=== PATIENT | female | born 1940 | race Caucasian/White ===

== ENCOUNTER 2021-03-07 15:29 | Emergency (ER) | payer MEDICARE, OTHER, MEDICAID, SELFPAY ==
--- NOTE | ~2021-03-07 | XR_ITS ---
XR femur RT min 2V 03/07/2021 16:01 Indication: Right leg deformity. Patient heard pop with movement Procedure: 2 views right femur Comparison: No prior studies for comparison. Findings: There is an oblique displaced midshaft fracture of the femur with overriding of fracture fr agments as well as 22 degrees varus angulation. There is an intramedullary kajal with dynamic compressi on screw of the right femoral neck. There is chondrocalcinosis of the knee with moderate osteoarthrit is. There is extensive atherosclerosis. Impression: 1: Oblique displaced, angulated midshaft fracture of the right femur with overriding of fracture frag ments. Reviewed, dictated and finalized at location A. Impression: 1: Oblique displaced, angulated midshaft fracture of the right femur with overr iding of fracture fragments.
[2021-03-07 15:38] VITALS: BP 164/74; PULSE 81; RESP 13; TEMP 36.6; O2SAT 100
--- NOTE | 2021-03-07 15:38 | ED.LOWEXIN ---
HPI - Extremity Injury (Lower) General Chief Complaint: Extremity Injury, Lower Stated Complaint: Femur fracture - from [place] Time Seen by Provider: 03/07/21 15:33 History of Present Illness HPI Narrative: Patient is an 80-year-old female who presents ER with right femur deformity. Patient had recent left AKA at [facility] on 02/18/2021. Last night patient was being assisted from wheelchair to bed. The individual transferring the patient apparently could not fully hold her and patient slipped down. They then tried to pull her up towards the bed patient felt her legs snap while being pushed against the bed. X-ray apparently was obtained today and showed a femur fracture and the snf at the patient transferred to this facility. Patient reports 7/10 pain. She has no numbness or tingling. There is obvious deformity to the distal femur. There is a old wound to the lateral aspect of the right knee that is not related to the injury per patient and has a dressing on it. There is old bruising around it. Related Data Allergies Allergy/AdvReac Type Severity Reaction Status Date / Time levorphanol AdvReac Itching Verified 03/07/21 15:44 Penicillins AdvReac Itching Verified 03/07/21 15:44 vancomycin AdvReac Itching Verified 03/07/21 15:44 Review of Systems Review of Systems: All systems reviewed & are unremarkable except as noted in HPI and below Musculoskeletal: Comments: Right femur deformity/pain. Neurologic: Denies focal weakness and Denies numbness PMFSH Past Medical History Medical History (Updated 03/07/21 @ 16:42 by Michael Aguillon MD) Diabetes History of atrial fibrillation Hypertension Surgical History Surgical History (Updated 03/07/21 @ 16:28 by Michael Aguillon MD) History of hip surgery History of left above knee amputation Pacemaker Social History Social History (Updated 03/07/21 @ 16:29 by Michael Aguillon MD) Social History: Resides at [facility] Smoking status: Never smoker Exam Narrative: Exam Narrative: GENERAL: Well-appearing, well-nourished, and in no acute distress. HEAD: Normocephalic, atraumatic. ENT: Mucous membranes moist. CHEST: Clear to auscultation. No respiratory distress. HEART: Regular rate and rhythm. Normal peripheral pulses. EXTREMITIES: Left lower extremity with AKA and wrapped. Right lower extremity with deformity of the femur. Sensation intact in right lower extremity with normal dorsalis pedis and posterior tibial pulses. Patient can move at the ankle and toes. Fracture is closed. SKIN: Warm, dry, no rash. Bruising and dressed wound to the lateral aspect of the right knee with bruising. NEURO: Alert and oriented x3. PSYCH: Normal mood and affect. Course Course Emergency Course: Orthopedic surgery has selected images and recommends tertiary care center given midshaft large bone fracture with proximal hardware and recent admission at [facility]. I have discussed the case with the ER and Dr. Berrios who has accepted the patient. Vital Signs Vital signs: Vital Signs Temperature 97.8 F 03/07/21 15:38 Pulse Rate 81 03/07/21 15:38 Respiratory Rate 13 03/07/21 15:38 Blood Pressure 164/74 H 03/07/21 15:38 Pulse Oximetry 100 03/07/21 15:38 Temperature 97.8 F 03/07/21 15:38 Pulse Rate 81 03/07/21 15:38 Respiratory Rate 13 03/07/21 15:38 Blood Pressure 164/74 H 03/07/21 15:38 Pulse Oximetry 100 03/07/21 15:38 MDM - Extremity Injury (Lower) Imaging Data Radiologist's impression: ITS Impressions Femur X-Ray 03/07/21 16:02 Impression: 1: Oblique displaced, angulated midshaft fracture of the right femur with overriding of fracture fragments. Discharge Plan Discharge Clinical Impression: Femur fracture, right Patient Disposition: Acute Care Hospital Condition: Stable Follow-up/Referrals: Juan Jose,Mynor Moya MD [Primary Care Provider] -
--- NOTE | 2021-03-07 16:47 | PC.NURSE ---
made contact with wally to transfer pt to [facility]. darell sims is in route
[2021-03-07] MEDS: MORPHINE SULFATE (*CRX) 4 MG/ML INJ IV PUSH (17:06)
[2021-03-07 17:08] VITALS: BP 160/68; PULSE 72; RESP 23; O2SAT 99
--- NOTE | 2021-03-07 18:17 | PC.NURSE ---
[facility] has arrived
[2021-03-07 18:32] VITALS: BP 156/71; PULSE 98; RESP 19; O2SAT 96
== END 2021-03-07 18:33 | disposition short-term general hospital (02) ==
PROVIDERS: Emergency Provider Emergency Medicine; PCP Family Medicine
DX: S72.331A Displaced oblique fracture of shaft of right femur, initial encounter for closed fracture (principal); Z89.612 Acquired absence of left leg above knee; E11.9 Type 2 diabetes mellitus without complications; I48.91 Unspecified atrial fibrillation; I10 Essential (primary) hypertension; Z95.0 Presence of cardiac pacemaker; W23.1XXA Caught, crushed, jammed, or pinched between stationary objects, initial encounter
CPT/HCPCS: 73552; 96374; 99285; J2270

== ENCOUNTER 2021-04-27 22:31 | Inpatient (IN) | payer MEDICARE, OTHER, MEDICAID, SELFPAY ==
[2021-04-27] VITALS (14 sets, daily range): BP systolic 106–124; BP diastolic 54–66; PULSE 69–78; RESP 12–19; TEMP 36.3; O2SAT 95–100
--- NOTE | ~2021-04-27 | US_ITS ---
EXAMINATION: US renal BI DATE: 04/28/2021 16:17 INDICATION: Acute on chronic renal insufficiency. TECHNIQUE: Multiple ultrasound grayscale images of the kidneys were obtained. COMPARISON: None. FINDINGS: The right kidney measures 10.4 x 4.6 x 5.2 cm. The left kidney measures 9.8 x 4.5 x 3.9 cm. There is diffuse mild increased echogenicity in the bilateral kidneys. There are few bilateral anechoic renal cysts measuring 1.4 cm in maximal diameter at the lower pole of the right kidney, 2.7 cm the upper po le of the left kidney, 1.7 cm mid left kidney and 2.2 cm exophytic cyst at the inferior left kidney. There is no hydronephrosis in either kidney. No stones identified. Bilateral ureteral jets are visua lized in the bladder. There is a small amount of dependently layering hyperechoic debris in the bladd er. IMPRESSION: 1. Bilateral mild increased renal cortical echogenicity consistent with medical renal disease. No hy dronephrosis. Reviewed, dictated and finalized at location A. IMPRESSION: 1. Bilateral mild increased renal cortical echogenicity consistent with medica l renal disease. No hydronephrosis.
--- NOTE | ~2021-04-27 | XR_ITS ---
XR abdomen obstructive series DATE: 04/28/2021 15:27 INDICATION: Rectal pain. Evaluate for rectal fecal impaction TECHNIQUE: Supine and upright AP views of the abdomen COMPARISON: None FINDINGS: Status post sternotomy/cardiac valve replacement. Left-sided cardiac pacemaker/right atrial and right ventricular pacemaker leads. Surgical clips overlie left and right upper quadrants of the abdomen. Moderately prominent of fecal material in the colon. No bowel obstruction is evident. The psoas shadows are intact. No visceromegaly is evident. Bilateral compression screw and nail devices of the proximal femurs. Diffuse osteopenia. Rotatory dextroscoliosis and degenerative change of the lumbar spine and degenera tive spurring of the lower thoracic spine. IMPRESSION: Moderately prominent of fecal material in the colon; no bowel obstruction Reviewed, dictated and finalized at Location [facility]. Reviewed, dictated and finalized at location A. IMPRESSION: Moderately prominent of fecal material in the colon; no bowel obstr uction
--- NOTE | ~2021-04-27 | XR_ITS ---
XR chest 1V portable 04/30/2021 12:05 Indication: Shortness of breath. Mechanical heart valve. Procedure: AP portable chest Comparison: No prior studies for comparison. Findings: Patchy bilateral airspace disease. Status post median sternotomy for CABG. There is a prost hetic heart valve. Pacemaker leads in the right atrium and right ventricle. Impression: 1: Patchy bilateral airspace disease which may represent pneumonia or edema. Reviewed, dictated and finalized at location A. Impression: 1: Patchy bilateral airspace disease which may represent pneumonia or edema.
[2021-04-27] MEDS: SODIUM CHLORIDE 0.9% IV 1,000 ML 999 ML IV CONT (23:58)
[2021-04-28] VITALS (29 sets, daily range): BP systolic 92–144; BP diastolic 42–82; PULSE 56–82; RESP 12–23; TEMP 36.3–36.8; O2SAT 98–100; BMI 19.1
[2021-04-28 00:05] LABS: Basophils Percent Auto 0.2 % (0.2-1.2); Eosinophils Percent Auto 0.3 % (0-4.4); Hematocrit 32.1 % (37.0-47.0); Hemoglobin 10.3 g/dL (12.0-15.0); Immature Granulocyte Absolute 0.08 K/mm3 (0.00-0.031); Immature Granulocyte Percent A 0.5 % (0-0.5); Lymphocytes Absolute Auto 1.61 K/mm3 (0.9-3.2); Lymphocytes Percent Auto 10.9 % (18.3-44.2); Mean Corpuscular HGB Conc 32.1 g/dl (32-36); Mean Corpuscular Hemoglobin 30.6 pg (26-34); Mean Corpuscular Volume 95.3 fl (80-100); Mean Platelet Volume 9.5 fl (7.4-10.4); Monocytes Absolute Auto 0.7 K/mm3 (0.1-0.6); Monocytes Percent Auto 4.5 % (2.6-8.5); Neutrophils Absolute Auto 12.4 K/mm3 (1.3-6.7); Neutrophils Percent Auto 83.6 % (45.5-73.1); Platelet Count Result 420 k/mm3 (150-375); Red Blood Count 3.37 M/mm3 (4.2-5.4); Red Cell Distribution Width 17.6 % (11.5-14.5); White Blood Count 14.8 K/mm3 (4.5-10.0)
--- NOTE | 2021-04-28 00:06 | ED.GENADULT ---
HPI - General Adult General Chief complaint: Recheck/Abnormal Lab/Rx Stated complaint: abn labs and ams Time Seen by Provider: 04/27/21 22:46 History of Present Illness HPI narrative: Patient 80-year-old female presents the emergency department with chief complaint of abnormal labs. Patient has been a little bit less active than normal and they were concerned that she is getting dehydrated. The patient had laboratory studies done today that showed that her INR was elevated and her creatinine had trended up to 1.9. Patient does have history of dementia and is currently a [facility] she has had an amputation of the left lower extremity and has a wound on her right heel. The patient also had a fracture of her right lower extremity that was being treated with conservative management since she is a nonsurgical candidate. Related Data Allergies Allergy/AdvReac Type Severity Reaction Status Date / Time levorphanol AdvReac Itching Verified 04/28/21 00:46 Penicillins AdvReac Itching Verified 04/28/21 00:46 vancomycin AdvReac Itching Verified 04/28/21 00:46 Review of Systems Review of Systems: Narrative: A 10 system review of systems was completed on the patient and is negative except for what is stated in the HPI. Nursing and ancillary documentation was reviewed. [facility] Past Medical History Medical History Diabetes History of atrial fibrillation Hypertension Surgical History Surgical History History of hip surgery History of left above knee amputation Pacemaker Social History Social History Social History: Resides at [facility] Smoking status: Never smoker Exam Narrative: Exam Narrative: GENERAL: Well-appearing, well-nourished, and in no acute distress. HEAD: Normocephalic, atraumatic. EYES: PERRLA and EOMI. ENT: Nares clear, no rhinorrhea or epistaxis. Mucous membranes moist. NECK: Supple. CHEST: Clear to auscultation. No respiratory distress. HEART: Regular rate and rhythm. No murmur heard. Normal peripheral pulses. ABDOMEN: Soft, nontender, nondistended, normal active bowel sounds. EXTREMITIES: There is amputation of the left lower extremity right lower extremity has a protective boot on SKIN: Warm, dry, no rash. NEURO: No focal deficits. Alert and oriented x3. PSYCH: Normal mood and affect. Course Vital Signs Vital signs: Vital Signs Temperature 36.3 C L 04/27/21 22:35 Pulse Rate 76 04/27/21 22:35 Respiratory Rate 18 04/27/21 22:35 Blood Pressure 124/61 04/27/21 22:35 Pulse Oximetry 100 04/27/21 22:35 Temperature 36.3 C L 04/27/21 22:35 Pulse Rate 72 04/27/21 23:30 Respiratory Rate 12 04/27/21 23:30 Blood Pressure 115/59 L 04/27/21 23:30 Pulse Oximetry 100 04/27/21 23:15 Medical Decision Making Vital Signs Vital Signs: Vital Signs Temperature 36.3 C L 04/27/21 22:35 Pulse Rate 76 04/27/21 22:35 Respiratory Rate 18 04/27/21 22:35 Blood Pressure 124/61 04/27/21 22:35 Pulse Oximetry 100 04/27/21 22:35 Temperature 36.3 C L 04/27/21 22:35 Pulse Rate 72 04/27/21 23:30 Respiratory Rate 12 04/27/21 23:30 Blood Pressure 115/59 L 04/27/21 23:30 Pulse Oximetry 100 04/27/21 23:15 Lab Data Result diagrams: 04/27/21 23:54 04/27/21 23:54 Labs: Lab Results 04/27/21 04/27/21 04/27/21 Range/Units 23:45 23:54 23:54 WBC 14.8 H (4.5-10.0) K/mm3 RBC 3.37 L (4.2-5.4) M/mm3 Hgb 10.3 L (12.0-15.0) g/dL Hct 32.1 L (37.0-47.0) % MCV 95.3 (80-100) fl MCH 30.6 (26-34) pg MCHC 32.1 (32-36) g/dl RDW 17.6 H (11.5-14.5) % Plt Count 420 H (150-375) k/mm3 MPV 9.5 (7.4-10.4) fl Immature Gran % (Auto) 0.5 (0-0.5) % Neut % (Auto) 83.6 H (45.
[2021-04-28 00:08] LABS: Add Urine Microscopic? YES; Appearance Urine Turbid (Clear); Bacteria Urine 4+ /hpf; Bilirubin Urine Negative (Negative); Blood Urine 1+ (Negative); Color Urine Yellow (Yellow); Glucose Urine UA Negative (Negative); Ketones Urine Negative (Negative); Leukocyte Esterase Ur 3+ LEU/UL (Negative); Nitrate Urine Negative (Negative); Protein Urine 2+ mg/dL (Negative); RBC Urine >75 /hpf (0-2); Specific Grav Ur 1.015 (1.001-1.035); Urobilinogen Urine Negative mg/dL (<2.0); WBC Clumps Urine Present /HPF; WBC Urine >75 /hpf
[2021-04-28 00:13] LABS: Alanine Aminotransferase 13 U/L (4-35); Albumin Level 2.6 g/dL (3.5-5.1); Alkaline Phosphatase 166 U/L (38-126); Anion Gap 11 mmol/L (8-16); Aspartate Amino Transferase 35 U/L (14-36); Bilirubin,Total 0.5 mg/dL (0.2-1.3); Blood Urea Nitrogen 45 mg/dL (7-17); Calcium 8.9 mg/dL (8.4-10.2); Carbon Dioxide 16 mmol/L (22-30); Chloride 109 mmol/L (98-107); Estimated Glomerular Filt Rate 23; Glucose 142 mg/dL (65-105); Potassium 3.5 mmol/L (3.4-5.0); Sodium 136 mmol/L (137-145)
[2021-04-28 00:18] LABS: Prothrombin Time 59.3 Seconds (11.1-14.7)
[2021-04-28 00:19] LABS: Partial Thromboplastin Time 72.5 SECONDS (22.3-36.8)
[2021-04-28 00:23] LABS: INR 6.9
[2021-04-28] MEDS: PHYTONADIONE 5 MG TABLET PO (01:21)
--- NOTE | 2021-04-28 03:38 | PC.NURSE ---
This patient, Nadege Bryan, was admitted to 3 Med Surg Room 324-01 @03:25. Report taken from Mauricio in ER. Patient/family oriented to hospital policies and general routines including ID bracelet, bed and alarms, visiting hours, pain management, procedures, bathroom and other care routines, personal items, smoking policy, room service/diet, and visiting hours. Information on how to activate the Rapid Response Team has been discussed. Patient/Family are encouraged to report perceived risks to care and to ask questions if they do not understand what they are told or what they should do.
--- NOTE | 2021-04-28 05:17 | PM.IMHP ---
H&P: HPI History of Present Illness Date/Time: 04/28/21 05:17 Chief Complaint: Abnormal labs Narrative: 80-year-old female with past medical history of dementia, atrial fibrillation on chronic anticoagulation with Coumadin, hypertension and diabetes who [facility] due to abnormal labs drawn at the jail on the morning of the . The patient had routine labs drawn and her INR was found to be greater than 6. Her BUN and creatinine are also elevated above her baseline up to 1.9. The patient has history of prior amputation of the left lower extremity. She has a wound to her right heel. She also had a recent right lower extremity fracture that is being treated conservatively. The patient is alert oriented to name only. She is incontinent of urine. She has been afebrile since presentation. She denies any pain. Review of Systems Review of Systems: ROS unobtainable: Yes unobtainable due to medical condition (Dementia) [facility] Past Medical History Medical History (Updated 04/28/21 @ 05:49 by Margi Jorge DO) Aortic valve stenosis Chronic anemia Chronic constipation Chronic diastolic heart failure Chronic kidney disease, stage 4 (severe) COPD (chronic obstructive pulmonary disease) Dementia Depression Diabetes Diabetic neuropathy GERD (gastroesophageal reflux disease) History of atrial fibrillation Hypertension Obstructive sleep apnea Osteoporosis Vitamin D deficiency Surgical History Surgical History (Updated 04/28/21 @ 05:49 by Margi Jorge DO) H/O prosthetic heart valve History of hip surgery History of left above knee amputation Pacemaker Due to sick sinus syndrome Family History Family History Other Unknown family medical history Social History Social History (Updated 04/28/21 @ 07:49 by Margi Jorge DO) Social History: Resides at [facility]. Code status: Full code Decision maker: Gay Bryan (daughter) Smoking status: Unknown if ever smoked Alcohol intake: unknown Substance use: unknown Spiritual care concerns: No Meds Home Medications and Allergies Home Medications Medication Instructions Recorded Confirmed Type acetaminophen 325 mg PO Q6-8H PRN 04/28/21 04/28/21 History albuterol sulfate [ProAir HFA] 1 inh INHALATION Q6-8H PRN 04/28/21 04/28/21 History arginine-vitamin C-vitamin E 4.5 g PO DAILY 04/28/21 04/28/21 History [Arginaid] calcium carbonate 500 mg PO BID 04/28/21 04/28/21 History ergocalciferol (vitamin D2) 1,250 mcg PO 2XW 04/28/21 04/28/21 History [Vitamin D2] furosemide 20 mg PO BID 04/28/21 04/28/21 History gabapentin 300 mg PO TID 04/28/21 04/28/21 History insulin lispro 1 sliding scale dose SUBCUT TID 04/28/21 04/28/21 History metoprolol succinate 50 mg PO DAILY 04/28/21 04/28/21 History mirtazapine 15 mg PO HS 04/28/21 04/28/21 History naloxegol [Movantik] 12.5 mg PO QAM 04/28/21 04/28/21 History ondansetron HCl [Zofran] 4 mg PO Q6H PRN 04/28/21 04/28/21 History oxycodone 5 mg PO Q8H PRN 04/28/21 04/28/21 History pantoprazole 40 mg PO BID 04/28/21 04/28/21 History polyethylene glycol 3350 17 g PO DAILY 04/28/21 04/28/21 History psyllium husk [Metamucil] 1 tsp PO ONCE 04/28/21 04/28/21 History sennosides [Senexon] 8.6 mg PO BID 04/28/21 04/28/21 History sodium chloride [Deep Sea Nasal] 1 spray INTRANASAL Q2-3H PRN 04/28/21 04/28/21 History white petrolatum 1 applic TOPICAL BID PRN 04/28/21 04/28/21 History Allergies Allergy/AdvReac Type Severity Reaction Status Date / Time levorphanol AdvReac Itching Verified 04/28/21 06:38 Penicillins AdvReac Itching Verified 04/28/21 06:38 vancomycin AdvReac Itching Verified 04/28/21 06:38 Vital Signs Vital Signs - 24 hr 04/27/21 22:35 04/27/21 22:42 04/27/21 22:43 Temperature 97.4 F L Pulse Rate 76 77 Respiratory Rate 18 15 Blood Pressure 124/61 Pulse Oxim
[2021-04-28 06:03] LABS: Hemoglobin 9.5 g/dL (12.0-15.0); Mean Corpuscular HGB Conc 31.7 g/dl (32-36); Mean Corpuscular Hemoglobin 29.7 pg (26-34); Mean Corpuscular Volume 93.8 fl (80-100); Mean Platelet Volume 9.4 fl (7.4-10.4); Platelet Count Result 392 k/mm3 (150-375); Red Cell Distribution Width 17.3 % (11.5-14.5); White Blood Count 11.3 K/mm3 (4.5-10.0)
[2021-04-28] MEDS: SODIUM CHLORIDE 0.9% IV 1,000 ML 125 ML IV CONT ×3 (06:03→21:32)
[2021-04-28 06:12] LABS: Prothrombin Time 61.5 Seconds (11.1-14.7)
[2021-04-28 06:21] LABS: INR 7.2
[2021-04-28 06:23] LABS: Anion Gap 10 mmol/L (8-16); Blood Urea Nitrogen 42 mg/dL (7-17); Calcium 8.3 mg/dL (8.4-10.2); Carbon Dioxide 15 mmol/L (22-30); Chloride 112 mmol/L (98-107); Estimated CRCL calculation 16 ml/min; Estimated Glomerular Filt Rate 24; Glucose 151 mg/dL (65-105); Potassium 3.2 mmol/L (3.4-5.0); Sodium 137 mmol/L (137-145)
--- NOTE | 2021-04-28 06:33 | PC.NURSE ---
attempted to call Dr. Jorge with critical INR at 06:32 will try her again
[2021-04-28 08:02] LABS: Glucose Point of Care 115 mg/dl (65-105)
[2021-04-28] MEDS: PANTOPRAZOLE 40 MG TABLET PO ×2 (09:21→18:13)
[2021-04-28] MEDS: SENNOSIDES 8.6 MG TABLET PO ×2 (09:21→18:13)
[2021-04-28] MEDS: GABAPENTIN 300 MG CAPSULE PO ×2 (09:21→18:13)
[2021-04-28] MEDS: METOPROLOL SUCCINATE EXT REL 50 MG TABCR PO (09:21)
[2021-04-28] MEDS: CALCIUM CARBONATE (OSCAL) 500 MG TABLET PO ×2 (09:21→18:13)
[2021-04-28] MEDS: polyethylene glycoL 3350 17 GM POWD.PACK PO (09:22)
[2021-04-28] MEDS: POTASSIUM CHLORIDE 20 MEQ PACKET (FOR LIQUID) PO (09:26)
[2021-04-28] MEDS: PSYLLIUM POWDER PACKET 1 PACKET PO (09:27)
[2021-04-28 11:56] LABS: Glucose Point of Care 144 mg/dl (65-105)
--- NOTE | 2021-04-28 13:49 | PM.IMPN ---
Progress Note: A&P Assessment and Plan (1) Acute UTI: Code(s): N39.0 - Urinary tract infection, site not specified Status: Acute Assessment and Plan: UA noted. UCx pending. Patient has likely UTI with pyuria and bacteriuria in the setting of leukocytosis. Patient has been started on empiric antibiotic therapy with Rocephin. Follow up on UCx. (2) Supratherapeutic INR: Code(s): R79.1 - Abnormal coagulation profile Status: Acute Assessment and Plan: Patient has supratherapeutic INR at 6.9 due to Coumadin. No active bleeding noted. Hgb 10.3. Coumadin held. The patient received 1 dose of oral vitamin K in the ER. Repeat INR this a.m. is now 7.2. Will monitor for signs of active bleeding. Hgb 9.5 today. Follow since suspect INR will start to trend down tomorrow. More aggressive intervention if she has episode of bleeding. (3) Acute kidney injury: Code(s): N17.9 - Acute kidney failure, unspecified Status: Acute Assessment and Plan: Cr 2.1 on admission. Patient has a history of chronic kidney disease but creatinine is reportedly worse than baseline. Treated with IV fluid hydration and repeat Cr 2.0 now. She has worsening nongap metabolic acidosis probably related to her CKD. Add bicarb. Need old records to have clearer baseline. Check renal US. lasix remains on hold. (4) Diabetes: Code(s): E11.9 - Type 2 diabetes mellitus without complications Status: Acute Assessment and Plan: The patient's blood glucose was reviewed on 04/28 Glucose remains well controlled. Continue AccuCheks covering with sliding scale. Hypoglycemia protocol available as needed. (5) History of atrial fibrillation: Code(s): Z86.79 - Personal history of other diseases of the circulatory system Status: Acute Assessment and Plan: Regular on exam. Probably paced rhythm. Continue Metoprolol. INR as mentioned above. (6) Rectal pain: Code(s): K62.89 - Other specified diseases of anus and rectum Status: Acute Assessment and Plan: Patient with intermittent rectal pain. No complaints of constipation; no blood. She was eating so exam was deferred. Will check obstructive series to exclude fecal impaction (7) Dementia: Code(s): F03.90 - Unspecified dementia without behavioral disturbance Status: Acute Assessment and Plan: Patient somnolent and somewhat oriented. Calm and cooperative. Probably vascular in nature. Continue Remeron (8) Decubitus ulcer, heel: Code(s): L89.609 - Pressure ulcer of unspecified heel, unspecified stage Status: Acute Assessment and Plan: Noted and present on admission. Plan for wound care consult. Continue recommended dressing changes. (9) Femur fracture, right: Code(s): S72.91XA - Unspecified fracture of right femur, initial encounter for closed fracture Status: Acute Assessment and Plan: Patietn here to the ED on 03/07/21 for a fall at the [place]. X-ray showing right femur oblique displaced, angulated midshaft fracture with overriding of fracture fragments. Plan was for non-surgical treatment. Subjective Date/time seen: 04/28/21 13:49 Interval history: 80yo female with dementia, AFib on shelter anticoagulation and CKD here for abnormal lab work with elevated Cr and INR. Patient is alert but confused. She states she slept poorly. She denies CP. no n/v. Sleepy this morning. Family concerned about patient complaint of rectal pain. Patient states rectal pain comes and goes without a preceding event. No mealna or hematachezia. Going on for a few weeks. No recent colonoscopy. Exam Narrative: Exam Narrative: AF 97.9 120/52 56 16 100% ra Gen - NARD sitting up in bed Chest - CTA bilaterally, nml RR CV - RRR S1/S2 Abd - Soft, NT/ND, Positive BS Ext - No pedal edema. Left AKA. Neuro - Alert but confus
[2021-04-28 17:24] LABS: Glucose Point of Care 117 mg/dl (65-105)
[2021-04-28] MEDS: SILVERGEL (ELTA) 45 ML 1 APPLIC TOPICAL (17:58)
[2021-04-28] MEDS: SALINE LOCK FLUSH 10 ML IV PUSH ×2 (17:59→21:28)
[2021-04-28] MEDS: SODIUM BICARBONATE TAB 325 MG TABLET PO (18:13)
[2021-04-28] MEDS: MIRTAZAPINE 15 MG TABLET PO (21:28)
[2021-04-28 23:24] LABS: Glucose Point of Care 136 mg/dl (65-105)
[2021-04-29] MEDS: SALINE LOCK FLUSH 20 ML IV PUSH (04:52)
[2021-04-29] MEDS: SALINE LOCK FLUSH 10 ML IV PUSH ×3 (04:52→21:44)
[2021-04-29 05:11] LABS: Basophils Percent Auto 0.2 % (0.2-1.2); Eosinophils Absolute Auto 0.3 K/mm3 (0-0.3); Eosinophils Percent Auto 3.4 % (0-4.4); Hematocrit 24.8 % (37.0-47.0); Immature Granulocyte Absolute 0.06 K/mm3 (0.00-0.031); Immature Granulocyte Percent A 0.6 % (0-0.5); Lymphocytes Absolute Auto 1.29 K/mm3 (0.9-3.2); Lymphocytes Percent Auto 12.9 % (18.3-44.2); Mean Corpuscular HGB Conc 32.3 g/dl (32-36); Mean Corpuscular Hemoglobin 30.2 pg (26-34); Mean Corpuscular Volume 93.6 fl (80-100); Mean Platelet Volume 9.5 fl (7.4-10.4); Monocytes Absolute Auto 0.8 K/mm3 (0.1-0.6); Monocytes Percent Auto 7.5 % (2.6-8.5); Neutrophils Absolute Auto 7.5 K/mm3 (1.3-6.7); Neutrophils Percent Auto 75.4 % (45.5-73.1); Platelet Count Result 317 k/mm3 (150-375); Red Blood Count 2.65 M/mm3 (4.2-5.4); Red Cell Distribution Width 17.6 % (11.5-14.5)
[2021-04-29 05:22] LABS: Hemoglobin A1C 5.1 % (<5.7)
[2021-04-29 05:23] LABS: INR 2.6
[2021-04-29 05:31] LABS: Complement C3 50 mg/dL (88-165)
[2021-04-29 05:34] LABS: Albumin Level 1.8 g/dL (3.5-5.1); Anion Gap 7 mmol/L (8-16); Blood Urea Nitrogen 31 mg/dL (7-17); CRP 4.5 mg/dL (<1.0); Calcium 7.7 mg/dL (8.4-10.2); Carbon Dioxide 13 mmol/L (22-30); Chloride 121 mmol/L (98-107); Estimated CRCL calculation 21 ml/min; Estimated Glomerular Filt Rate 33; Glucose 100 mg/dL (65-105); Magnesium 1.5 mg/dL (1.6-2.3); Phosphorus 3.3 mg/dL (2.5-4.5); Potassium 3.1 mmol/L (3.4-5.0); Sodium 141 mmol/L (137-145)
[2021-04-29] MEDS: SODIUM CHLORIDE 0.9% IV 1,000 ML 125 ML IV CONT (05:43)
[2021-04-29 06:00] VITALS: BP 108/47; PULSE 70; RESP 16; TEMP 36.6; O2SAT 99
[2021-04-29 08:31] LABS: Glucose Point of Care 102 mg/dl (65-105)
[2021-04-29] MEDS: MAGNESIUM SULF 2 GM/WATER 50ML 2 GM/50 ML BAG IVPB (08:37)
[2021-04-29] MEDS: polyethylene glycoL 3350 17 GM POWD.PACK PO (09:40)
[2021-04-29] MEDS: SENNOSIDES 8.6 MG TABLET PO ×2 (09:41→18:07)
[2021-04-29] MEDS: PANTOPRAZOLE 40 MG TABLET PO ×2 (09:41→18:08)
[2021-04-29] MEDS: GABAPENTIN 300 MG CAPSULE PO ×3 (09:41→18:07)
[2021-04-29] MEDS: SILVERGEL (ELTA) 45 ML 1 APPLIC TOPICAL (09:41)
[2021-04-29] MEDS: METOPROLOL SUCCINATE EXT REL 50 MG TABCR PO (09:41)
[2021-04-29] MEDS: POTASSIUM CHLORIDE 20 MEQ TABLET 40 MEQ PO (09:41)
[2021-04-29] MEDS: SODIUM BICARBONATE TAB 325 MG TABLET PO (09:41)
[2021-04-29] MEDS: CALCIUM CARBONATE (OSCAL) 500 MG TABLET PO ×2 (09:41→18:07)
[2021-04-29] MEDS: PSYLLIUM POWDER PACKET 1 PACKET PO (09:41)
[2021-04-29 13:14] LABS: Glucose Point of Care 164 mg/dl (65-105)
[2021-04-29 14:00] VITALS: BP 116/51; PULSE 70; RESP 16; TEMP 36.1; O2SAT 100
--- NOTE | 2021-04-29 15:37 | PM.IMPN ---
Progress Note: A&P Assessment and Plan (1) Acute UTI: Code(s): N39.0 - Urinary tract infection, site not specified Status: Acute Assessment and Plan: UA noted. UCx growing 50-100K Klebsiella and 100K Enterococcus. Patient has likely UTI with pyuria, 3+ LE and bacteriuria in the setting of leukocytosis. Patient was started on empiric antibiotic therapy with Rocephin. WBC has normallized and her mental status is better. Suspect related to the Klebsiella and not the Enterococcus given her improvement. Enterococcus probably more likely a contaminate. Continue the same. Narrow abx when sensitivities are back (2) Supratherapeutic INR: Code(s): R79.1 - Abnormal coagulation profile Status: Acute Assessment and Plan: Patient has supratherapeutic INR at 6.9 due to Coumadin. No active bleeding noted. Hgb 10.3. Coumadin held. The patient received 1 dose of oral vitamin K in the ER. Repeat INR this a.m. is now 2.6. Hgb dropped to 8.0 today. Continue daily INR. Resume Coumadin. (3) Acute kidney injury: Code(s): N17.9 - Acute kidney failure, unspecified Status: Acute Assessment and Plan: Cr 2.1 on admission. Patient has a history of chronic kidney disease but creatinine is worse than baseline. Baseline Cr 1.3 range in march. Renal US showing bilateral mild increased renal cortical echogenicity consistent with medical renal disease but no hydronephrosis. Treated with IV fluid hydration and repeat Cr 1.5 now. She has worsening nongap metabolic acidosis probably related to her CKD. Increase bicarb. Stop IV fluids. (4) Diabetes: Code(s): E11.9 - Type 2 diabetes mellitus without complications Status: Acute Assessment and Plan: The patient's blood glucose was reviewed on 04/29 Glucose remains well controlled. Continue AccuCheks covering with sliding scale. Hypoglycemia protocol available as needed. (5) History of atrial fibrillation: Code(s): Z86.79 - Personal history of other diseases of the circulatory system Status: Acute Assessment and Plan: Regular on exam. Probably paced rhythm. Continue Metoprolol. INR as mentioned above. (6) Rectal pain: Code(s): K62.89 - Other specified diseases of anus and rectum Status: Acute Assessment and Plan: Patient with intermittent rectal pain. No complaints of constipation; no blood. Obstructive series showing moderately prominent of fecal material in the colon. Miralax increased and patietn with increased number of stools. Continue to monitor (7) Dementia: Code(s): F03.90 - Unspecified dementia without behavioral disturbance Status: Acute Assessment and Plan: Patient has dementia but more oriented today. Dementia probably vascular in nature. Continue Remeron (8) Decubitus ulcer, heel: Code(s): L89.609 - Pressure ulcer of unspecified heel, unspecified stage Status: Acute Assessment and Plan: Noted and present on admission. Continue current wound care. (9) Femur fracture, right: Code(s): S72.91XA - Unspecified fracture of right femur, initial encounter for closed fracture Status: Acute Assessment and Plan: Patient here to the ED on 03/07/21 for a fall at the [place]. X-ray showing right femur oblique displaced, angulated midshaft fracture with overriding of fracture fragments. Plan was for non-surgical treatment. Bedrest (10) Anemia: Code(s): D64.9 - Anemia, unspecified Status: Acute Assessment and Plan: hgb 10.3 on admission but dropped to 8 today possibly related to IV fluids but more likely chronic. She is noted to have chronic anemia running in the 8 range at the [facility]. Check B12, iron studies. Subjective Date/time seen: 04/29/21 15:37 Interval history: 80yo female with dementia, AFib on longterm anticoagulation and CKD here for abnormal lab work with elevated
[2021-04-29 16:32] LABS: Glucose Point of Care 122 mg/dl (65-105)
[2021-04-29] MEDS: WARFARIN (*PBKC) 3 MG TABLET PO (18:53)
[2021-04-29] MEDS: SODIUM BICARBONATE TAB 650 MG TABLET PO (18:54)
[2021-04-29 21:30] VITALS: BP 106/50; PULSE 68; RESP 16; TEMP 36.5; O2SAT 100
[2021-04-29] MEDS: MIRTAZAPINE 15 MG TABLET PO (21:44)
[2021-04-30 00:40] LABS: Glucose Point of Care 192 mg/dl (65-105)
[2021-04-30] MEDS: oxyCODONE HCL (*CRX) 5 MG TAB IR PO ×2 (02:06→13:19)
[2021-04-30 06:00] VITALS: BP 129/55; PULSE 69; RESP 16; TEMP 36.6; O2SAT 99
[2021-04-30] MEDS: SALINE LOCK FLUSH 10 ML IV PUSH ×3 (06:10→21:34)
[2021-04-30 06:49] LABS: Hematocrit 27.1 % (37.0-47.0); Hemoglobin 8.6 g/dL (12.0-15.0); Mean Corpuscular HGB Conc 31.7 g/dl (32-36); Mean Corpuscular Volume 94.4 fl (80-100); Mean Platelet Volume 9.5 fl (7.4-10.4); Platelet Count Result 300 k/mm3 (150-375); Red Blood Count 2.87 M/mm3 (4.2-5.4); Red Cell Distribution Width 17.8 % (11.5-14.5); White Blood Count 12.1 K/mm3 (4.5-10.0)
[2021-04-30 07:01] LABS: Anion Gap 6 mmol/L (8-16); Blood Urea Nitrogen 24 mg/dL (7-17); Calcium 7.8 mg/dL (8.4-10.2); Carbon Dioxide 13 mmol/L (22-30); Chloride 118 mmol/L (98-107); Estimated CRCL calculation 26 ml/min; Estimated Glomerular Filt Rate 43; Glucose 111 mg/dL (65-105); Phosphorus 2.8 mg/dL (2.5-4.5); Potassium 3.8 mmol/L (3.4-5.0); Sodium 137 mmol/L (137-145)
[2021-04-30 07:14] LABS: Iron 26 ug/dL (37-170)
[2021-04-30 07:23] LABS: Percent Iron Saturation 22 % (20-50)
[2021-04-30 08:06] LABS: Folic Acid 12.7 ng/mL (2.76->20); Vitamin B12 > 1000.0 pg/mL (239-931)
--- NOTE | 2021-04-30 08:42 | PM.IMPN ---
Progress Note: A&P Assessment and Plan (1) Acute UTI: Code(s): N39.0 - Urinary tract infection, site not specified Status: Acute Assessment and Plan: UA noted. UCx growing 50-100K ESBL Klebsiella and 100K Enterococcus (VRE). Patient has likely UTI with pyuria, 3+ LE and bacteriuria in the setting of leukocytosis. Patient was started on empiric antibiotic therapy with Rocephin. WBC improved and her mentation improved but Rocephin not appropriate coverage. Suspect related to the Klebsiella and not the Enterococcus given her improvement. Enterococcus probably more likely a contaminate. Will start Ertapenem and consult ID for further recommendations on treatment plan. (2) Supratherapeutic INR: Code(s): R79.1 - Abnormal coagulation profile Status: Acute Assessment and Plan: Patient has supratherapeutic INR at 6.9 due to Coumadin. No active bleeding noted. Hgb 10.3. Coumadin held. The patient received 1 dose of oral vitamin K in the ER. INR dropped to 2.6 yesterday and Coumadin resumed; INR 1.9 today. Hgb dropped to 8.0 but stabl at 8.6 today. no evidence of acute blood loss. Patietn states she has mechanical valves. Will check CXR and if so, will consider Heparin drip. Continue daily INR. Extra Coumadin today. (3) Acute kidney injury: Code(s): N17.9 - Acute kidney failure, unspecified Status: Acute Assessment and Plan: Cr 2.1 on admission. Patient has a history of chronic kidney disease but creatinine is worse than baseline. Baseline Cr 1.3 range in March. Renal US showing bilateral mild increased renal cortical echogenicity consistent with medical renal disease but no hydronephrosis. Low albumin but normal TP. Consider MM (SPEP pending). Consider also RA or elevated Ig. Check Ig, RF. Treated with IV fluid hydration and repeat Cr 1.2 now. Follow (4) Metabolic acidosis: Code(s): E87.2 - Acidosis Status: Acute Assessment and Plan: Patient noted to have serum bicarb 15-21 at the longterm. She has worsening nongap metabolic acidosis here. Serum bicarb 13 now despite adding bicarb. Urine pH 5. Potassium okay. 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 Continue bicarb. Check Romario, renin. (5) Diabetes: Code(s): E11.9 - Type 2 diabetes mellitus without complications Status: Acute Assessment and Plan: The patient's blood glucose was reviewed on 04/30 Glucose remains well controlled. Continue AccuCheks covering with sliding scale. Hypoglycemia protocol available as needed. (6) History of atrial fibrillation: Code(s): Z86.79 - Personal history of other diseases of the circulatory system Status: Acute Assessment and Plan: Regular on exam. Probably paced rhythm. Continue Metoprolol. INR as mentioned above. (7) Rectal pain: Code(s): K62.89 - Other specified diseases of anus and rectum Status: Acute Assessment and Plan: Patient with intermittent rectal pain. No complaints of constipation; no blood. Obstructive series showing moderately prominent of fecal material in the colon. Miralax increased and patietn with good stooloutput. No complaints of rectal pain here. Continue to monitor (8) Dementia: Code(s): F03.90 - Unspecified dementia without behavioral disturbance Status: Acute Assessment and Plan: Patient has dementia but more oriented overall. Dementia probably vascular in nature. Continue Remeron (9) Decubitus ulcer, heel: Code(s): L89.609 - Pressure ulcer of unspecified heel, unspecified stage Status: Acute Assessment and Plan: Noted and present on admission. Continue current wound care. (10) Femur fracture, right: Code(s): S72.91XA - Unspecified fracture of right femur, initial encounter for closed fracture Status: Acute Assessment and Plan: Patient here to the ED on
[2021-04-30 08:53] LABS: Glucose Point of Care 98 mg/dl (65-105)
[2021-04-30] MEDS: CALCIUM CARBONATE (OSCAL) 500 MG TABLET PO ×2 (09:04→17:14)
[2021-04-30] MEDS: SENNOSIDES 8.6 MG TABLET PO ×2 (09:04→17:15)
[2021-04-30] MEDS: METOPROLOL SUCCINATE EXT REL 50 MG TABCR PO (09:04)
[2021-04-30] MEDS: GABAPENTIN 300 MG CAPSULE PO ×2 (09:04→17:15)
[2021-04-30] MEDS: PANTOPRAZOLE 40 MG TABLET PO ×2 (09:04→17:14)
[2021-04-30] MEDS: SODIUM BICARBONATE TAB 650 MG TABLET PO ×2 (09:05→17:14)
[2021-04-30] MEDS: SILVERGEL (ELTA) 45 ML 1 APPLIC TOPICAL (09:05)
[2021-04-30 09:22] LABS: INR 1.9
[2021-04-30 09:39] LABS: Glucose Point of Care 111 mg/dl (65-105)
--- NOTE | 2021-04-30 10:25 | PCSTNOTE ---
Please refer to the Bedside Swallow Evaluation in the EMR. Please note, silent aspiration cannot be ruled out at bedside.
[2021-04-30 12:26] VITALS: BMI 19.1
[2021-04-30 12:45] LABS: Glucose Point of Care 161 mg/dl (65-105)
[2021-04-30] MEDS: ERTAPENEM 1 GM/NS 50 ML 1 GM/50 ML BAG IVPB (13:13)
[2021-04-30] MEDS: WARFARIN (*PBKC) 2 MG TABLET PO (13:19)
[2021-04-30 14:00] VITALS: BP 131/50; PULSE 69; RESP 14; TEMP 36.4; O2SAT 100
--- NOTE | 2021-04-30 14:41 | WPDINFPN2 ---
Progress Note: A&P Assessment and Plan (1) Acute UTI: Code(s): N39.0 - Urinary tract infection, site not specified Status: Acute Assessment and Plan: UTI with symptoms REC Ertapenem through 05/06. Her altered mental status (her CC along with elevated INR) is not due to UTI. Call if Qs Subjective Date/time seen: 04/30/21 14:41 Objective Data Vital Signs Vital Signs: Vital Signs - 24 hr 04/29/21 21:30 04/30/21 06:00 Temperature 36.5 C 36.6 C Pulse Rate 68 69 Respiratory Rate 16 16 Blood Pressure 106/50 L 129/55 L Pulse Oximetry 100 99 Intake/Output Intake/Output: Intake & Output 04/27/21 04/28/21 04/29/21 04/30/21 23:59 23:59 23:59 23:59 Intake Total 3930 2720 470 Balance 3930 2720 470 Meds/Results Medications: Active Medications Generic Name Dose Route Start Last Admin Trade Name Freq PRN Reason Stop Dose Admin Acetaminophen 650 mg 04/28/21 00:57 Acetaminophen 325 Mg Tablet PO Q4H PRN Mild Pain (1-3) or Fever Calcium Carbonate 500 mg 04/28/21 09:00 04/30/21 09:04 Calcium Carbonate (Oscal) 500 Mg Tablet PO 500 mg BID ISIAH Administration Dextrose 12.5 gm 04/28/21 06:00 Dextrose 50% 25 Gm/50 Ml Syringe IV PUSH PRN PRN Hypoglycemia Protocol Emollient Ointment 1 applic 04/28/21 05:54 Petrolatum Oint 30 Gm Tube TOPICAL BID PRN Itching Gabapentin 300 mg 04/28/21 09:00 04/30/21 13:16 Gabapentin 300 Mg Capsule PO Not Given TID ISIAH Glucagon 1 mg 04/28/21 06:00 Glucagon For Inj 1 Mg Vial IM PRN PRN Hypoglycemia Protocol Glucose 15 gm 04/28/21 06:00 Glucose Oral Gel 15 Gm Of Glucse In 37.5 Gm Tube PO PRN PRN Hypoglycemia Protocol Dextrose 1,000 mls @ 100 mls/hr 04/28/21 06:00 Dextrose 5% 1,000 Ml IVPB PRN PRN Hypoglycemia Protocol Insulin Aspart 2 - 5 units 04/28/21 08:00 04/30/21 13:12 Insulin Aspart (*Bkc) 100 Units/Ml SUB-Q Not Given TIDWM [facility] Protocol Metoprolol Succinate 50 mg 04/28/21 09:00 04/30/21 09:04 Metoprolol Succinate Ext Rel 50 Mg Tabcr PO 50 mg DAILY ISIAH Administration Mirtazapine 15 mg 04/28/21 21:00 04/29/21 21:44 Mirtazapine 15 Mg Tablet PO 15 mg HS ISIAH Administration Non-Formulary Medication 4.5 gm 04/28/21 09:00 Arginine-Vitamin C-Vitamin E [Arginaid] PO 05/28/21 09:01 DAILY ISIAH Oxycodone HCl 5 mg 04/28/21 05:54 04/30/21 13:19 Oxycodone Hcl (*Crx) 5 Mg Tab Ir PO 5 mg Q8H PRN Administration Pain 7-10 Pantoprazole Sodium 40 mg 04/28/21 09:00 04/30/21 09:04 Pantoprazole 40 Mg Tablet PO 40 mg BID ISIAH Administration Polyethylene Glycol 17 gm 04/29/21 09:00 04/30/21 09:04 Polyethylene Glycol 3350 17 Gm Powd.Pack PO Not Given BID [facility] Psyllium Hydrophilic Mucilloid 1 packet 04/28/21 09:00 04/30/21 09:05 Psyllium Powder Packet PO Not Given DAILY [facility] Senna 8.6 mg 04/28/21 09:00 04/30/21 09:04 Sennosides 8.6 Mg Tablet PO 8.6 mg BID ISIAH Administration Silver Nitrate 1 applic 04/28/21 09:00 04/30/21 09:05 Silvergel (Elta) 45 Ml TOPICAL 1 applic DAILY ISIAH Administration Sodium Bicarbonate 650 mg 04/29/21 17:00 04/30/21 09:05 Sodium Bicarbonate Tab 650 Mg Tablet PO 650 mg BID ISIAH Administration Sodium Chloride 1 spray 04/28/21 05:54 Saline 0.65% Hugh Soln 44 Ml Btl NASAL Q2-3H PRN Congestion Sodium Chloride 10 ml 04/28/21 14:00 04/30/21 13:26 Saline Lock Flush IV PUSH 10 ml Q8HR ISIAH Administration Sodium Chloride 10 ml 04/28/21 07:23 Saline Lock Flush IV PUSH PRN PRN Flush Sodium Chloride 20 ml 04/28/21 07:23 04/29/21 04:52 Saline Lock Flush IV PUSH 20 ml PRN PRN Administration after blood draws Warfarin Sodium 3 mg 04/29/21 17:00 04/29/21 18:53 Warfarin (*Pbkc) 3 Mg Tablet PO 3 mg DAILY@1700 [facility] Administration Radiology R
[2021-04-30] MEDS: FUROSEMIDE 20 MG TABLET PO (17:15)
[2021-04-30] MEDS: WARFARIN (*PBKC) 3 MG TABLET PO (17:15)
--- NOTE | 2021-04-30 18:01 | CONS_ITS ---
DATE OF CONSULTATION: 04/30/2021 REASON FOR CONSULTATION: UTI. HISTORY OF PRESENT ILLNESS: 80-year-old female who can provide very limited history. She has had no previous bladder nor kidney procedures nor operations. Record indicates no recent antibiotics. She was sent to the emergency room [facility] with a prolonged INR. She allegedly had decreased level of consciousness as well. Here, she had a UA collected by straight catheterization and consultation requested. She had been on ceftriaxone, changed to ertapenem today. She denies any abdominal pains, flank pain, subjective fever currently, chills or sweats. ALLERGIES: PENICILLIN AND VANCOMYCIN, BOTH CAUSE ITCHING. OTHERS NOT PERTINENT. HABITS: No tobacco. No alcohol. PRESENT MEDICATIONS: No systemic immunosuppressants. 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 FAMILY HISTORY: Not pertinent to her present illness. SOCIAL HISTORY: There is no family at the bedside. detention resident. Daughter is her decision maker. REVIEW OF SYSTEMS: 14-point review otherwise negative compromised by the patient's memory. She does note that her urine incontinence is unusual for her. PHYSICAL EXAMINATION: GENERAL: Elderly female who appears her actual age. No acute distress. VITAL SIGNS: Consistently afebrile, 69, 16, 129/55, 99% of room air. SKIN: Warm and dry. Multiple ecchymoses. NODES: No cervical adenopathy. EENT: Conjunctivae are clear. The oropharynx, oral mucosa is clear. Dry mucous membranes. NECK: No masses, meningismus or thyromegaly. LUNGS: Clear to auscultation and percussion. BACK: No CVAT. CARDIAC: Regular rate and rhythm with a grade 1/6 systolic flow murmur, left sternal border. No gallops. ABDOMEN: Nontender, soft. No organomegaly. No masses. Not distended. Normal bowel sounds. EXTREMITIES: Left AKA and right foot has no edema, clubbing, or cyanosis. LAB: Urinalysis, multiple abnormalities, which are reviewed. White count originally 14.8, now 12.1, hemoglobin 8.6, platelets 300. Her white blood cell count at her [facility] shortly before admission was normal. INR down to 1.9. Her sodium 136 on admission, CO2 of 16, BUN 45, creatinine 2.1, now 24 and 1.2. Iron and TIBC both low, ferritin high. Alkaline phosphatase high, albumin 2.0. Urine culture with an ESBL-producing klebsiella and VRE. RADIOLOGY: Ultrasound of the collecting system shows medical renal disease, otherwise normal. Chest x-ray done today, prosthetic heart valve, pacemaker, and patchy bilateral airspace disease. ASSESSMENT: 1. Urinary incontinence, mild leukocytosis with abnormal UA, suspect symptomatic urinary tract infection rather than asymptomatic bacteriuria. I agree that the vancomycin-resistant enterococcus is likely a saprophyte, but the extended spectrum beta-lactamase film producer is likely pathogen. 2. Decreased level of consciousness, not due to urinary tract infection. 3. Abnormal chest x-ray. She has no clinical findings to suggest pneumonia. 4. Multiple antibiotic allergies, tolerating other beta lactams, currently. 5. Dehydration and renal insufficiency accounting for her decreased level of consciousness. RECOMMENDATIONS: 1. I agree with ertapenem but adjust her dosing to 500 mg once daily. Continue for a 7-day course through May 06 a.m. dose. 2. Midline or similar device is now present in the right arm. Okay with me for discharge planning. 3. Thank you for heavenly
[2021-04-30 18:02] LABS: Glucose Point of Care 143 mg/dl (65-105)
[2021-04-30 18:31] LABS: INR 1.8; Prothrombin Time 21.6 Seconds (11.1-14.7)
[2021-04-30 18:32] LABS: Partial Thromboplastin Time 42.8 SECONDS (22.3-36.8)
[2021-04-30] MEDS: MIRTAZAPINE 15 MG TABLET PO (21:34)
[2021-04-30] MEDS: HEPARIN SOD/D5W 100 UNITS/ML 25,000 UNITS/250 ML BAG 6 UNITS IV CONT (21:35)
[2021-04-30 22:00] VITALS: BP 135/66; PULSE 71; RESP 18; TEMP 36.7; O2SAT 100
[2021-04-30 23:03] LABS: Glucose Point of Care 154 mg/dl (65-105)
[2021-05-01 03:57] LABS: Basophils Percent Auto 0.3 % (0.2-1.2); Eosinophils Absolute Auto 0.5 K/mm3 (0-0.3); Hematocrit 25.7 % (37.0-47.0); Hemoglobin 8.3 g/dL (12.0-15.0); Immature Granulocyte Absolute 0.05 K/mm3 (0.00-0.031); Immature Granulocyte Percent A 0.4 % (0-0.5); Lymphocytes Absolute Auto 1.55 K/mm3 (0.9-3.2); Lymphocytes Percent Auto 13.4 % (18.3-44.2); Mean Corpuscular HGB Conc 32.3 g/dl (32-36); Mean Corpuscular Hemoglobin 30.4 pg (26-34); Mean Corpuscular Volume 94.1 fl (80-100); Mean Platelet Volume 9.8 fl (7.4-10.4); Monocytes Absolute Auto 0.8 K/mm3 (0.1-0.6); Monocytes Percent Auto 7.1 % (2.6-8.5); Neutrophils Absolute Auto 8.7 K/mm3 (1.3-6.7); Neutrophils Percent Auto 74.8 % (45.5-73.1); Platelet Count Result 301 k/mm3 (150-375); Red Blood Count 2.73 M/mm3 (4.2-5.4); Red Cell Distribution Width 17.3 % (11.5-14.5); White Blood Count 11.6 K/mm3 (4.5-10.0)
[2021-05-01 04:11] LABS: INR 2.2; Prothrombin Time 25.1 Seconds (11.1-14.7)
[2021-05-01 04:12] LABS: Partial Thromboplastin Time 66.8 SECONDS (22.3-36.8)
[2021-05-01 04:16] LABS: Albumin Level 1.8 g/dL (3.5-5.1); Anion Gap 4 mmol/L (8-16); Blood Urea Nitrogen 22 mg/dL (7-17); Calcium 7.7 mg/dL (8.4-10.2); Carbon Dioxide 16 mmol/L (22-30); Chloride 118 mmol/L (98-107); Estimated CRCL calculation 28 ml/min; Estimated Glomerular Filt Rate 48; Glucose 144 mg/dL (65-105); Phosphorus 3.2 mg/dL (2.5-4.5); Potassium 3.7 mmol/L (3.4-5.0); Sodium 138 mmol/L (137-145)
[2021-05-01 04:18] LABS: Lactic Acid Reflex 1.4 mmol/L (0.7-2.1)
[2021-05-01] MEDS: HEPARIN SODIUM 5,000 UNITS/ML VIAL 2000 UNITS IV PUSH (04:20)
[2021-05-01 04:24] LABS: Immunoglobulin A 406 mg/dL (70-400); Immunoglobulin G 1488 mg/dL (700-1600); Immunoglobulin M 47 mg/dL (40-230); Rheumatoid Factor < 8.6 IU/ML (<12)
[2021-05-01] MEDS: oxyCODONE HCL (*CRX) 5 MG TAB IR PO ×2 (04:25→19:50)
[2021-05-01 05:40] VITALS: BP 122/52; PULSE 69; RESP 18; TEMP 36.9; O2SAT 100
[2021-05-01] MEDS: SALINE LOCK FLUSH 10 ML IV PUSH ×3 (05:58→19:52)
[2021-05-01 08:22] LABS: Glucose Point of Care 122 mg/dl (65-105)
[2021-05-01] MEDS: GABAPENTIN 300 MG CAPSULE PO ×3 (09:26→17:33)
[2021-05-01] MEDS: FUROSEMIDE 20 MG TABLET PO (09:26)
[2021-05-01] MEDS: SODIUM BICARBONATE TAB 650 MG TABLET PO ×2 (09:26→17:34)
[2021-05-01 09:27] VITALS: PULSE 72
[2021-05-01] MEDS: METOPROLOL SUCCINATE EXT REL 50 MG TABCR PO (09:27)
[2021-05-01] MEDS: PSYLLIUM POWDER PACKET 1 PACKET PO (09:28)
[2021-05-01] MEDS: polyethylene glycoL 3350 17 GM POWD.PACK PO (09:28)
[2021-05-01] MEDS: SENNOSIDES 8.6 MG TABLET PO ×2 (09:29→17:34)
[2021-05-01] MEDS: SILVERGEL (ELTA) 45 ML 1 APPLIC TOPICAL (09:29)
[2021-05-01] MEDS: CALCIUM CARBONATE (OSCAL) 500 MG TABLET PO ×2 (09:29→17:33)
[2021-05-01 11:11] LABS: Partial Thromboplastin Time > 200.0 SECONDS (22.3-36.8)
[2021-05-01] MEDS: PANTOPRAZOLE 40 MG TABLET PO ×2 (11:54→17:34)
[2021-05-01 12:17] LABS: Glucose Point of Care 135 mg/dl (65-105)
--- NOTE | 2021-05-01 13:08 | PCPTNOTE ---
attempted therapy this pm, but pt refused due to tired and unable to stay awake for evaluation. Will attempt on 05/02.
[2021-05-01] MEDS: ERTAPENEM SODIUM 0.5 GM in SODIUM CHLORIDE 0.9% IV 50 ML IVPB (13:36)
[2021-05-01 14:00] VITALS: BP 134/58; PULSE 80; RESP 12; TEMP 35.8; O2SAT 100
--- NOTE | 2021-05-01 15:28 | PM.IMPN ---
Progress Note: A&P Assessment and Plan (1) Acute UTI: Code(s): N39.0 - Urinary tract infection, site not specified Status: Acute Assessment and Plan: UA noted. UCx growing 50-100K ESBL Klebsiella and 100K Enterococcus (VRE). Patient has likely UTI. Found to have a UTI seen by ID needs Ertapenem through 05/06 . (2) Supratherapeutic INR: Code(s): R79.1 - Abnormal coagulation profile Status: Acute Assessment and Plan: Continue daily INR. (3) Acute kidney injury: Code(s): N17.9 - Acute kidney failure, unspecified Status: Resolved Assessment and Plan: Cr 1.1 (4) Metabolic acidosis: Code(s): E87.2 - Acidosis Status: Acute Assessment and Plan: Improving (5) Diabetes: Code(s): E11.9 - Type 2 diabetes mellitus without complications Status: Acute Assessment and Plan: Continue AccuCheks covering with sliding scale. Hypoglycemia protocol available as needed. (6) History of atrial fibrillation: Code(s): Z86.79 - Personal history of other diseases of the circulatory system Status: Acute Assessment and Plan: Regular on exam. Probably paced rhythm. Continue Metoprolol. INR as mentioned above. (7) Rectal pain: Code(s): K62.89 - Other specified diseases of anus and rectum Status: Resolved (8) Dementia: Code(s): F03.90 - Unspecified dementia without behavioral disturbance Status: Acute Assessment and Plan: Patient has dementia but more oriented overall. Dementia probably vascular in nature. Continue Remeron (9) Decubitus ulcer, heel: Code(s): L89.609 - Pressure ulcer of unspecified heel, unspecified stage Status: Acute Assessment and Plan: Noted and present on admission. Continue current wound care. (10) Femur fracture, right: Code(s): S72.91XA - Unspecified fracture of right femur, initial encounter for closed fracture Status: Acute Assessment and Plan: Patient here to the ED on 03/07/21 for a fall at the NH. X-ray showing right femur oblique displaced, angulated midshaft fracture with overriding of fracture fragments. Plan was for non-surgical treatment. (11) Anemia: Code(s): D64.9 - Anemia, unspecified Status: Acute Assessment and Plan: Hgb 8.3 (12) H/O prosthetic heart valve: Code(s): Z95.2 - Presence of prosthetic heart valve Status: Acute Assessment and Plan: Hx of heart valve replacement. Patient more awake and alert and states she has 2 mechanical valves. continue to monitor inr. (13) Chronic diastolic heart failure: Code(s): I50.32 - Chronic diastolic (congestive) heart failure Status: Inactive Assessment and Plan: rpt cxr tunde am Additional Plan Patient has chronic pressure wound of the right foot, wound to the right toes, and decubitus to the buttocks. Wound care consult. Subjective Date/time seen: 05/01/21 15:28 Interval history: 80yo female with dementia, AFib on extermination inspector anticoagulation and CKD here for abnormal lab work with elevated Cr and INR. Found to have a UTI seen by ID needs Ertapenem through 05/06 . Review of Systems Review of Systems: ROS unobtainable: Yes unobtainable due to medical condition (Dementia) Exam Narrative: Exam Narrative: Tired appearing chronically ill Chest - lungs clear to auscultation CV - RRR S1/S2 Abd - Soft, NT/ND, Positive BS Ext - Left AKA. Neuro - Alert and appropriate Psych - Depressed appearance Objective Data Vital Signs Vital Signs: Vital Signs - 24 hr 04/30/21 22:00 05/01/21 05:40 05/01/21 09:27 Temperature 36.7 C 36.9 C Pulse Rate 71 69 72 Respiratory Rate 18 18 Blood Pressure 135/66 122/52 L Pulse Oximetry 100 100 05/01/21 14:00 Temperature 35.8 C L Pulse Rate 80 Respiratory Rate 12 Blood Pressure 134/58 L Pulse Ox
[2021-05-01 17:32] LABS: Glucose Point of Care 109 mg/dl (65-105)
[2021-05-01] MEDS: ACETAMINOPHEN 325 MG TABLET 650 MG PO (17:33)
[2021-05-01] MEDS: WARFARIN (*PBKC) 3 MG TABLET PO (17:34)
[2021-05-01] MEDS: MIRTAZAPINE 15 MG TABLET PO (19:52)
[2021-05-01] MEDS: HEPARIN SOD/D5W 100 UNITS/ML 25,000 UNITS/250 ML BAG IV CONT (19:55)
[2021-05-01 20:11] LABS: Partial Thromboplastin Time 73.4 SECONDS (22.3-36.8)
[2021-05-01 21:33] VITALS: BP 125/48; PULSE 76; RESP 18; TEMP 36.9; O2SAT 100
[2021-05-01 21:37] LABS: Glucose Point of Care 210 mg/dl (65-105)
[2021-05-01 21:58] VITALS: O2SAT 99
[2021-05-02 02:29] LABS: INR 2.7; Prothrombin Time 28.8 Seconds (11.1-14.7)
[2021-05-02 02:31] LABS: Partial Thromboplastin Time 85.3 SECONDS (22.3-36.8)
[2021-05-02] MEDS: SALINE LOCK FLUSH 10 ML IV PUSH ×3 (05:19→20:36)
[2021-05-02 05:50] VITALS: BP 114/45; PULSE 73; RESP 18; TEMP 36.4; O2SAT 96
[2021-05-02 08:47] LABS: Glucose Point of Care 191 mg/dl (65-105)
[2021-05-02] MEDS: SILVERGEL (ELTA) 45 ML 1 APPLIC TOPICAL (09:11)
--- NOTE | 2021-05-02 11:32 | PCPTNOTE ---
attempted therapy x 2 this day, pt refused to participate, requested to be left alone and did not want therapy.
[2021-05-02] MEDS: ERTAPENEM SODIUM 0.5 GM in SODIUM CHLORIDE 0.9% IV 50 ML IVPB (12:10)
[2021-05-02 12:16] LABS: Glucose Point of Care 87 mg/dl (65-105)
[2021-05-02 14:00] VITALS: BP 147/69; PULSE 77; RESP 16; TEMP 36.4; O2SAT 100
--- NOTE | 2021-05-02 14:00 | PCOTNOTE ---
Attempted to see patient this date, however patient refused. Pt sleeping upon entering. Attempted to arouse. Pt nodded head to bathing and grooming tasks, however upon initiating washing face patient refused. Pt kept eyes closed and would not participate despite verbal and tactile encouragement.
[2021-05-02] MEDS: oxyCODONE HCL (*CRX) 5 MG TAB IR PO (14:03)
--- NOTE | 2021-05-02 15:59 | PM.IMPN ---
Progress Note: A&P Assessment and Plan (1) Acute UTI: Code(s): N39.0 - Urinary tract infection, site not specified Status: Acute Assessment and Plan: UCx growing 50-100K ESBL Klebsiella and 100K Enterococcus (VRE). Patient has likely UTI. Found to have a UTI seen by ID needs Ertapenem through 05/06 . (2) Supratherapeutic INR: Code(s): R79.1 - Abnormal coagulation profile Status: Resolved Assessment and Plan: Continue daily INR. DC heparin. (3) Acute kidney injury: Code(s): N17.9 - Acute kidney failure, unspecified Status: Resolved Assessment and Plan: Cr 1.1 (4) Metabolic acidosis: Code(s): E87.2 - Acidosis Status: Acute Assessment and Plan: Improving (5) Diabetes: Code(s): E11.9 - Type 2 diabetes mellitus without complications Status: Acute Assessment and Plan: Continue AccuCheks covering with sliding scale. Continue to monitor. (6) History of atrial fibrillation: Code(s): Z86.79 - Personal history of other diseases of the circulatory system Status: Acute Assessment and Plan: Regular on exam. Probably paced rhythm. Continue Metoprolol. INR is 2.7 today. (7) Rectal pain: Code(s): K62.89 - Other specified diseases of anus and rectum Status: Resolved (8) Dementia: Code(s): F03.90 - Unspecified dementia without behavioral disturbance Status: Acute Assessment and Plan: Patient has dementia but more oriented overall. Dementia probably vascular in nature. Continue Remeron (9) Decubitus ulcer, heel: Code(s): L89.609 - Pressure ulcer of unspecified heel, unspecified stage Status: Acute Assessment and Plan: Noted and present on admission. Continue current wound care. (10) Femur fracture, right: Code(s): S72.91XA - Unspecified fracture of right femur, initial encounter for closed fracture Status: Acute Assessment and Plan: Patient here to the ED on 03/07/21 for a fall at the NH. X-ray showing right femur oblique displaced, angulated midshaft fracture with overriding of fracture fragments. Plan was for non-surgical treatment. (11) Anemia: Code(s): D64.9 - Anemia, unspecified Status: Acute Assessment and Plan: Hgb 8.3 (12) H/O prosthetic heart valve: Code(s): Z95.2 - Presence of prosthetic heart valve Status: Acute Assessment and Plan: Hx of heart valve replacement. Patient more awake and alert and states she has 2 mechanical valves. continue to monitor inr. (13) Chronic diastolic heart failure: Code(s): I50.32 - Chronic diastolic (congestive) heart failure Status: Inactive Assessment and Plan: lungs clear CXR not ordered Subjective Date/time seen: 05/02/21 15:59 Interval history: 80yo female with dementia, AFib on intermediate manager anticoagulation and CKD here for abnormal lab work with elevated Cr and INR. INR therapeutic today Found to have a UTI seen by ID needs Ertapenem through 05/06 . Pt refusing to eat much refusing oral medications this morning Review of Systems Review of Systems: All systems reviewed & are unremarkable except as noted in HPI and below Exam Narrative: Exam Narrative: Tired appearing chronically ill Chest - lungs clear to auscultation CV - RRR S1/S2 Abd - Soft, NT/ND, Positive BS Ext - Left AKA. Neuro - Alert and appropriate Psych - Depressed appearance Objective Data Vital Signs Vital Signs: Vital Signs - 24 hr 05/01/21 21:33 05/01/21 21:58 05/02/21 05:50 Temperature 36.9 C 36.4 C Pulse Rate 76 73 Respiratory Rate 18 18 Blood Pressure 125/48 L 114/45 L Pulse Oximetry 100 99 96 05/02/21 14:00 Temperature 36.4 C L Pulse Rate 77 Respiratory Rate 16 Blood Pressure 147/69 H Pulse Oximetry 100 Intake/Output Intake/Output: Intake & Output 06
[2021-05-02] MEDS: WARFARIN (*PBKC) 3 MG TABLET PO (17:25)
[2021-05-02 18:21] LABS: Glucose Point of Care 153 mg/dl (65-105)
[2021-05-02] MEDS: MIRTAZAPINE 15 MG TABLET PO (20:36)
[2021-05-02 20:50] LABS: Albumin 1.7 g/dL (3.8-4.8); Alpha 1 Globulin 0.4 g/dL (0.2-0.3); Alpha 2 Globulin 0.5 g/dL (0.5-0.9); Beta 1 Globulin 0.2 g/dL (0.4-0.6); Gamma Globulin 1.4 g/dL (0.8-1.7); Protein, Total 4.6 g/dL (6.1-8.1)
[2021-05-02 22:00] VITALS: BP 123/47; PULSE 69; RESP 18; TEMP 36.2; O2SAT 100
[2021-05-03 01:48] LABS: Glucose Point of Care 90 mg/dl (65-105)
[2021-05-03 06:00] VITALS: BP 123/50; PULSE 70; RESP 18; TEMP 36.4; O2SAT 99
[2021-05-03] MEDS: SALINE LOCK FLUSH 10 ML IV PUSH ×3 (06:11→20:48)
[2021-05-03 06:31] LABS: Hematocrit 29.6 % (37.0-47.0); Hemoglobin 8.4 g/dL (12.0-15.0); Mean Corpuscular HGB Conc 28.4 g/dl (32-36); Mean Corpuscular Volume 105.7 fl (80-100); Mean Platelet Volume 9.9 fl (7.4-10.4); Platelet Count Result 249 k/mm3 (150-375); Red Cell Distribution Width 17.2 % (11.5-14.5); White Blood Count 10.8 K/mm3 (4.5-10.0)
[2021-05-03 06:38] LABS: Anion Gap 5 mmol/L (8-16); Blood Urea Nitrogen 19 mg/dL (7-17); Calcium 7.5 mg/dL (8.4-10.2); Carbon Dioxide 16 mmol/L (22-30); Chloride 117 mmol/L (98-107); Estimated CRCL calculation 30 ml/min; Estimated Glomerular Filt Rate 53; Glucose 113 mg/dL (65-105); Potassium 3.6 mmol/L (3.4-5.0); Sodium 138 mmol/L (137-145)
[2021-05-03 07:08] LABS: INR 2.9; Prothrombin Time 31.1 Seconds (11.1-14.7)
[2021-05-03 08:03] LABS: Glucose Point of Care 120 mg/dl (65-105)
--- NOTE | 2021-05-03 08:47 | PCPTNOTE ---
Attempted PT eval. Pt refused therapy. States she does not want therapy. Explained importance of therapy .Pt stated I know. Good bye. Will follow.
--- NOTE | 2021-05-03 09:10 | PCSTNOTE ---
Atempted ST; pt adamantly refused stating, I want you to leave me alone ; St will attempt again later this date.
--- NOTE | 2021-05-03 09:12 | PCOTNOTE ---
Attempted to see Patient for treatment session. Patient refused, holding covers over her head, verbalized, NO, leave me alone .
[2021-05-03] MEDS: oxyCODONE HCL (*CRX) 5 MG TAB IR PO ×2 (10:27→18:39)
[2021-05-03] MEDS: SILVERGEL (ELTA) 45 ML 1 APPLIC TOPICAL (10:31)
--- NOTE | 2021-05-03 11:39 | PCOTNOTE ---
Attempted to see again this A.M. Patient refused to participate, verbalized, Just leave me alone, NO .
--- NOTE | 2021-05-03 11:51 | PCNFU ---
Nutrition Follow-Up Complete: Swallowing difficulty related to dysphagia as evidenced by pureed diet order after bedside swallow evaluation. Goal: Patient to meet estimated nutritional needs. Limited progress towards goal. We will continue current goal. Pt current nutrition is Pureed, Level 4 with Ensure compact BID Last recorded weight is 50.4 kg, no new weight to report. Bowel Motility:+BM reported 05/03 Labs Reviewed:BUN 19, GFR 53,Hct 29.6,Hgb 8.4 Meds Noted:Remeron, Roxicodone, Coumadin Additional Notes: Nutrition follow up. Patient is refusing meals, using Remeron for appetite stimulant. Would recommend to continue with current diet order. PO intake encouraged. Patient has been refusing therapies today. Monitor patient's labs, medications, weight, and oral intake every 3 days.
[2021-05-03 12:40] LABS: Glucose Point of Care 100 mg/dl (65-105)
[2021-05-03] MEDS: ERTAPENEM SODIUM 0.5 GM in SODIUM CHLORIDE 0.9% IV 50 ML IVPB (13:15)
[2021-05-03 14:00] VITALS: BP 142/56; PULSE 71; RESP 16; TEMP 36.8; O2SAT 100
--- NOTE | 2021-05-03 14:08 | PCOTNOTE ---
Attempted for 3 times today for OT treatment session. Patient refusing to participate with any activity at this time. Patient seems more confused this attempt. Patient was taking her gown off, stating, Go away, I've got to get to work , I'm gonna be late . Patient asked me to leave.
[2021-05-03 15:35] VITALS: PULSE 88
[2021-05-03] MEDS: GABAPENTIN 300 MG CAPSULE PO (15:35)
[2021-05-03] MEDS: PANTOPRAZOLE 40 MG TABLET PO (15:35)
[2021-05-03] MEDS: METOPROLOL SUCCINATE EXT REL 50 MG TABCR PO (15:35)
[2021-05-03] MEDS: CALCIUM CARBONATE (OSCAL) 500 MG TABLET PO (15:37)
[2021-05-03] MEDS: SODIUM BICARBONATE TAB 650 MG TABLET PO (15:37)
[2021-05-03] MEDS: SENNOSIDES 8.6 MG TABLET PO (15:40)
[2021-05-03] MEDS: FUROSEMIDE 20 MG TABLET PO (15:42)
--- NOTE | 2021-05-03 15:45 | PC.NURSE ---
Patients daughter is upset because pain medication not given. Becoming verbally abusive towards the nurse. Patient requested her medications she refused today. Patient given medications. Daughter upset because patient is not on scheduled pain medication. Patient refused PT/OT and refused to eat today.
--- NOTE | 2021-05-03 15:50 | PM.IMPN ---
Progress Note: A&P Assessment and Plan (1) Acute UTI: Code(s): N39.0 - Urinary tract infection, site not specified Status: Acute Assessment and Plan: UA noted. UCx growing 50-100K ESBL Klebsiella and 100K Enterococcus (VRE). Patient has likely UTI with pyuria, 3+ LE and bacteriuria in the setting of leukocytosis. Patient was started on empiric antibiotic therapy with Rocephin. WBC improved and her mentation improved but Rocephin not appropriate coverage. Ertapenem started. ID consulted and appreciate their input. Plans for Ertapenem through 05/06 . (2) Supratherapeutic INR: Code(s): R79.1 - Abnormal coagulation profile Status: Resolved Assessment and Plan: Patient has supratherapeutic INR at 6.9 due to Coumadin. No active bleeding noted. Hgb 10.3. Coumadin held. The patient received 1 dose of oral vitamin K in the ER. INR dropped to 2.6 and Coumadin resumed. On Heparin drip briefly since INR dropped to 1.8 and she has a mechanical valve. INR therapeutic now. (3) Acute kidney injury: Code(s): N17.9 - Acute kidney failure, unspecified Status: Resolved Assessment and Plan: Cr 2.1 on admission. Patient has a history of chronic kidney disease but creatinine was worse than baseline. Baseline Cr 1.3 range in March. Renal US showing bilateral mild increased renal cortical echogenicity consistent with medical renal disease but no hydronephrosis. Treated with IV fluid hydration and repeat Cr 1.0 now. Follow. (4) Metabolic acidosis: Code(s): E87.2 - Acidosis Status: Acute Assessment and Plan: Patient noted to have serum bicarb 15-21 at the [facility]. She has worsening nongap metabolic acidosis here. Serum bicarb better at 16 now. Urine pH 5. Potassium okay. 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 Continue bicarb. (5) Diabetes: Code(s): E11.9 - Type 2 diabetes mellitus without complications Status: Acute Assessment and Plan: The patient's blood glucose was reviewed on 05/03 Glucose remains well controlled. Continue AccuCheks covering with sliding scale. Hypoglycemia protocol available as needed. (6) History of atrial fibrillation: Code(s): Z86.79 - Personal history of other diseases of the circulatory system Status: Acute Assessment and Plan: Regular on exam. Probably paced rhythm. Continue Metoprolol. INR therapeutic (7) Rectal pain: Code(s): K62.89 - Other specified diseases of anus and rectum Status: Resolved Assessment and Plan: Patient with intermittent rectal pain. No complaints of constipation; no blood. Obstructive series showing moderately prominent of fecal material in the colon. Miralax increased and patietn with good stool output. No complaints of rectal pain here. Continue to monitor (8) Dementia: Code(s): F03.90 - Unspecified dementia without behavioral disturbance Status: Acute Assessment and Plan: Patient has underlying dementia but more oriented overall. Dementia probably vascular in nature. Continue Remeron (9) Decubitus ulcer, heel: Code(s): L89.609 - Pressure ulcer of unspecified heel, unspecified stage Status: Acute Assessment and Plan: Noted and present on admission. Continue current wound care. (10) Femur fracture, right: Code(s): S72.91XA - Unspecified fracture of right femur, initial encounter for closed fracture Status: Acute Assessment and Plan: Patient here to the ED on 03/07/21 for a fall at the [facility]. X-ray showing right femur oblique displaced, angulated midshaft fracture with overriding of fracture fragments. Plan was for non-surgical treatment. will try to have patient up to the chair as tolerated. (11) Anemia: Code(s): D64.9 - Anemia, unspecified Status: Acute Assessment and Plan: Hgb 10.3 on admission but dropped
[2021-05-03 16:03] VITALS: BP 137/55; PULSE 71; RESP 16; TEMP 36.4; O2SAT 100
[2021-05-03] MEDS: ACETAMINOPHEN 325 MG TABLET 650 MG PO (16:33)
[2021-05-03] MEDS: WARFARIN (*PBKC) 3 MG TABLET PO (16:33)
[2021-05-03 17:54] LABS: Glucose Point of Care 108 mg/dl (65-105)
[2021-05-03 17:55] LABS: Glucose Point of Care 108 mg/dl (65-105)
[2021-05-03 21:27] LABS: Glucose Point of Care 193 mg/dl (65-105)
[2021-05-03 22:00] VITALS: BP 121/45; PULSE 70; RESP 18; TEMP 37.4; O2SAT 100
[2021-05-04 06:00] VITALS: BP 125/46; PULSE 75; RESP 18; TEMP 36.8; O2SAT 100
[2021-05-04 06:38] LABS: INR 3.2
[2021-05-04 06:41] LABS: Basophils Absolute Auto 0.1 K/mm3 (0.0-0.1); Basophils Percent Auto 0.5 % (0.2-1.2); Eosinophils Absolute Auto 0.4 K/mm3 (0-0.3); Eosinophils Percent Auto 3.8 % (0-4.4); Hematocrit 27.7 % (37.0-47.0); Hemoglobin 8.8 g/dL (12.0-15.0); Immature Granulocyte Absolute 0.06 K/mm3 (0.00-0.031); Immature Granulocyte Percent A 0.5 % (0-0.5); Lymphocytes Absolute Auto 1.57 K/mm3 (0.9-3.2); Lymphocytes Percent Auto 13.6 % (18.3-44.2); Mean Corpuscular HGB Conc 31.8 g/dl (32-36); Mean Corpuscular Volume 94.5 fl (80-100); Mean Platelet Volume 9.9 fl (7.4-10.4); Monocytes Absolute Auto 0.9 K/mm3 (0.1-0.6); Monocytes Percent Auto 7.4 % (2.6-8.5); Neutrophils Absolute Auto 8.6 K/mm3 (1.3-6.7); Neutrophils Percent Auto 74.2 % (45.5-73.1); Platelet Count Result 303 k/mm3 (150-375); Red Blood Count 2.93 M/mm3 (4.2-5.4); Red Cell Distribution Width 16.6 % (11.5-14.5); White Blood Count 11.6 K/mm3 (4.5-10.0)
[2021-05-04 06:45] LABS: Anion Gap 4 mmol/L (8-16); Blood Urea Nitrogen 17 mg/dL (7-17); Calcium 7.6 mg/dL (8.4-10.2); Carbon Dioxide 20 mmol/L (22-30); Chloride 115 mmol/L (98-107); Estimated CRCL calculation 30 ml/min; Estimated Glomerular Filt Rate 53; Glucose 107 mg/dL (65-105); Magnesium 1.3 mg/dL (1.6-2.3); Phosphorus 3.8 mg/dL (2.5-4.5); Potassium 3.5 mmol/L (3.4-5.0); Sodium 139 mmol/L (137-145)
--- NOTE | 2021-05-04 08:30 | PCOTNOTE ---
Attempted to see Patient for OT treatment session this A.M. Patient refused to participate, verbalized, leave me alone, quit waking me up, I'm sleeping .
--- NOTE | 2021-05-04 08:43 | PCPTNOTE ---
Attempted PT eval. Pt refused therapy.
[2021-05-04] MEDS: MAGNESIUM SULF 2 GM/WATER 50ML 2 GM/50 ML BAG IVPB (09:09)
[2021-05-04] MEDS: SILVERGEL (ELTA) 45 ML 1 APPLIC TOPICAL (09:15)
[2021-05-04] MEDS: CALCIUM CARBONATE (OSCAL) 500 MG TABLET PO (09:16)
[2021-05-04] MEDS: PANTOPRAZOLE 40 MG TABLET PO (09:16)
[2021-05-04] MEDS: SENNOSIDES 8.6 MG TABLET PO (09:16)
[2021-05-04] MEDS: GABAPENTIN 300 MG CAPSULE PO ×2 (09:16→11:59)
[2021-05-04 09:17] VITALS: PULSE 78
[2021-05-04] MEDS: SODIUM BICARBONATE TAB 650 MG TABLET PO (09:17)
[2021-05-04] MEDS: FUROSEMIDE 20 MG TABLET PO (09:17)
[2021-05-04] MEDS: METOPROLOL SUCCINATE EXT REL 50 MG TABCR PO (09:17)
--- NOTE | 2021-05-04 10:21 | PCSTNOTE ---
Pt refused ST this am -- due to refusing recommend ST discharge.
--- NOTE | 2021-05-04 11:32 | PM.DS ---
DS: Admitting Diagnosis Admitting Diagnosis Admitting Diagnosis: Abnormal labs DS: Discharge Diagnosis Discharge Diagnosis (1) Acute UTI: Code(s): N39.0 - Urinary tract infection, site not specified Status: Acute Assessment and Plan: UA concerning for UTI. UCx growing 50-100K ESBL Klebsiella and 100K Enterococcus (VRE). Patient has likely UTI with pyuria, 3+ LE and bacteriuria in the setting of leukocytosis. Patient was started on empiric antibiotic therapy with Rocephin. WBC improved and her mentation improved but Rocephin not appropriate coverage. Abx changed to Ertapenem. ID consulted and recommended Ertapenem through 05/06 . It was felt the VRE was contaminate. (2) Supratherapeutic INR: Code(s): R79.1 - Abnormal coagulation profile Status: Resolved Assessment and Plan: Patient has supratherapeutic INR at 6.9 due to Coumadin and poor oral intake. No active bleeding noted. Hgb 10.3. Coumadin held. The patient received 1 dose of oral vitamin K in the ER. INR dropped to 2.6 and Coumadin resumed. On Heparin drip briefly since INR dropped to 1.8 and she has a mechanical valve. INR therapeutic now. (3) Acute kidney injury: Code(s): N17.9 - Acute kidney failure, unspecified Status: Resolved Assessment and Plan: Cr 2.1 on admission. Patient has a history of chronic kidney disease but creatinine was worse than baseline. Baseline Cr 1.3 range in March. Renal US showing bilateral mild increased renal cortical echogenicity consistent with medical renal disease but no hydronephrosis. Treated with IV fluid hydration and repeat Cr 1.0 now. Her mental status improved with the IV fluids. (4) Metabolic acidosis: Code(s): E87.2 - Acidosis Status: Acute Assessment and Plan: Patient noted to have serum bicarb 15-21 at the [facility]. She has worsening nongap metabolic acidosis here. Urine pH 5. Potassium okay. 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 Oral bicarb started and serum bicarb 20 now. (5) Diabetes: Code(s): E11.9 - Type 2 diabetes mellitus without complications Status: Acute Assessment and Plan: The patient's blood glucose was monitored closely with AccuCheks covering with sliding scale. Hypoglycemia protocol was available as needed. Glucose remained well controlled. (6) History of atrial fibrillation: Code(s): Z86.79 - Personal history of other diseases of the circulatory system Status: Acute Assessment and Plan: Heart rate remained stable. We continued Metoprolol. INR therapeutic (7) Rectal pain: Code(s): K62.89 - Other specified diseases of anus and rectum Status: Resolved Assessment and Plan: Patient with intermittent rectal pain. No complaints of constipation; no blood. Obstructive series showing moderately prominent of fecal material in the colon. Miralax increased and patient with good stool output. No complaints of rectal pain here. (8) Dementia: Code(s): F03.90 - Unspecified dementia without behavioral disturbance Status: Acute Assessment and Plan: Patient has underlying dementia but more oriented overall. Dementia probably vascular in nature. We continued her Remeron (9) Decubitus ulcer, heel: Code(s): L89.609 - Pressure ulcer of unspecified heel, unspecified stage Status: Acute Assessment and Plan: Noted and present on admission. We continued current wound care. Wound showing signs of improvement (10) Femur fracture, right: Code(s): S72.91XA - Unspecified fracture of right femur, initial encounter for closed fracture Status: Acute Assessment and Plan: Patient here to the ED on 03/07/21 [facility] a [facility]. X-ray showing right femur oblique displaced, angulated midshaft fracture with overriding of fracture fragments. Plan was for non-surgical treatment.
[2021-05-04] MEDS: ERTAPENEM SODIUM 0.5 GM in SODIUM CHLORIDE 0.9% IV 50 ML IVPB (11:58)
[2021-05-04 12:03] LABS: Glucose Point of Care 80 mg/dl (65-105)
[2021-05-04] MEDS: SALINE LOCK FLUSH 10 ML IV PUSH (13:00)
[2021-05-05 12:31] LABS: Anti Glomerular Basement Memb <1.0 AI (<1.0)
[2021-05-06 23:32] LABS: ANCA Screen Negative (Negative)
--- NOTE | 2021-05-11 10:15 | PC.NURSE ---
ANTI GBM is negative. ANCA is WNL. Dr. Linton aware.
== END 2021-05-04 15:23 | DRG 689 ==
LOC: ANHED 04-28 00:56 → ANH3MEDSUR 04-28 05:59
PROVIDERS: Family Medicine; Admitting Provider Internal Medicine; Emergency Provider Emergency Medicine; PCP Family Medicine; Visit Provider Internal Medicine
DX: N39.0 Urinary tract infection, site not specified (principal); S72.331A Displaced oblique fracture of shaft of right femur, initial encounter for closed fracture; I13.0 Hypertensive heart and chronic kidney disease with heart failure and stage 1 through stage 4 chronic kidney disease, or unspecified chronic kidney disease; N18.4 Chronic kidney disease, stage 4 (severe); I50.32 Chronic diastolic (congestive) heart failure; N17.9 Acute kidney failure, unspecified; E87.2 Acidosis; Z16.12 Extended spectrum beta lactamase (ESBL) resistance; Z16.21 Resistance to vancomycin; B96.1 Klebsiella pneumoniae [K. pneumoniae] as the cause of diseases classified elsewhere; B95.2 Enterococcus as the cause of diseases classified elsewhere; Z91.81 History of falling; F01.50 Vascular dementia, unspecified severity, without behavioral disturbance, psychotic disturbance, mood disturbance, and anxiety; I48.91 Unspecified atrial fibrillation; E11.40 Type 2 diabetes mellitus with diabetic neuropathy, unspecified; E11.22 Type 2 diabetes mellitus with diabetic chronic kidney disease; J44.9 Chronic obstructive pulmonary disease, unspecified; K21.9 Gastro-esophageal reflux disease without esophagitis; G47.33 Obstructive sleep apnea (adult) (pediatric); R79.1 Abnormal coagulation profile; L89.610 Pressure ulcer of right heel, unstageable; L89.309 Pressure ulcer of unspecified buttock, unspecified stage; K62.89 Other specified diseases of anus and rectum; D64.9 Anemia, unspecified; E86.0 Dehydration; R93.89 Abnormal findings on diagnostic imaging of other specified body structures; R41.82 Altered mental status, unspecified; Z79.01 Long term (current) use of anticoagulants; Z79.4 Long term (current) use of insulin; Z79.899 Other long term (current) drug therapy; Z88.0 Allergy status to penicillin; Z88.1 Allergy status to other antibiotic agents; Z89.612 Acquired absence of left leg above knee; Z95.0 Presence of cardiac pacemaker
CPT/HCPCS: 36415; 51701; 71045; 74019; 76775; 80048; 80053; 80069; 81001; 82088; 82607; 82728; 82746; 82784; 82948; 83036; 83520; 83540; 83550; 83605; 83735; 84155; 84165; 84244; 85025; 85027; 85610; 85730; 86021; 86038; 86140; 86160; 86430; 87077; 87086; 87088; 87186; 92526; 92610; 96361; 96374; 97165; 99285; A9270; J0696; J1335; J1644; J3475; J7030

== ENCOUNTER 2021-10-09 01:57 | Inpatient (IN) | payer MEDICARE, OTHER, MEDICAID, SELFPAY ==
[2021-10-09] VITALS (15 sets, daily range): BP systolic 92–151; BP diastolic 44–79; PULSE 69–88; RESP 13–18; TEMP 36.4–38.4; O2SAT 95–100; BMI 24.7
--- NOTE | 2021-10-09 | ECHO_ITS ---
Patient Info Name: Nadege Bryan Age: 81 years : 1940 Gender: Female Ht: 63 in Wt: 139 lbs BSA: 1.68 m2 HR: 70 bpm BP: 105 / 52 mmHg Technical Quality: Poor Exam Date: 10/09/2021 9:11 AM Exam Location: [facility] Pulmonary Patient Status: Inpatient Admit Date: 10/09/2021 Staff Ordering Physician: Miranda Castro MD Lap Welder: Razia Bone RDCS Attending Provider: Miranda Castro MD Referring Physician: Matthew BAKER; Exam Type: CA echo dop color flow w con Study Info Indications - resp failure Complete two-dimensional, color flow and Doppler transthoracic echocardiogram is performed with contrast to opacify the left ventricle and to improve the deliniation of the left ventricle endocardial borders. Contrast/Agitated Saline Contrast/Ag. Saline: Definity Amount: 4.00 ml Summary 1. Left ventricular systolic function is normal, estimated at 65-70%. 2. There is mildly increased left ventricular wall thickness. 3. Linear artifact in right ventricle suggestive of catheter(s), pacemaker lead(s), or ICD lead(s). 4. Linear artifact in the right atrium suggestive of catheter(s), pacemaker lead(s), or ICD lead(s). 5. The mechanical mitral valve is structurally and functionally normal by two-dimensional, color flow Doppler and Doppler interrogation. 6. Mean gradient across the mechanical mitral valve is 6 mmHg. 7. Aortic valve is not well visualized. Left Ventricle Left ventricular chamber dimension is normal. Left ventricular systolic function is normal, estimated at 65-70%. There is mildly increased left ventricular wall thickness. Left ventricular septal wall motion is normal. The left ventricular diastolic function is indeterminate. Right Ventricle Right ventricular chamber dimension is normal. Right ventricular systolic function is normal. Linear artifact in right ventricle suggestive of catheter(s), pacemaker lead(s), or ICD lead(s). Left Atria Left atrial chamber dimension is moderately enlarged. Right Atria Right atrial chamber dimension is mildly enlarged. Linear artifact in the right atrium suggestive of catheter(s), pacemaker lead(s), or ICD lead(s). Aortic Valve Aortic valve is not well visualized. There is no aortic valve sclerosis. There is no aortic valve stenosis. There is no aortic valve regurgitation. Pulmonic Valve The pulmonic valve is normal. There is no pulmonic valve stenosis. There is mild pulmonic regurgitation. Mitral Valve The mechanical mitral valve is structurally and functionally normal by two-dimensional, color flow Doppler and Doppler interrogation. Mean gradient across the mechanical mitral valve is 6 mmHg. There is no mitral valve regurgitation. Tricuspid Valve The tricuspid valve leaflets are normal. There is no significant tricuspid valve stenosis. There is mild tricuspid valve regurgitation. Mild pulmonary hypertension, estimated pulmonary arterial systolic pressure is 35 mmHg. Pericardium/Pleural The pericardium appears normal. There is no pericardial effusion. Inferior Vena Cava Normal inferior vena cava with >50% collapse upon inspiration consistent with normal right atrial pressure, 3 mmHg. Aorta The aortic root size at the sinus of Valsalva is normal. The prox ascending aorta size is normal. Left Ventricular Outflow Tract Name
--- NOTE | ~2021-10-09 | XR_ITS ---
EXAMINATION: XR chest 1V portable DATE: 10/13/2021 06:24 INDICATION: Shortness of breath and pneumonia TECHNIQUE: frontal view of the chest was obtained. COMPARISON: Chest radiograph dated 10/09/2021 FINDINGS: Interstitial and airspace opacities in the bilateral mid and lower lung zones. Small right pleural ef fusion. No pneumothorax. Cardiomegaly. Median sternotomy wires and mediastinal surgical clips are see n, likely from prior coronary artery bypass grafting. There has also been prior cardiac valve repair. IMPRESSION: 1. No significant change attending for differences in technique in opacities in the bilateral mid and lower lung zones which could represent pulmonary edema and/or pneumonia. 2. New small right pleural effusion. 3. Cardiomegaly. Reviewed, dictated and finalized at location A. K PROCESSOR IMPRESSION: 1. No significant change attending for differences in technique in opacities in the bilateral mid and lower lung zones which could represent pulmonary edema a nd/or pneumonia. 2. New small right pleural effusion. 3. Cardiomegaly.
--- NOTE | ~2021-10-09 | XR_ITS ---
EXAMINATION: XR chest 1V portable INDICATION: Hypoxia TECHNIQUE: Portable AP chest at 0319 hours COMPARISON: 04/30/2021 FINDINGS: There are airspace opacities of the mid and lower lung zones. No pleural effusion or pneumo thorax is identified. Cardiomegaly is noted. There are changes of cardiac valve surgery. A dual-lead cardiac pacemaker of the left chest wall ends with leads in expected locations. Surgical clips in the right upper quadrant are likely from prior cholecystectomy. IMPRESSION: 1. Airspace opacities of the mid and lower lung zones, consistent with atelectasis versus pneumonia. Reviewed, dictated and finalized at location A. DEFENCE OFFICER IMPRESSION: 1. Airspace opacities of the mid and lower lung zones, consistent with atelecta sis versus pneumonia.
--- NOTE | 2021-10-09 02:13 | ECG_ITS ---
Measurements Intervals Windfall Rate: 83 P: SD: 0 QRS: -76 QRSD: 181 T: 84 QT: 423 QTc: 498 Interpretive Statements ELECTRONIC VENTRICULAR PACEMAKER WITH INHIBITION BASELINE ARTIFACT- I, II, AVR, AVL, AVF, V1-V3 NO FURTHER INTERPRETATION IS POSSIBLE ATYPICAL ECG Electronically Signed On 10-09-2021 7:17:13 CEREAL MILLER by David Reyes D.O.
[2021-10-09 02:52] LABS: Alveolar/Arterial O2 Gradient 86.4 mmHg; Carboxyhemoglobin 0.8 % THb (0-2.0); Fractional Inspired Oxygen 28 %; HCO3 ABG 27.8 mEq/l (22.0-26.0); Methemoglobin ABG 0.3 %THb (0-1.5); Oxygen Content ABG 15.6 %vol (16.0-22.0); Oxygen Saturation ABG 94.7 % (95.0-100.0); Oxyhemoglobin 92.3 % THb (90.0-100.0); PCO2 ABG 38.5 mmHg (35.0-45.0); PO2 ABG 67.8 mmHg (80.0-100.0); PO2 FiO2 Ratio Arterial Blood 2.42 %; Reduced Hemoglobin 6.6 %THb (0-5.0); pH ABG 7.476 (7.350-7.450)
--- NOTE | 2021-10-09 02:57 | ED.GENADULT ---
HPI - General Adult General Chief complaint: Shortness of Breath/Dyspnea Stated complaint: low o2 sat Time Seen by Provider: 10/09/21 02:01 Source: patient, EMS, RN notes reviewed and old records reviewed Mode of arrival: EMS Limitations: clinical condition History of Present Illness HPI narrative: This is an 81 year old female with histoy of CHF, chronic kidney disease, hypertension, DM who [facility] evaluation of low oxygen saturation. EMS reports patient was found by staff with oxygen saturation of 70 % tonight. She was placed on 4 L NC and her oxygenation improved to the 90s. On arrival to ER, staff states her room air saturation was 86% so she was placed on 2 L NC. Patient reports having a productive cough for 2 -3 weeks. She denies chest pain or shortness of breath. She was found to have low grade fever 100.5 Related Data Home Medications Medication Instructions Recorded Confirmed Movantik 12.5 mg PO QAM 04/28/21 10/09/21 furosemide 20 mg PO BID 04/28/21 10/09/21 gabapentin 300 mg PO TID 04/28/21 10/09/21 insulin lispro See Rx Instructions .ROUTE .COMPLEX 04/28/21 10/09/21 metoprolol succinate 50 mg PO DAILY 04/28/21 10/09/21 mirtazapine 15 mg PO HS 04/28/21 10/09/21 pantoprazole 40 mg PO BID 04/28/21 10/09/21 sennosides 8.6 mg PO BID PRN 04/28/21 10/09/21 warfarin 3 mg PO DAILY 04/29/21 10/09/21 acetaminophen 1,000 mg PO Q8H PRN 10/09/21 10/09/21 albuterol sulfate [ProAir HFA] 1 puff INHALATION Q6H PRN 10/09/21 10/09/21 artificial tears solution 1 drp OPHTHALMIC (EYE) BID 10/09/21 10/09/21 calcium citrate-vitamin D3 2 tablet PO BID 10/09/21 10/09/21 ferrous sulfate 325 mg PO BID 10/09/21 10/09/21 furosemide 10 mg PO BID 10/09/21 10/09/21 inulin [Fiber Gummies] 10 g PO DAILY 10/09/21 10/09/21 ipratropium-albuterol See Rx Instructions .ROUTE 11/27/21 11/27/21 .COMPLEX PRN melatonin 5 mg PO HS PRN 10/09/21 10/09/21 multivitamin with minerals 1 tablet PO DAILY 10/09/21 10/09/21 [Multiple Vitamin-Minerals] nystatin 1 applic TOPICAL BID 10/09/21 10/09/21 oxycodone [OxyContin] 20 mg PO Q12H 10/09/21 10/09/21 polyethylene glycol 3350 17 g PO Q12H 10/09/21 10/09/21 sodium chloride [Deep Sea Nasal] 1 spray INTRANASAL Q2H PRN 10/09/21 10/09/21 wheat dextrin [Benefiber Clear SF 1 packet PO DAILY 10/09/21 10/09/21 (dextrin)] Allergies Allergy/AdvReac Type Severity Reaction Status Date / Time levorphanol AdvReac Itching Verified 10/09/21 06:48 Penicillins AdvReac Itching Verified 10/09/21 06:48 vancomycin AdvReac Itching Verified 10/09/21 06:48 Review of Systems Review of Systems: All systems reviewed & are unremarkable except as noted in HPI and below PMFSH Past Medical History Medical History (Updated 10/09/21 @ 08:56 by Dionna See MD) Aortic valve stenosis Chronic anemia Chronic constipation Chronic diastolic heart failure Chronic kidney disease, stage 4 (severe) COPD (chronic obstructive pulmonary disease) Dementia Depression Diabetes Diabetic neuropathy GERD (gastroesophageal reflux disease) History of atrial fibrillation Hypertension Obstructive sleep apnea Osteoporosis Vitamin D deficiency Surgical History Surgical History H/O prosthetic heart valve History of hip surgery History of left above knee amputation Pacemaker Due to sick sinus syndrome Family History Family History Other Unknown family medical history Social History Social History Social History: Resides at [facility]. Code status: Full code Decision maker: Gay Bryan (daughter) Smoking status: Unknown if ever smoked Alcohol intake: unknown Substance use: unknown Spiritual care concerns: No Exam Const: General: alert and ill appearing Orientation/consciousness: patient judah
[2021-10-09 03:06] LABS: Device NASAL CANNULA; Modified Allen's Test Pass; Site Drawn RIGHT RADIAL
[2021-10-09 03:18] LABS: Basophils Percent Auto 0.2 % (0.2-1.2); Eosinophils Absolute Auto 0.1 K/mm3 (0-0.3); Eosinophils Percent Auto 0.3 % (0-4.4); Hematocrit 36.2 % (37.0-47.0); Hemoglobin 11.3 g/dL (12.0-15.0); Immature Granulocyte Absolute 0.12 K/mm3 (0.00-0.031); Immature Granulocyte Percent A 0.7 % (0-0.5); Lymphocytes Absolute Auto 0.75 K/mm3 (0.9-3.2); Lymphocytes Percent Auto 4.3 % (18.3-44.2); Mean Corpuscular HGB Conc 31.2 g/dl (32-36); Mean Corpuscular Hemoglobin 27.4 pg (26-34); Mean Corpuscular Volume 87.7 fl (80-100); Mean Platelet Volume 9.5 fl (7.4-10.4); Monocytes Absolute Auto 0.7 K/mm3 (0.1-0.6); Monocytes Percent Auto 3.8 % (2.6-8.5); Neutrophils Absolute Auto 15.8 K/mm3 (1.3-6.7); Neutrophils Percent Auto 90.7 % (45.5-73.1); Platelet Count Result 291 k/mm3 (150-375); Red Blood Count 4.13 M/mm3 (4.2-5.4); Red Cell Distribution Width 18.5 % (11.5-14.5); White Blood Count 17.5 K/mm3 (4.5-10.0)
[2021-10-09 03:34] LABS: Lactic Acid Reflex 2.3 mmol/L (0.7-2.1)
[2021-10-09 03:35] LABS: Alanine Aminotransferase 24 U/L (4-35); Albumin Level 3.9 g/dL (3.5-5.1); Alkaline Phosphatase 125 U/L (38-126); Anion Gap 4 mmol/L (8-16); Aspartate Amino Transferase 47 U/L (14-36); Bilirubin,Total 0.5 mg/dL (0.2-1.3); Blood Urea Nitrogen 38 mg/dL (7-17); CRP 7.6 mg/dL (<1.0); Calcium 8.7 mg/dL (8.4-10.2); Carbon Dioxide 33 mmol/L (22-30); Chloride 93 mmol/L (98-107); Estimated Glomerular Filt Rate 39; Glucose 163 mg/dL (65-110); Potassium 4.6 mmol/L (3.4-5.0); Sodium 130 mmol/L (137-145)
[2021-10-09 03:41] LABS: INR 2.8
[2021-10-09 03:45] LABS: Add Urine Microscopic? YES; Appearance Urine Cloudy (Clear); Bilirubin Urine Negative (Negative); Blood Urine Negative (Negative); Color Urine Yellow (Yellow); Glucose Urine UA Negative (Negative); Ketones Urine Negative (Negative); Leukocyte Esterase Ur 3+ LEU/UL (Negative); Nitrate Urine Negative (Negative); Protein Urine 2+ mg/dL (Negative); Specific Grav Ur 1.011 (1.001-1.035); Squamous Epithelial Cell Urine Rare /hpf (Few); Urobilinogen Urine Negative mg/dL (<2.0); WBC Clumps Urine Present /HPF; WBC Urine >75 /hpf
[2021-10-09 04:05] LABS: NT Pro B Type Natriuretic Pept 4630 pg/mL (5-100); Troponin I 0.045 ng/mL (0.000-0.034)
[2021-10-09] MEDS: SODIUM CHLORIDE 0.9% IV 500 ML 999 ML IV CONT (05:23)
[2021-10-09] MEDS: SODIUM CHLORIDE 0.9% IV 500 ML IV CONT (05:43)
--- NOTE | 2021-10-09 05:49 | PM.IMHP ---
H&P: HPI History of Present Illness Date/Time: 10/09/21 05:49 Chief Complaint: Shortness of breath Narrative: This is an 81-year-old female with past medical history significant for recurrent urinary tract infections, congestive heart failure, aortic valve stenosis, chronic anemia, chronic constipation, chronic diastolic heart failure chronic kidney disease stage 4, COPD, dementia, diabetes, diabetic neuropathy, gastroesophageal reflux disease, atrial fibrillation, obstructive sleep apnea, osteoporosis, prosthetic heart valve on chronic anticoagulation with Coumadin, right AKA. Patient was brought to the emergency room after staff raise concerns of her care home where she resides at after having right femur fracture with ORIF and she has been there for rehabilitation patient uses a wheelchair. Staff noticed that her oxygen saturation was low and that she was short of breath most of the history have obtained from the daughter who is at bedside according to the daughter signs given night she was doing fine she had a good dinner and was brought back to the care home and in the morning she was able to speak with her on the phone and she was doing well. Preliminary workup in the emergency room has been significant for chest x-ray with bilateral lung infiltrates, urinalysis significant for numerous also wbc's present, a BNP was elevated above 4,000, troponin 0.045, WBC 17,000, creatinine 1.3 BUN 38 sodium 130. Patient has been admitted for further evaluation management and treatment. Review of Systems Review of Systems: ROS unobtainable: Yes unobtainable due to medical condition (Dimension) [facility] Past Medical History Medical History (Updated 10/09/21 @ 06:00 by Miranda Castro MD) Aortic valve stenosis Chronic anemia Chronic constipation Chronic diastolic heart failure Chronic kidney disease, stage 4 (severe) COPD (chronic obstructive pulmonary disease) Dementia Depression Diabetes Diabetic neuropathy GERD (gastroesophageal reflux disease) History of atrial fibrillation Hypertension Obstructive sleep apnea Osteoporosis Vitamin D deficiency Surgical History Surgical History H/O prosthetic heart valve History of hip surgery History of left above knee amputation Pacemaker Due to sick sinus syndrome Family History Family History Other Unknown family medical history Social History Social History Social History: Resides at [facility]. Code status: Full code Decision maker: Gay Bryan (daughter) Smoking status: Unknown if ever smoked Alcohol intake: unknown Substance use: unknown Spiritual care concerns: No Meds Home Medications and Allergies Home Medications Medication Instructions Recorded Confirmed Type Arginaid 4.5 g PO DAILY 04/28/21 06/22/21 History Metamucil 1 tsp PO ONCE 04/28/21 06/22/21 History Movantik 12.5 mg PO QAM 04/28/21 06/22/21 History acetaminophen 325 mg PO Q6-8H PRN 04/28/21 06/22/21 History calcium carbonate 500 mg PO BID 04/28/21 06/22/21 History ergocalciferol (vitamin D2) 1,250 mcg PO 2XW 04/28/21 06/22/21 History [Vitamin D2] furosemide 20 mg PO BID 04/28/21 06/22/21 History gabapentin 300 mg PO TID 04/28/21 06/22/21 History insulin lispro 1 sliding scale dose SUBCUT TID 04/28/21 06/22/21 History metoprolol succinate 50 mg PO DAILY 04/28/21 06/22/21 History mirtazapine 15 mg PO HS 04/28/21 06/22/21 History ondansetron HCl [Zofran] 4 mg PO Q6H PRN 04/28/21 06/22/21 History pantoprazole 40 mg PO BID 04/28/21 06/22/21 History sennosides 8.6 mg PO BID 04/28/21 06/22/21 History white petrolatum 1 applic TOPICAL BID PRN 04/28/21 06/22/21 History warfarin 3 mg PO DAILY 04/29/21 06/22/21 History oxycodone 5 mg PO Q8H PRN #20 tablet 05/04/21 06/22/21 Rx sodium bicarbonate 650 mg PO BID #60 ta
[2021-10-09] MEDS: SODIUM CHLORIDE 0.9% IV 1,000 ML 999 ML IV CONT (06:15)
[2021-10-09 06:17] LABS: Reflex Lactic Acid Yes or No Add Lactic
--- NOTE | 2021-10-09 06:47 | PC.NURSE ---
This patient, Nadege Bryan, was admitted to IMU Room 202-. Patient/family oriented to hospital policies and general routines including ID bracelet, bed and alarms, visiting hours, pain management, procedures, bathroom and other care routines, personal items, smoking policy, room service/diet, and visiting hours. Patient are encouraged to report perceived risks to care and to ask questions if they do not understand what they are told or what they should do.
[2021-10-09 07:59] LABS: Lactic Acid 1.1 mmol/L (0.7-2.1)
[2021-10-09 08:14] LABS: Troponin I 0.075 ng/mL (0.000-0.034)
[2021-10-09 10:48] LABS: Troponin I 0.067 ng/mL (0.000-0.034)
[2021-10-09] MEDS: THERAPEUTIC MULTIVITAMINS/MINERALS TAB (*BKC) 1 TABLET PO (12:42)
[2021-10-09] MEDS: ARTIFICIAL TEARS OPHTH SOLN 15 ML BOTTLE 1 DROP EACH EYE ×2 (12:42→21:21)
[2021-10-09] MEDS: PANTOPRAZOLE 40 MG TABLET PO ×2 (12:43→21:21)
[2021-10-09] MEDS: SODIUM BICARBONATE TAB 650 MG TABLET PO ×2 (12:43→18:28)
[2021-10-09] MEDS: METOPROLOL SUCCINATE EXT REL 50 MG TABCR PO (12:43)
[2021-10-09] MEDS: GABAPENTIN 300 MG CAPSULE PO ×2 (12:44→21:21)
[2021-10-09 13:12] LABS: Glucose Point of Care 120 mg/dl (65-105)
--- NOTE | 2021-10-09 13:58 | PM.IMPN ---
Progress Note: A&P Assessment and Plan (1) Urinary tract infection: Code(s): N39.0 - Urinary tract infection, site not specified Status: Acute Assessment and Plan: Patient received levofloxacin in the emergency room however prior or cultures showed resistance to levofloxacin Imipenem has been ordered Await cultures Supportive care 10/09/2021: interval history: patient 81-year-old female currently in rehab status post right femur ORIF was sent to emergency department with shortness of patient is found to have UTI, chest x-ray showing bilateral infiltrate and white counts of 17,000 with BNP of 4000 patient is being treated with imipenem and doxycycline IV antibiotics for presumed UTI and pneumonia and will start the patient on Lasix for vascular congestion, patient with a mechanical valve on Coumadin will monitor INR 2.5-3.5, (2) Lung infiltrate: Code(s): R91.8 - Other nonspecific abnormal finding of lung field Status: Acute Assessment and Plan: Bilateral lung infiltrates Elevated BNP Edema versus pneumonia Continue with antibiotics empirically Await cultures (3) Obstructive sleep apnea: Code(s): G47.33 - Obstructive sleep apnea (adult) (pediatric) Status: Inactive Assessment and Plan: CPAP at nighttime (4) Chronic diastolic heart failure: Code(s): I50.32 - Chronic diastolic (congestive) heart failure Status: Acute Assessment and Plan: Acute on chronic Gentle diuresis (5) Aortic valve stenosis: Code(s): I35.0 - Nonrheumatic aortic (valve) stenosis Status: Acute Assessment and Plan: Continue Coumadin (6) Chronic kidney disease, stage 4 (severe): Code(s): N18.4 - Chronic kidney disease, stage 4 (severe) Status: Inactive (7) Acute kidney injury: Code(s): N17.9 - Acute kidney failure, unspecified Status: Resolved Assessment and Plan: Likely to be pre renal azotemia Continue to monitor (8) Unilateral AKA: Code(s): S78.119A - Complete traumatic amputation at level between unspecified hip and knee, initial encounter Status: Acute Assessment and Plan: Fall precautions PT OT (9) Elevated troponin: Code(s): R77.8 - Other specified abnormalities of plasma proteins Status: Acute Assessment and Plan: Likely to be nonischemic myocardial injury ECG shows a paced rhythm (10) Diabetic neuropathy: Code(s): E11.40 - Type 2 diabetes mellitus with diabetic neuropathy, unspecified Status: Inactive Assessment and Plan: Unchanged Continue home med (11) GERD (gastroesophageal reflux disease): Code(s): K21.9 - Gastro-esophageal reflux disease without esophagitis Status: Inactive Assessment and Plan: PPI (12) Chronic anemia: Code(s): D64.9 - Anemia, unspecified Status: Inactive Assessment and Plan: Continue to monitor Likely to be anemia of chronic disease (13) Femur fracture, right: Code(s): S72.91XA - Unspecified fracture of right femur, initial encounter for closed fracture Status: Acute Assessment and Plan: Patient was undergoing rehabilitation Continue PT OT as needed Subjective Date/time seen: 10/09/21 13:58 Chief Complaint: Shortness of breath Narrative: This is an 81-year-old female with past medical history significant for recurrent urinary tract infections, congestive heart failure, aortic valve stenosis, chronic anemia, chronic constipation, chronic diastolic heart failure chronic kidney disease stage 4, COPD, dementia, diabetes, diabetic neuropathy, gastroesophageal reflux disease, atrial fibrillation, obstructive sleep apnea, osteoporosis, prosthetic heart valve on chronic anticoagulation with Coumadin, right AKA. Patient was brought to the emergency room after staff raise concerns of her prison where she resides at after having right femur fracture with ORIF and she has be
[2021-10-09] MEDS: FERROUS SULFATE 324 MG TABLET PO (18:27)
[2021-10-09] MEDS: WARFARIN (*PBKC) 3 MG TABLET PO (18:28)
[2021-10-09 19:57] LABS: SARS-CoV-2 RNA PCR Negative
[2021-10-09] MEDS: MIRTAZAPINE 15 MG TABLET PO (21:21)
[2021-10-09] MEDS: oxyCODONE HCL (*CRX) 20 MG TAB SR 12HR PO (21:22)
[2021-10-10] VITALS (10 sets, daily range): BP systolic 122–151; BP diastolic 54–65; PULSE 70–77; RESP 16–19; TEMP 36.6–37; O2SAT 92–98
[2021-10-10 01:09] LABS: Glucose Point of Care 123 mg/dl (65-105)
[2021-10-10 04:52] LABS: Basophils Percent Auto 0.3 % (0.2-1.2); Eosinophils Absolute Auto 0.1 K/mm3 (0-0.3); Eosinophils Percent Auto 0.7 % (0-4.4); Hemoglobin 9.5 g/dL (12.0-15.0); Immature Granulocyte Absolute 0.05 K/mm3 (0.00-0.031); Immature Granulocyte Percent A 0.6 % (0-0.5); Lymphocytes Absolute Auto 0.92 K/mm3 (0.9-3.2); Lymphocytes Percent Auto 10.3 % (18.3-44.2); Mean Corpuscular HGB Conc 30.6 g/dl (32-36); Mean Corpuscular Hemoglobin 27.8 pg (26-34); Mean Corpuscular Volume 90.6 fl (80-100); Mean Platelet Volume 9.4 fl (7.4-10.4); Monocytes Absolute Auto 0.5 K/mm3 (0.1-0.6); Monocytes Percent Auto 5.4 % (2.6-8.5); Neutrophils Absolute Auto 7.4 K/mm3 (1.3-6.7); Neutrophils Percent Auto 82.7 % (45.5-73.1); Platelet Count Result 224 k/mm3 (150-375); Red Blood Count 3.42 M/mm3 (4.2-5.4); Red Cell Distribution Width 18.8 % (11.5-14.5); White Blood Count 8.9 K/mm3 (4.5-10.0)
[2021-10-10 05:04] LABS: INR 3.7; Prothrombin Time 35.8 Seconds (11.1-14.7)
[2021-10-10 05:10] LABS: Alanine Aminotransferase 21 U/L (4-35); Albumin Level 2.9 g/dL (3.5-5.1); Alkaline Phosphatase 100 U/L (38-126); Anion Gap 4 mmol/L (8-16); Aspartate Amino Transferase 35 U/L (14-36); Bilirubin,Total 0.3 mg/dL (0.2-1.3); Blood Urea Nitrogen 31 mg/dL (7-17); Calcium 8.3 mg/dL (8.4-10.2); Carbon Dioxide 29 mmol/L (22-30); Chloride 103 mmol/L (98-107); Estimated CRCL calculation 24 ml/min; Estimated Glomerular Filt Rate 39; Glucose 130 mg/dL (65-110); Potassium 4.6 mmol/L (3.4-5.0); Sodium 136 mmol/L (137-145)
[2021-10-10] MEDS: GABAPENTIN 300 MG CAPSULE PO ×3 (06:22→21:58)
[2021-10-10 07:39] LABS: Glucose Point of Care 109 mg/dl (65-105)
[2021-10-10] MEDS: SODIUM BICARBONATE TAB 650 MG TABLET PO ×2 (08:39→17:12)
[2021-10-10] MEDS: METOPROLOL SUCCINATE EXT REL 50 MG TABCR PO (08:39)
[2021-10-10] MEDS: FUROSEMIDE INJ 40 MG/4 ML VIAL 20 MG IV PUSH (08:39)
[2021-10-10] MEDS: polyethylene glycoL 3350 17 GM POWD.PACK PO ×2 (08:39→21:58)
[2021-10-10] MEDS: oxyCODONE HCL (*CRX) 20 MG TAB SR 12HR PO ×2 (08:39→22:05)
[2021-10-10] MEDS: FERROUS SULFATE 324 MG TABLET PO ×2 (08:40→17:12)
[2021-10-10] MEDS: PANTOPRAZOLE 40 MG TABLET PO ×2 (08:40→21:58)
[2021-10-10] MEDS: THERAPEUTIC MULTIVITAMINS/MINERALS TAB (*BKC) 1 TABLET PO (08:40)
[2021-10-10 12:17] LABS: Glucose Point of Care 146 mg/dl (65-105)
--- NOTE | 2021-10-10 13:07 | PM.IMPN ---
Progress Note: A&P Assessment and Plan (1) Urinary tract infection: Code(s): N39.0 - Urinary tract infection, site not specified Status: Acute Assessment and Plan: Patient received levofloxacin in the emergency room however prior or cultures showed resistance to levofloxacin Imipenem has been ordered Await cultures Supportive care 10/09/2021: interval history: patient 81-year-old female currently in rehab status post right femur ORIF was sent to emergency department with shortness of patient is found to have UTI, chest x-ray showing bilateral infiltrate and white counts of 17,000 with BNP of 4000 patient is being treated with imipenem and doxycycline IV antibiotics for presumed UTI and pneumonia and will start the patient on Lasix for vascular congestion, patient with a mechanical valve on Coumadin will monitor INR 2.5-3.5, 10/10/2021: interval history: patient COVID test is negative and off isolation, patient 81-year-old female currently in rehab status post right femur ORIF was sent to emergency department with shortness of patient is found to have UTI, chest x-ray showed bilateral infiltrate and white counts of 17,000 and today trending down 8.9, with BNP of 4000 patient is being treated with imipenem and doxycycline IV antibiotics for presumed UTI, urine culture is growing Enterococcus pending sensitivity, and pneumonia, and will start the patient on Lasix for vascular congestion, patient with a mechanical valve on Coumadin will monitor INR today 3.7 (2) Lung infiltrate: Code(s): R91.8 - Other nonspecific abnormal finding of lung field Status: Acute Assessment and Plan: Bilateral lung infiltrates Elevated BNP Edema versus pneumonia Continue with antibiotics empirically Await cultures (3) Obstructive sleep apnea: Code(s): G47.33 - Obstructive sleep apnea (adult) (pediatric) Status: Inactive Assessment and Plan: CPAP at nighttime (4) Chronic diastolic heart failure: Code(s): I50.32 - Chronic diastolic (congestive) heart failure Status: Acute Assessment and Plan: Acute on chronic Gentle diuresis (5) Aortic valve stenosis: Code(s): I35.0 - Nonrheumatic aortic (valve) stenosis Status: Acute Assessment and Plan: Continue Coumadin (6) Chronic kidney disease, stage 4 (severe): Code(s): N18.4 - Chronic kidney disease, stage 4 (severe) Status: Inactive (7) Acute kidney injury: Code(s): N17.9 - Acute kidney failure, unspecified Status: Resolved Assessment and Plan: Likely to be pre renal azotemia Continue to monitor (8) Unilateral AKA: Code(s): S78.119A - Complete traumatic amputation at level between unspecified hip and knee, initial encounter Status: Acute Assessment and Plan: Fall precautions PT OT (9) Elevated troponin: Code(s): R77.8 - Other specified abnormalities of plasma proteins Status: Acute Assessment and Plan: Likely to be nonischemic myocardial injury ECG shows a paced rhythm (10) Diabetic neuropathy: Code(s): E11.40 - Type 2 diabetes mellitus with diabetic neuropathy, unspecified Status: Inactive Assessment and Plan: Unchanged Continue home med (11) GERD (gastroesophageal reflux disease): Code(s): K21.9 - Gastro-esophageal reflux disease without esophagitis Status: Inactive Assessment and Plan: PPI (12) Chronic anemia: Code(s): D64.9 - Anemia, unspecified Status: Inactive Assessment and Plan: Continue to monitor Likely to be anemia of chronic disease (13) Femur fracture, right: Code(s): S72.91XA - Unspecified fracture of right femur, initial encounter for closed fracture Status: Acute Assessment and Plan: Patient was undergoing rehabilitation Continue PT OT as needed Subjective Date/time seen: 10/10/21 13:07 10/09/2021: interval history: stephanie
[2021-10-10 13:15] LABS: Glucose Point of Care 106 mg/dl (65-105)
[2021-10-10] MEDS: LIDOCAINE HCL 1% LOCAL INJ 2 ML AMPUL 5 ML INFILTRATE (15:03)
--- NOTE | 2021-10-10 15:24 | PC.NURSE ---
This patient, Nadege Bryan, was transferred to [[id number] ] on 10/10/21 at 1510. Personal belongings sent with patient. Report given to [CHRISTOPHER Andersen ]. Appropriate documentation sent with patient.
--- NOTE | 2021-10-10 15:25 | PC.NURSE ---
This patient, Nadege Bryan, was received from [ ] on 10/10/21 at 1515 to room 302. Patient/family oriented to unit policies and routines
[2021-10-10 16:15] LABS: Glucose Point of Care 130 mg/dl (65-105)
[2021-10-10] MEDS: ARTIFICIAL TEARS OPHTH SOLN 15 ML BOTTLE 1 DROP EACH EYE (21:58)
[2021-10-10] MEDS: CENTRAL LINE FLUSH 10 ML IV PUSH (21:58)
[2021-10-10] MEDS: MIRTAZAPINE 15 MG TABLET PO (21:58)
[2021-10-11 00:36] VITALS: O2SAT 92
[2021-10-11 01:29] LABS: Glucose Point of Care 147 mg/dl (65-105)
[2021-10-11] MEDS: GABAPENTIN 300 MG CAPSULE PO ×3 (05:56→21:21)
[2021-10-11] MEDS: CENTRAL LINE FLUSH 10 ML IV PUSH ×3 (05:58→21:22)
[2021-10-11 06:00] VITALS: BP 132/51; PULSE 69; RESP 18; TEMP 36.1; O2SAT 98
[2021-10-11 06:44] LABS: Basophils Percent Auto 0.2 % (0.2-1.2); Eosinophils Absolute Auto 0.1 K/mm3 (0-0.3); Eosinophils Percent Auto 1.6 % (0-4.4); Hematocrit 29.1 % (37.0-47.0); Immature Granulocyte Absolute 0.03 K/mm3 (0.00-0.031); Immature Granulocyte Percent A 0.4 % (0-0.5); Lymphocytes Absolute Auto 0.98 K/mm3 (0.9-3.2); Lymphocytes Percent Auto 11.8 % (18.3-44.2); Mean Corpuscular HGB Conc 30.9 g/dl (32-36); Mean Corpuscular Hemoglobin 27.6 pg (26-34); Mean Corpuscular Volume 89.3 fl (80-100); Mean Platelet Volume 9.4 fl (7.4-10.4); Monocytes Absolute Auto 0.6 K/mm3 (0.1-0.6); Monocytes Percent Auto 6.8 % (2.6-8.5); Neutrophils Absolute Auto 6.6 K/mm3 (1.3-6.7); Neutrophils Percent Auto 79.2 % (45.5-73.1); Platelet Count Result 250 k/mm3 (150-375); Red Blood Count 3.26 M/mm3 (4.2-5.4); Red Cell Distribution Width 18.6 % (11.5-14.5); White Blood Count 8.3 K/mm3 (4.5-10.0)
[2021-10-11 06:54] LABS: INR 3.4; Prothrombin Time 33.5 Seconds (11.1-14.7)
[2021-10-11 06:59] LABS: Alanine Aminotransferase 17 U/L (4-35); Alkaline Phosphatase 99 U/L (38-126); Anion Gap 2 mmol/L (8-16); Aspartate Amino Transferase 27 U/L (14-36); Bilirubin,Total 0.3 mg/dL (0.2-1.3); Blood Urea Nitrogen 29 mg/dL (7-17); Calcium 8.5 mg/dL (8.4-10.2); Carbon Dioxide 31 mmol/L (22-30); Chloride 98 mmol/L (98-107); Estimated CRCL calculation 26 ml/min; Estimated Glomerular Filt Rate 43; Glucose 106 mg/dL (65-110); Potassium 4.5 mmol/L (3.4-5.0); Sodium 131 mmol/L (137-145)
[2021-10-11 08:36] LABS: Glucose Point of Care 136 mg/dl (65-105)
[2021-10-11] MEDS: ARTIFICIAL TEARS OPHTH SOLN 15 ML BOTTLE 1 DROP EACH EYE ×2 (08:59→21:19)
[2021-10-11] MEDS: FERROUS SULFATE 324 MG TABLET PO ×2 (08:59→18:14)
[2021-10-11 09:00] VITALS: PULSE 68
[2021-10-11] MEDS: SODIUM BICARBONATE TAB 650 MG TABLET PO ×2 (09:00→18:14)
[2021-10-11] MEDS: METOPROLOL SUCCINATE EXT REL 50 MG TABCR PO (09:00)
[2021-10-11] MEDS: SALINE 0.65% NAS SOLN 44 ML BTL 1 SPRAY NASAL (09:03)
[2021-10-11] MEDS: THERAPEUTIC MULTIVITAMINS/MINERALS TAB (*BKC) 1 TABLET PO (09:03)
[2021-10-11] MEDS: FUROSEMIDE INJ 40 MG/4 ML VIAL 20 MG IV PUSH (09:03)
[2021-10-11] MEDS: PANTOPRAZOLE 40 MG TABLET PO ×2 (09:04→21:20)
[2021-10-11] MEDS: PSYLLIUM POWDER PACKET 1 PACKET PO (09:06)
[2021-10-11] MEDS: polyethylene glycoL 3350 17 GM POWD.PACK PO (09:06)
[2021-10-11] MEDS: oxyCODONE HCL (*CRX) 20 MG TAB SR 12HR PO ×2 (09:12→21:20)
--- NOTE | 2021-10-11 10:42 | WPDCDIQUERY2 ---
CDI Query Clarification Request -Sepsis documented by EDP -Pneumonia and UTI documented by hospitalist -On arrival pO2 was 67.8 on O2 at 2L and BP MAP's 64,69,65,61,61. If these findings are due to infection/ sepsis, SOFA score would be 3. Please clarify if sepsis was ruled in or ruled out. <Razia Cruz RN - Last Filed: 10/11/21 10:45> Clarified Diagnosis (1) Acute UTI: Code(s): N39.0 - Urinary tract infection, site not specified <aRzia Cruz RN - Last Filed: 10/11/21 10:45> Status: Acute <Razia Cruz RN - Last Filed: 10/11/21 10:45> Assessment and Plan: sepsis was ruled, blood culture were negative there was slight fever and slightly elevated lactic acid, most likely patient had a UTI <Tara Linares MD - Last Filed: 10/13/21 12:37>
[2021-10-11 13:14] LABS: Glucose Point of Care 115 mg/dl (65-105)
--- NOTE | 2021-10-11 13:57 | PM.IMPN ---
Progress Note: A&P Assessment and Plan (1) Urinary tract infection: Code(s): N39.0 - Urinary tract infection, site not specified Status: Acute Assessment and Plan: Patient received levofloxacin in the emergency room however prior or cultures showed resistance to levofloxacin Imipenem has been ordered Await cultures Supportive care 10/09/2021: interval history: patient 81-year-old female currently in rehab status post right femur ORIF was sent to emergency department with shortness of patient is found to have UTI, chest x-ray showing bilateral infiltrate and white counts of 17,000 with BNP of 4000 patient is being treated with imipenem and doxycycline IV antibiotics for presumed UTI and pneumonia and will start the patient on Lasix for vascular congestion, patient with a mechanical valve on Coumadin will monitor INR 2.5-3.5, 10/10/2021: interval history: patient COVID test is negative and off isolation, patient 81-year-old female currently in rehab status post right femur ORIF was sent to emergency department with shortness of patient is found to have UTI, chest x-ray showed bilateral infiltrate and white counts of 17,000 and today trending down 8.9, with BNP of 4000 patient is being treated with imipenem and doxycycline IV antibiotics for presumed UTI, urine culture is growing Enterococcus pending sensitivity, and pneumonia, and will start the patient on Lasix for vascular congestion, patient with a mechanical valve on Coumadin will monitor INR today 3.7 10/11/2021: interval history: patient remains clinically stable has no new complaints will continue IV antibiotics for UTI and possible pneumonia, as well as vascular congestion with Lasix, will have a PT OT evaluate the patient, her INR today is 3.4 patient has a mechanical cardiac valve requires INR 2.5-3.5 (2) Lung infiltrate: Code(s): R91.8 - Other nonspecific abnormal finding of lung field Status: Acute Assessment and Plan: Bilateral lung infiltrates Elevated BNP Edema versus pneumonia Continue with antibiotics empirically Await cultures (3) Obstructive sleep apnea: Code(s): G47.33 - Obstructive sleep apnea (adult) (pediatric) Status: Inactive Assessment and Plan: CPAP at nighttime (4) Chronic diastolic heart failure: Code(s): I50.32 - Chronic diastolic (congestive) heart failure Status: Acute Assessment and Plan: Acute on chronic Gentle diuresis (5) Aortic valve stenosis: Code(s): I35.0 - Nonrheumatic aortic (valve) stenosis Status: Acute Assessment and Plan: Continue Coumadin (6) Chronic kidney disease, stage 4 (severe): Code(s): N18.4 - Chronic kidney disease, stage 4 (severe) Status: Inactive (7) Acute kidney injury: Code(s): N17.9 - Acute kidney failure, unspecified Status: Resolved Assessment and Plan: Likely to be pre renal azotemia Continue to monitor (8) Unilateral AKA: Code(s): S78.119A - Complete traumatic amputation at level between unspecified hip and knee, initial encounter Status: Acute Assessment and Plan: Fall precautions PT OT (9) Elevated troponin: Code(s): R77.8 - Other specified abnormalities of plasma proteins Status: Acute Assessment and Plan: Likely to be nonischemic myocardial injury ECG shows a paced rhythm (10) Diabetic neuropathy: Code(s): E11.40 - Type 2 diabetes mellitus with diabetic neuropathy, unspecified Status: Inactive Assessment and Plan: Unchanged Continue home med (11) GERD (gastroesophageal reflux disease): Code(s): K21.9 - Gastro-esophageal reflux disease without esophagitis Status: Inactive Assessment and Plan: PPI (12) Chronic anemia: Code(s): D64.9 - Anemia, unspecified Status: Inactive Assessment and Plan: Continue to monitor Likely to be anemia of chronic disease (13) Femur f
[2021-10-11 14:00] VITALS: BP 117/72; PULSE 69; RESP 16; TEMP 36.4; O2SAT 94
[2021-10-11 17:17] LABS: Glucose Point of Care 203 mg/dl (65-105)
[2021-10-11] MEDS: INSULIN ASPART (*BKC) 100 UNITS/ML SUB-Q (18:10)
[2021-10-11] MEDS: WARFARIN (*PBKC) 3 MG TABLET PO (18:12)
[2021-10-11] MEDS: MIRTAZAPINE 15 MG TABLET PO (21:23)
[2021-10-11 21:52] VITALS: BP 131/94; PULSE 70; RESP 18; TEMP 37; O2SAT 96
[2021-10-11] MEDS: ALTEPLASE 2 MG VIAL (CATHFLO) IV PUSH (22:36)
[2021-10-12] MEDS: CENTRAL LINE FLUSH 10 ML IV PUSH ×3 (05:27→23:00)
[2021-10-12] MEDS: GABAPENTIN 300 MG CAPSULE PO ×3 (05:27→23:00)
[2021-10-12 05:37] VITALS: BP 140/72; PULSE 69; RESP 18; TEMP 36.6; O2SAT 98
[2021-10-12 06:47] LABS: Basophils Percent Auto 0.3 % (0.2-1.2); Eosinophils Absolute Auto 0.1 K/mm3 (0-0.3); Eosinophils Percent Auto 1.1 % (0-4.4); Hematocrit 30.7 % (37.0-47.0); Hemoglobin 9.3 g/dL (12.0-15.0); Immature Granulocyte Absolute 0.04 K/mm3 (0.00-0.031); Immature Granulocyte Percent A 0.4 % (0-0.5); Lymphocytes Absolute Auto 1.14 K/mm3 (0.9-3.2); Lymphocytes Percent Auto 11.9 % (18.3-44.2); Mean Corpuscular HGB Conc 30.3 g/dl (32-36); Mean Corpuscular Hemoglobin 27.8 pg (26-34); Mean Corpuscular Volume 91.9 fl (80-100); Mean Platelet Volume 9.8 fl (7.4-10.4); Monocytes Absolute Auto 0.5 K/mm3 (0.1-0.6); Neutrophils Absolute Auto 7.8 K/mm3 (1.3-6.7); Neutrophils Percent Auto 81.3 % (45.5-73.1); Platelet Count Result 251 k/mm3 (150-375); Red Blood Count 3.34 M/mm3 (4.2-5.4); Red Cell Distribution Width 18.7 % (11.5-14.5); White Blood Count 9.6 K/mm3 (4.5-10.0)
[2021-10-12 06:56] LABS: INR 3.1; Prothrombin Time 31.2 Seconds (11.1-14.7)
[2021-10-12 07:00] LABS: Alanine Aminotransferase 15 U/L (4-35); Albumin Level 2.9 g/dL (3.5-5.1); Alkaline Phosphatase 91 U/L (38-126); Anion Gap 3 mmol/L (8-16); Aspartate Amino Transferase 25 U/L (14-36); Bilirubin,Total 0.2 mg/dL (0.2-1.3); Blood Urea Nitrogen 28 mg/dL (7-17); Calcium 8.6 mg/dL (8.4-10.2); Carbon Dioxide 30 mmol/L (22-30); Chloride 100 mmol/L (98-107); Estimated CRCL calculation 31 ml/min; Estimated Glomerular Filt Rate 53; Glucose 116 mg/dL (65-110); Potassium 4.5 mmol/L (3.4-5.0); Sodium 133 mmol/L (137-145)
[2021-10-12 08:59] LABS: Glucose Point of Care 108 mg/dl (65-105)
[2021-10-12] MEDS: ARTIFICIAL TEARS OPHTH SOLN 15 ML BOTTLE 1 DROP EACH EYE ×2 (09:55→23:00)
[2021-10-12] MEDS: SALINE 0.65% NAS SOLN 44 ML BTL 1 SPRAY NASAL (09:55)
[2021-10-12] MEDS: FERROUS SULFATE 324 MG TABLET PO ×2 (09:55→18:50)
[2021-10-12 09:57] VITALS: PULSE 65
[2021-10-12] MEDS: polyethylene glycoL 3350 17 GM POWD.PACK PO (09:57)
[2021-10-12] MEDS: METOPROLOL SUCCINATE EXT REL 50 MG TABCR PO (09:57)
[2021-10-12] MEDS: THERAPEUTIC MULTIVITAMINS/MINERALS TAB (*BKC) 1 TABLET PO (09:57)
[2021-10-12] MEDS: SODIUM BICARBONATE TAB 650 MG TABLET PO ×2 (09:57→18:51)
[2021-10-12] MEDS: PANTOPRAZOLE 40 MG TABLET PO ×2 (09:57→23:00)
[2021-10-12] MEDS: PSYLLIUM POWDER PACKET 1 PACKET PO (09:57)
[2021-10-12] MEDS: FUROSEMIDE INJ 40 MG/4 ML VIAL 20 MG IV PUSH (09:57)
[2021-10-12] MEDS: oxyCODONE HCL (*CRX) 20 MG TAB SR 12HR PO ×2 (10:01→23:00)
--- NOTE | 2021-10-12 11:20 | PM.IMPN ---
Progress Note: A&P Assessment and Plan (1) Urinary tract infection: Code(s): N39.0 - Urinary tract infection, site not specified Status: Acute Assessment and Plan: Patient received levofloxacin in the emergency room however prior or cultures showed resistance to levofloxacin Imipenem has been ordered Await cultures Supportive care 10/09/2021: interval history: patient 81-year-old female currently in rehab status post right femur ORIF was sent to emergency department with shortness of patient is found to have UTI, chest x-ray showing bilateral infiltrate and white counts of 17,000 with BNP of 4000 patient is being treated with imipenem and doxycycline IV antibiotics for presumed UTI and pneumonia and will start the patient on Lasix for vascular congestion, patient with a mechanical valve on Coumadin will monitor INR 2.5-3.5, 10/10/2021: interval history: patient COVID test is negative and off isolation, patient 81-year-old female currently in rehab status post right femur ORIF was sent to emergency department with shortness of patient is found to have UTI, chest x-ray showed bilateral infiltrate and white counts of 17,000 and today trending down 8.9, with BNP of 4000 patient is being treated with imipenem and doxycycline IV antibiotics for presumed UTI, urine culture is growing Enterococcus pending sensitivity, and pneumonia, and will start the patient on Lasix for vascular congestion, patient with a mechanical valve on Coumadin will monitor INR today 3.7 10/11/2021: interval history: patient remains clinically stable has no new complaints will continue IV antibiotics for UTI and possible pneumonia, as well as vascular congestion with Lasix, will have a PT OT evaluate the patient, her INR today is 3.4 patient has a mechanical cardiac valve requires INR 2.5-3.5 10/12/2021: interval history: Patients chest x-ray with bilateral lung infiltrates. Pt has active cough, feels sob and unwell, continue current care with iv Primaxin cxr shows some pulmonary edema pt is also on iv lasix (2) Lung infiltrate: Code(s): R91.8 - Other nonspecific abnormal finding of lung field Status: Acute Assessment and Plan: Bilateral lung infiltrates Pt is started on primaxin bc negative to date (3) Obstructive sleep apnea: Code(s): G47.33 - Obstructive sleep apnea (adult) (pediatric) Status: Inactive Assessment and Plan: CPAP at nighttime (4) Chronic diastolic heart failure: Code(s): I50.32 - Chronic diastolic (congestive) heart failure Status: Acute Assessment and Plan: Acute on chronic on lasix IV qdaily continue to monitor bmp (5) Aortic valve stenosis: Code(s): I35.0 - Nonrheumatic aortic (valve) stenosis Status: Acute Assessment and Plan: Continue Coumadin continue to monitor INR (6) Chronic kidney disease, stage 4 (severe): Code(s): N18.4 - Chronic kidney disease, stage 4 (severe) Status: Inactive Assessment and Plan: Contine to monitor BMP (7) Acute kidney injury: Code(s): N17.9 - Acute kidney failure, unspecified Status: Resolved Assessment and Plan: creat is 1 today r (8) Unilateral AKA: Code(s): S78.119A - Complete traumatic amputation at level between unspecified hip and knee, initial encounter Status: Acute Assessment and Plan: Fall precautions PT OT (9) Elevated troponin: Code(s): R77.8 - Other specified abnormalities of plasma proteins Status: Acute Assessment and Plan: Likely to be nonischemic myocardial injury ECG shows a paced rhythm (10) Diabetic neuropathy: Code(s): E11.40 - Type 2 diabetes mellitus with diabetic neuropathy, unspecified Status: Inactive Assessment and Plan: Continue home med (11) GERD (gastroesophageal reflux disease): Code(s): K21.9 - Gastro-esophageal reflux disease without esophagitis
[2021-10-12 11:54] LABS: Glucose Point of Care 81 mg/dl (65-105)
[2021-10-12] MEDS: ACETAMINOPHEN 500 MG TABLET 1000 MG PO (12:58)
[2021-10-12 14:00] VITALS: BP 119/68; PULSE 71; RESP 14; TEMP 35.9; O2SAT 95
[2021-10-12 17:22] LABS: Glucose Point of Care 154 mg/dl (65-105)
[2021-10-12] MEDS: WARFARIN (*PBKC) 3 MG TABLET PO (18:53)
[2021-10-12 21:48] VITALS: BP 143/57; PULSE 70; RESP 16; TEMP 37.5; O2SAT 95
[2021-10-12] MEDS: MIRTAZAPINE 15 MG TABLET PO (23:00)
[2021-10-13] MEDS: CENTRAL LINE FLUSH 10 ML IV PUSH ×3 (05:32→21:19)
[2021-10-13] MEDS: GABAPENTIN 300 MG CAPSULE PO ×3 (05:32→21:17)
[2021-10-13 05:46] VITALS: BP 184/75; PULSE 84; RESP 18; TEMP 36.1; O2SAT 97
[2021-10-13 06:33] LABS: Basophils Percent Auto 0.4 % (0.2-1.2); Eosinophils Absolute Auto 0.1 K/mm3 (0-0.3); Eosinophils Percent Auto 1.1 % (0-4.4); Hematocrit 35.5 % (37.0-47.0); Hemoglobin 10.5 g/dL (12.0-15.0); Immature Granulocyte Absolute 0.06 K/mm3 (0.00-0.031); Immature Granulocyte Percent A 0.6 % (0-0.5); Lymphocytes Absolute Auto 1.09 K/mm3 (0.9-3.2); Lymphocytes Percent Auto 10.2 % (18.3-44.2); Mean Corpuscular HGB Conc 29.6 g/dl (32-36); Mean Corpuscular Hemoglobin 27.6 pg (26-34); Mean Corpuscular Volume 93.2 fl (80-100); Mean Platelet Volume 9.6 fl (7.4-10.4); Monocytes Absolute Auto 0.7 K/mm3 (0.1-0.6); Monocytes Percent Auto 6.9 % (2.6-8.5); Neutrophils Absolute Auto 8.6 K/mm3 (1.3-6.7); Neutrophils Percent Auto 80.8 % (45.5-73.1); Platelet Count Result 289 k/mm3 (150-375); Red Blood Count 3.81 M/mm3 (4.2-5.4); Red Cell Distribution Width 18.6 % (11.5-14.5); White Blood Count 10.7 K/mm3 (4.5-10.0)
[2021-10-13 06:46] LABS: INR 3.3; Prothrombin Time 32.8 Seconds (11.1-14.7)
[2021-10-13 06:56] LABS: Alanine Aminotransferase 14 U/L (4-35); Albumin Level 3.2 g/dL (3.5-5.1); Alkaline Phosphatase 101 U/L (38-126); Anion Gap 5 mmol/L (8-16); Aspartate Amino Transferase 30 U/L (14-36); Bilirubin,Total 0.2 mg/dL (0.2-1.3); Blood Urea Nitrogen 28 mg/dL (7-17); Calcium 8.9 mg/dL (8.4-10.2); Carbon Dioxide 30 mmol/L (22-30); Chloride 101 mmol/L (98-107); Estimated CRCL calculation 31 ml/min; Estimated Glomerular Filt Rate 53; Glucose 106 mg/dL (65-110); Potassium 4.4 mmol/L (3.4-5.0); Sodium 136 mmol/L (137-145)
[2021-10-13 08:00] VITALS: O2SAT 97
[2021-10-13 08:08] LABS: Glucose Point of Care 97 mg/dl (65-105)
--- NOTE | 2021-10-13 08:18 | PM.IMPN ---
Progress Note: A&P Assessment and Plan (1) Urinary tract infection: Code(s): N39.0 - Urinary tract infection, site not specified Status: Acute Assessment and Plan: Patient received empirical levofloxacin in the emergency room . Currently she is appropriately switched to imipenem for culture results 1: interval history: patient 81-year-old female currently in rehab status post right femur ORIF was sent to emergency department with shortness of patient is found to have UTI, and will start the patient on Lasix for vascular congestion, patient with a mechanical valve on Coumadin will monitor INR 2.5-3.5, today INR is therapeutic at 3.3. 10/10/2021: interval history: patient COVID test is negative and off isolation, patient 81-year-old female currently in rehab status post right femur ORIF was sent to emergency department with shortness of patient is found to have UTI, chest x-ray showed bilateral infiltrate and white counts of 17,000 and today trending down 8.9, with BNP of 4000 patient is being treated with imipenem and doxycycline IV antibiotics for presumed UTI, urine culture is growing Enterococcus pending sensitivity, and pneumonia, and will start the patient on Lasix for vascular congestion, patient with a mechanical valve on Coumadin will monitor INR today 3.7 10/11/2021: interval history: patient remains clinically stable has no new complaints will continue IV antibiotics for UTI and possible pneumonia, as well as vascular congestion with Lasix, will have a PT OT evaluate the patient, her INR today is 3.4 patient has a mechanical cardiac valve requires INR 2.5-3.5 10/12/2021: interval history: Patients chest x-ray with bilateral lung infiltrates. Pt has active cough, feels sob and unwell, continue current care with iv Primaxin cxr shows some pulmonary edema pt is also on iv lasix (2) Lung infiltrate: Code(s): R91.8 - Other nonspecific abnormal finding of lung field Status: Acute Assessment and Plan: On admission, chest x-ray showing bilateral infiltrate and white counts of 17,000 with BNP of 4000 patient is being treated with imipenem and doxycycline IV antibiotics for presumed pneumonia. Currently patient breathing spontaneously on room air. Repeat chest x-ray shows progression of lung infiltrate and small pleural effusion. Continue Primaxin and doxycycline. (3) Chronic diastolic heart failure: Code(s): I50.32 - Chronic diastolic (congestive) heart failure Status: Acute Assessment and Plan: Acute on chronic on lasix IV qdaily continue to monitor bmp . Kidney function remained stable. (4) Aortic valve stenosis: Code(s): I35.0 - Nonrheumatic aortic (valve) stenosis Status: Acute Assessment and Plan: Continue Coumadin continue to monitor INR remains stable. INR is therapeutic. (5) Acute kidney injury: Code(s): N17.9 - Acute kidney failure, unspecified Status: Resolved Assessment and Plan: creat is 1 today r (6) Unilateral AKA: Code(s): S78.119A - Complete traumatic amputation at level between unspecified hip and knee, initial encounter Status: Acute Assessment and Plan: Fall precautions PT OT (7) Elevated troponin: Code(s): R77.8 - Other specified abnormalities of plasma proteins Status: Acute Assessment and Plan: Likely to be nonischemic myocardial injury ECG shows a paced rhythm (8) Femur fracture, right: Code(s): S72.91XA - Unspecified fracture of right femur, initial encounter for closed fracture Status: Acute Assessment and Plan: Patient was undergoing rehabilitation Continue PT OT as needed Subjective Date/time seen: Date/time seen: 10/13/21 08:23 Interval history: 81-year-old female with past medical history significant for recurrent urinary tract infections, congestive heart failure, aortic valve stenosis, chronic anemia, chronic constipation, ch
[2021-10-13] MEDS: oxyCODONE HCL (*CRX) 20 MG TAB SR 12HR PO ×2 (09:51→21:23)
[2021-10-13] MEDS: SODIUM BICARBONATE TAB 650 MG TABLET PO ×2 (09:51→18:27)
[2021-10-13] MEDS: polyethylene glycoL 3350 17 GM POWD.PACK PO ×2 (09:51→21:17)
[2021-10-13] MEDS: PSYLLIUM POWDER PACKET 1 PACKET PO (09:51)
[2021-10-13 09:52] VITALS: PULSE 81
[2021-10-13] MEDS: THERAPEUTIC MULTIVITAMINS/MINERALS TAB (*BKC) 1 TABLET PO (09:52)
[2021-10-13] MEDS: SALINE 0.65% NAS SOLN 44 ML BTL 1 SPRAY NASAL (09:52)
[2021-10-13] MEDS: FERROUS SULFATE 324 MG TABLET PO ×2 (09:52→18:28)
[2021-10-13] MEDS: METOPROLOL SUCCINATE EXT REL 50 MG TABCR PO (09:52)
[2021-10-13] MEDS: PANTOPRAZOLE 40 MG TABLET PO ×2 (09:52→21:17)
[2021-10-13] MEDS: ARTIFICIAL TEARS OPHTH SOLN 15 ML BOTTLE 1 DROP EACH EYE ×2 (09:53→21:17)
[2021-10-13] MEDS: FUROSEMIDE INJ 40 MG/4 ML VIAL 20 MG IV PUSH (09:53)
[2021-10-13 11:57] LABS: Glucose Point of Care 113 mg/dl (65-105)
[2021-10-13] MEDS: ACETAMINOPHEN 500 MG TABLET 1000 MG PO (15:40)
[2021-10-13 17:07] LABS: Glucose Point of Care 132 mg/dl (65-105)
[2021-10-13] MEDS: WARFARIN (*PBKC) 3 MG TABLET PO (18:27)
[2021-10-13 20:00] VITALS: BP 146/61; PULSE 71; RESP 18; TEMP 36.4; O2SAT 98
[2021-10-13] MEDS: MIRTAZAPINE 15 MG TABLET PO (21:17)
[2021-10-13 23:31] LABS: Glucose Point of Care 121 mg/dl (65-105)
[2021-10-13 23:51] VITALS: BP 142/63; PULSE 66; RESP 16; TEMP 36.6; O2SAT 97
[2021-10-14] VITALS (8 sets, daily range): BP systolic 153–174; BP diastolic 68–83; PULSE 69–72; RESP 16–18; TEMP 36.2–37.4; O2SAT 94–100
[2021-10-14] MEDS: GABAPENTIN 300 MG CAPSULE PO ×3 (06:59→22:30)
[2021-10-14] MEDS: CENTRAL LINE FLUSH 10 ML IV PUSH ×3 (07:01→22:30)
--- NOTE | 2021-10-14 07:35 | PM.IMPN ---
Progress Note: A&P Assessment and Plan (1) Urinary tract infection: Code(s): N39.0 - Urinary tract infection, site not specified Status: Acute Assessment and Plan: Patient received levofloxacin in the emergency room however prior or cultures showed resistance to levofloxacin Imipenem has been ordered Await cultures Supportive care 10/09/2021: interval history: patient 81-year-old female currently in rehab status post right femur ORIF was sent to emergency department with shortness of patient is found to have UTI, chest x-ray showing bilateral infiltrate and white counts of 17,000 with BNP of 4000 patient is being treated with imipenem and doxycycline IV antibiotics for presumed UTI and pneumonia and will start the patient on Lasix for vascular congestion, patient with a mechanical valve on Coumadin will monitor INR 2.5-3.5, 10/10/2021: interval history: patient COVID test is negative and off isolation, patient 81-year-old female currently in rehab status post right femur ORIF was sent to emergency department with shortness of patient is found to have UTI, chest x-ray showed bilateral infiltrate and white counts of 17,000 and today trending down 8.9, with BNP of 4000 patient is being treated with imipenem and doxycycline IV antibiotics for presumed UTI, urine culture is growing Enterococcus pending sensitivity, and pneumonia, and will start the patient on Lasix for vascular congestion, patient with a mechanical valve on Coumadin will monitor INR today 3.7 10/11/2021: interval history: patient remains clinically stable has no new complaints will continue IV antibiotics for UTI and possible pneumonia, as well as vascular congestion with Lasix, will have a PT OT evaluate the patient, her INR today is 3.4 patient has a mechanical cardiac valve requires INR 2.5-3.5 10/12/2021: interval history: Patients chest x-ray with bilateral lung infiltrates. Pt has active cough, feels sob and unwell, continue current care with iv Primaxin cxr shows some pulmonary edema pt is also on iv lasix (2) Lung infiltrate: Code(s): R91.8 - Other nonspecific abnormal finding of lung field Status: Acute Assessment and Plan: Currently patient breathing spontaneously on room air. Repeat chest x-ray shows progression of lung infiltrate and small pleural effusion. Continue Primaxin. (3) Obstructive sleep apnea: Code(s): G47.33 - Obstructive sleep apnea (adult) (pediatric) Status: Inactive Assessment and Plan: CPAP at nighttime (4) Chronic diastolic heart failure: Code(s): I50.32 - Chronic diastolic (congestive) heart failure Status: Acute Assessment and Plan: Acute on chronic on lasix IV qdaily continue to monitor bmp . He function (5) Aortic valve stenosis: Code(s): I35.0 - Nonrheumatic aortic (valve) stenosis Status: Acute Assessment and Plan: Continue Coumadin continue to monitor INR remains stable. INR is therapeutic. (6) Chronic kidney disease, stage 4 (severe): Code(s): N18.4 - Chronic kidney disease, stage 4 (severe) Status: Inactive Assessment and Plan: Contine to monitor BMP . Elevation of BUN likely secondary to active diuresis. Continue to monitor review (7) Acute kidney injury: Code(s): N17.9 - Acute kidney failure, unspecified Status: Resolved Assessment and Plan: creat is 1 today r (8) Unilateral AKA: Code(s): S78.119A - Complete traumatic amputation at level between unspecified hip and knee, initial encounter Status: Acute Assessment and Plan: Fall precautions PT OT (9) Elevated troponin: Code(s): R77.8 - Other specified abnormalities of plasma proteins Status: Acute Assessment and Plan: Likely to be nonischemic myocardial injury ECG shows a paced rhythm (10) Diabetic neuropathy: Code(s): E11.40 - Type 2 diabetes mellitus with diabetic neuropathy,
[2021-10-14 07:45] LABS: Basophils Percent Auto 0.3 % (0.2-1.2); Eosinophils Absolute Auto 0.1 K/mm3 (0-0.3); Eosinophils Percent Auto 1.2 % (0-4.4); Hemoglobin 10.2 g/dL (12.0-15.0); Immature Granulocyte Absolute 0.04 K/mm3 (0.00-0.031); Immature Granulocyte Percent A 0.4 % (0-0.5); Lymphocytes Absolute Auto 1.14 K/mm3 (0.9-3.2); Lymphocytes Percent Auto 10.7 % (18.3-44.2); Mean Corpuscular HGB Conc 30.9 g/dl (32-36); Mean Corpuscular Hemoglobin 27.4 pg (26-34); Mean Corpuscular Volume 88.7 fl (80-100); Mean Platelet Volume 9.5 fl (7.4-10.4); Monocytes Absolute Auto 0.7 K/mm3 (0.1-0.6); Monocytes Percent Auto 6.3 % (2.6-8.5); Neutrophils Absolute Auto 8.6 K/mm3 (1.3-6.7); Neutrophils Percent Auto 81.1 % (45.5-73.1); Platelet Count Result 309 k/mm3 (150-375); Red Blood Count 3.72 M/mm3 (4.2-5.4); Red Cell Distribution Width 18.7 % (11.5-14.5); White Blood Count 10.6 K/mm3 (4.5-10.0)
[2021-10-14 07:51] LABS: INR 3.8; Prothrombin Time 36.4 Seconds (11.1-14.7)
[2021-10-14 08:27] LABS: Alanine Aminotransferase 12 U/L (4-35); Albumin Level 3.1 g/dL (3.5-5.1); Alkaline Phosphatase 98 U/L (38-126); Anion Gap 3 mmol/L (8-16); Aspartate Amino Transferase 27 U/L (14-36); Bilirubin,Total 0.3 mg/dL (0.2-1.3); Blood Urea Nitrogen 29 mg/dL (7-17); Calcium 9.3 mg/dL (8.4-10.2); Carbon Dioxide 31 mmol/L (22-30); Chloride 100 mmol/L (98-107); Estimated CRCL calculation 26 ml/min; Estimated Glomerular Filt Rate 43; Glucose 112 mg/dL (65-110); Potassium 4.3 mmol/L (3.4-5.0); Sodium 134 mmol/L (137-145)
[2021-10-14 08:36] LABS: Glucose Point of Care 97 mg/dl (65-105)
[2021-10-14] MEDS: PANTOPRAZOLE 40 MG TABLET PO ×2 (08:41→20:34)
[2021-10-14] MEDS: THERAPEUTIC MULTIVITAMINS/MINERALS TAB (*BKC) 1 TABLET PO (08:41)
[2021-10-14] MEDS: METOPROLOL SUCCINATE EXT REL 50 MG TABCR PO (08:41)
[2021-10-14] MEDS: FERROUS SULFATE 324 MG TABLET PO ×2 (08:44→16:46)
[2021-10-14] MEDS: SODIUM BICARBONATE TAB 650 MG TABLET PO ×2 (08:44→16:46)
[2021-10-14] MEDS: SALINE 0.65% NAS SOLN 44 ML BTL 1 SPRAY NASAL (08:44)
[2021-10-14] MEDS: ARTIFICIAL TEARS OPHTH SOLN 15 ML BOTTLE 1 DROP EACH EYE ×2 (08:45→20:35)
[2021-10-14] MEDS: oxyCODONE HCL (*CRX) 20 MG TAB SR 12HR PO ×2 (08:56→20:34)
[2021-10-14] MEDS: FUROSEMIDE INJ 40 MG/4 ML VIAL 20 MG IV PUSH (09:54)
[2021-10-14 11:57] LABS: Glucose Point of Care 125 mg/dl (65-105)
--- NOTE | 2021-10-14 12:07 | PC.NURSE ---
On 10/14/21, the student, Yady RIOS [facility], provided care and completed [facility] documentation on this patient. I have reviewed the student's documentation and agree with the findings.
[2021-10-14 16:38] LABS: Glucose Point of Care 95 mg/dl (65-105)
[2021-10-14] MEDS: MIRTAZAPINE 15 MG TABLET PO (20:34)
[2021-10-15] VITALS: BP 154/71; PULSE 72; RESP 16; TEMP 36.6; O2SAT 97
[2021-10-15 02:53] LABS: Glucose Point of Care 134 mg/dl (65-105)
[2021-10-15 04:00] VITALS: BP 155/80; PULSE 67; RESP 18; TEMP 36.4; O2SAT 96
[2021-10-15] MEDS: GABAPENTIN 300 MG CAPSULE PO ×2 (06:06→14:41)
[2021-10-15 06:42] LABS: Basophils Absolute Auto 0.1 K/mm3 (0.0-0.1); Basophils Percent Auto 0.4 % (0.2-1.2); Eosinophils Absolute Auto 0.1 K/mm3 (0-0.3); Eosinophils Percent Auto 1.2 % (0-4.4); Hematocrit 33.2 % (37.0-47.0); Hemoglobin 10.1 g/dL (12.0-15.0); Immature Granulocyte Absolute 0.09 K/mm3 (0.00-0.031); Immature Granulocyte Percent A 0.8 % (0-0.5); Lymphocytes Absolute Auto 1.22 K/mm3 (0.9-3.2); Lymphocytes Percent Auto 10.4 % (18.3-44.2); Mean Corpuscular HGB Conc 30.4 g/dl (32-36); Mean Corpuscular Hemoglobin 26.9 pg (26-34); Mean Corpuscular Volume 88.5 fl (80-100); Mean Platelet Volume 9.2 fl (7.4-10.4); Monocytes Absolute Auto 0.9 K/mm3 (0.1-0.6); Monocytes Percent Auto 7.7 % (2.6-8.5); Neutrophils Absolute Auto 9.3 K/mm3 (1.3-6.7); Neutrophils Percent Auto 79.5 % (45.5-73.1); Platelet Count Result 310 k/mm3 (150-375); Red Blood Count 3.75 M/mm3 (4.2-5.4); White Blood Count 11.7 K/mm3 (4.5-10.0)
[2021-10-15] MEDS: CENTRAL LINE FLUSH 10 ML IV PUSH ×2 (06:49→14:41)
[2021-10-15 06:50] LABS: INR 3.3; Prothrombin Time 32.6 Seconds (11.1-14.7)
[2021-10-15 06:58] LABS: Alanine Aminotransferase 10 U/L (4-35); Alkaline Phosphatase 96 U/L (38-126); Anion Gap 3 mmol/L (8-16); Aspartate Amino Transferase 27 U/L (14-36); Bilirubin,Total 0.3 mg/dL (0.2-1.3); Blood Urea Nitrogen 31 mg/dL (7-17); Calcium 9.1 mg/dL (8.4-10.2); Carbon Dioxide 31 mmol/L (22-30); Chloride 97 mmol/L (98-107); Estimated CRCL calculation 31 ml/min; Estimated Glomerular Filt Rate 53; Glucose 89 mg/dL (65-110); Potassium 4.1 mmol/L (3.4-5.0); Sodium 131 mmol/L (137-145)
[2021-10-15 07:46] LABS: Glucose Point of Care 96 mg/dl (65-105)
[2021-10-15 08:11] VITALS: BP 151/87; PULSE 70; RESP 16; TEMP 36; O2SAT 97
--- NOTE | 2021-10-15 08:23 | PM.IMPN ---
Progress Note: A&P Assessment and Plan (1) Urinary tract infection: Code(s): N39.0 - Urinary tract infection, site not specified Status: Acute Assessment and Plan: Patient received empirical levofloxacin in the emergency room . Currently she is appropriately switched to imipenem for culture results 1: interval history: patient 81-year-old female currently in rehab status post right femur ORIF was sent to emergency department with shortness of patient is found to have UTI, and will start the patient on Lasix for vascular congestion, patient with a mechanical valve on Coumadin will monitor INR 2.5-3.5, 10/10/2021: interval history: patient COVID test is negative and off isolation, patient 81-year-old female currently in rehab status post right femur ORIF was sent to emergency department with shortness of patient is found to have UTI, chest x-ray showed bilateral infiltrate and white counts of 17,000 and today trending down 8.9, with BNP of 4000 patient is being treated with imipenem and doxycycline IV antibiotics for presumed UTI, urine culture is growing Enterococcus pending sensitivity, and pneumonia, and will start the patient on Lasix for vascular congestion, patient with a mechanical valve on Coumadin will monitor INR today 3.7 10/11/2021: interval history: patient remains clinically stable has no new complaints will continue IV antibiotics for UTI and possible pneumonia, as well as vascular congestion with Lasix, will have a PT OT evaluate the patient, her INR today is 3.4 patient has a mechanical cardiac valve requires INR 2.5-3.5 10/12/2021: interval history: Patients chest x-ray with bilateral lung infiltrates. Pt has active cough, feels sob and unwell, continue current care with iv Primaxin cxr shows some pulmonary edema pt is also on iv lasix (2) Lung infiltrate: Code(s): R91.8 - Other nonspecific abnormal finding of lung field Status: Acute Assessment and Plan: On admission, chest x-ray showing bilateral infiltrate and white counts of 17,000 with BNP of 4000 patient is being treated with imipenem and doxycycline IV antibiotics for presumed pneumonia. Currently patient breathing spontaneously on room air. Repeat chest x-ray shows progression of lung infiltrate and small pleural effusion. Continue Primaxin and doxycycline. (3) Obstructive sleep apnea: Code(s): G47.33 - Obstructive sleep apnea (adult) (pediatric) Status: Inactive Assessment and Plan: CPAP at nighttime (4) Chronic diastolic heart failure: Code(s): I50.32 - Chronic diastolic (congestive) heart failure Status: Acute Assessment and Plan: Acute on chronic on lasix IV qdaily continue to monitor bmp . Kidney function remained stable. (5) Aortic valve stenosis: Code(s): I35.0 - Nonrheumatic aortic (valve) stenosis Status: Acute Assessment and Plan: Continue Coumadin continue to monitor INR remains stable. INR is therapeutic. (6) Chronic kidney disease, stage 4 (severe): Code(s): N18.4 - Chronic kidney disease, stage 4 (severe) Status: Inactive Assessment and Plan: Contine to monitor BMP . Elevation of BUN likely secondary to active diuresis. Continue to monitor review (7) Acute kidney injury: Code(s): N17.9 - Acute kidney failure, unspecified Status: Resolved Assessment and Plan: creat is 1 today r (8) Unilateral AKA: Code(s): S78.119A - Complete traumatic amputation at level between unspecified hip and knee, initial encounter Status: Acute Assessment and Plan: Fall precautions PT OT (9) Elevated troponin: Code(s): R77.8 - Other specified abnormalities of plasma proteins Status: Acute Assessment and Plan: Likely to be nonischemic myocardial injury ECG shows a paced rhythm (10) Diabetic neuropathy: Code(s): E11.40 - Type 2 diabetes mellitus with diabetic neuropath
[2021-10-15] MEDS: oxyCODONE HCL (*CRX) 20 MG TAB SR 12HR PO (09:18)
[2021-10-15 09:22] VITALS: PULSE 70
[2021-10-15] MEDS: METOPROLOL SUCCINATE EXT REL 50 MG TABCR PO (09:22)
[2021-10-15] MEDS: SODIUM BICARBONATE TAB 650 MG TABLET PO (09:23)
[2021-10-15] MEDS: ARTIFICIAL TEARS OPHTH SOLN 15 ML BOTTLE 1 DROP EACH EYE (09:23)
[2021-10-15] MEDS: FUROSEMIDE INJ 40 MG/4 ML VIAL 20 MG IV PUSH (09:23)
[2021-10-15] MEDS: FERROUS SULFATE 324 MG TABLET PO (09:23)
[2021-10-15] MEDS: PANTOPRAZOLE 40 MG TABLET PO (09:23)
[2021-10-15] MEDS: THERAPEUTIC MULTIVITAMINS/MINERALS TAB (*BKC) 1 TABLET PO (09:23)
--- NOTE | 2021-10-15 11:24 | PCNWS ---
Weekly nutritional screen. Patient is tolerating current diet with adequate intake of 70% of meals. No weight loss reported. No nutritional needs at this time.
[2021-10-15 12:11] VITALS: BP 171/95; PULSE 71; RESP 16; TEMP 37.2; O2SAT 96
[2021-10-15 12:15] LABS: Glucose Point of Care 105 mg/dl (65-105)
--- NOTE | 2021-10-15 13:36 | PM.DS ---
DS: Admitting Diagnosis Discharge Date 10/17/2021. Admitting Diagnosis (1) Urinary tract infection: (2) Lung infiltrate: (3) Obstructive sleep apnea: (4) Chronic diastolic heart failure: (5) Aortic valve stenosis: (6) Chronic kidney disease, stage 4 (severe): (7) Acute kidney injury: (8) Unilateral AKA: (9) Elevated troponin: (10) Diabetic neuropathy: (11) GERD (gastroesophageal reflux disease): (12) Chronic anemia: (13) Femur fracture, right. DS: Discharge Diagnosis Discharge Diagnosis (1) Urinary tract infection: Code(s): N39.0 - Urinary tract infection, site not specified Status: Acute Assessment and Plan: Patient received empirical levofloxacin in the emergency room . Currently she is appropriately switched to imipenem for culture results 1: interval history: patient 81-year-old female currently in rehab status post right femur ORIF was sent to emergency department with shortness of patient is found to have UTI, and will start the patient on Lasix for vascular congestion, patient with a mechanical valve on Coumadin will monitor INR 2.5-3.5, today INR is therapeutic at 3.3. 10/10/2021: interval history: patient COVID test is negative and off isolation, patient 81-year-old female currently in rehab status post right femur ORIF was sent to emergency department with shortness of patient is found to have UTI, chest x-ray showed bilateral infiltrate and white counts of 17,000 and today trending down 8.9, with BNP of 4000 patient is being treated with imipenem and doxycycline IV antibiotics for presumed UTI, urine culture is growing Enterococcus pending sensitivity, and pneumonia, and will start the patient on Lasix for vascular congestion, patient with a mechanical valve on Coumadin will monitor INR today 3.7 10/11/2021: interval history: patient remains clinically stable has no new complaints will continue IV antibiotics for UTI and possible pneumonia, as well as vascular congestion with Lasix, will have a PT OT evaluate the patient, her INR today is 3.4 patient has a mechanical cardiac valve requires INR 2.5-3.5 10/12/2021: interval history: Patients chest x-ray with bilateral lung infiltrates. Pt has active cough, feels sob and unwell, continue current care with iv Primaxin cxr shows some pulmonary edema pt is also on iv lasix (2) Lung infiltrate: Code(s): R91.8 - Other nonspecific abnormal finding of lung field Status: Acute Assessment and Plan: On admission, chest x-ray showing bilateral infiltrate and white counts of 17,000 with BNP of 4000 patient is being treated with imipenem and doxycycline IV antibiotics for presumed pneumonia. Currently patient breathing spontaneously on room air. Repeat chest x-ray shows progression of lung infiltrate and small pleural effusion. Continue Primaxin and doxycycline. (3) Chronic diastolic heart failure: Code(s): I50.32 - Chronic diastolic (congestive) heart failure Status: Acute Assessment and Plan: Acute on chronic on lasix IV qdaily continue to monitor bmp . Kidney function remained stable. (4) Aortic valve stenosis: Code(s): I35.0 - Nonrheumatic aortic (valve) stenosis Status: Acute Assessment and Plan: Continue Coumadin continue to monitor INR remains stable. INR is therapeutic. (5) Acute kidney injury: Code(s): N17.9 - Acute kidney failure, unspecified Status: Resolved Assessment and Plan: creat is 1 today r (6) Unilateral AKA: Code(s): S78.119A - Complete traumatic amputation at level between unspecified hip and knee, initial encounter Status: Acute Assessment and Plan: Fall precautions PT OT (7) Elevated troponin: Code(s): R77.8 - Other specified abnormalities of plasma proteins Status: Acute Assessment and Plan: Likely to be nonischemic myocardial injury ECG shows a paced rhythm (8) Femur fracture, right: Code(s): S7
--- NOTE | 2021-10-15 14:19 | PCNSR ---
On 10/15/21, the student,Tara Eason, provided care and completed [facility] documentation on this patient. I have reviewed the student's documentation and agree with the findings.
[2021-10-15] MEDS: NEOMYCIN/POLYMYXIN/BACITRACIN OINTMENT PACKET 1 PACKET (15:42)
== END 2021-10-15 16:20 | DRG 193 ==
LOC: ANHED 02:22 → ANHIMU 04:59 → ANH3MEDSUR 10-11 11:57 → ANHIMU 10-18 13:26
PROVIDERS: Family Medicine; Admitting Provider Internal Medicine; Emergency Provider General Practice; PCP Family Medicine; Visit Provider Internal Medicine
DX: J18.9 Pneumonia, unspecified organism (principal); I50.33 Acute on chronic diastolic (congestive) heart failure; N39.0 Urinary tract infection, site not specified; I13.0 Hypertensive heart and chronic kidney disease with heart failure and stage 1 through stage 4 chronic kidney disease, or unspecified chronic kidney disease; N18.4 Chronic kidney disease, stage 4 (severe); N17.9 Acute kidney failure, unspecified; I48.20 Chronic atrial fibrillation, unspecified; I5A Non-ischemic myocardial injury (non-traumatic); B95.2 Enterococcus as the cause of diseases classified elsewhere; S72.91XD Unspecified fracture of right femur, subsequent encounter for closed fracture with routine healing; E11.22 Type 2 diabetes mellitus with diabetic chronic kidney disease; Z20.822 Contact with and (suspected) exposure to COVID-19; I35.0 Nonrheumatic aortic (valve) stenosis; J44.9 Chronic obstructive pulmonary disease, unspecified; E11.42 Type 2 diabetes mellitus with diabetic polyneuropathy; F03.90 Unspecified dementia, unspecified severity, without behavioral disturbance, psychotic disturbance, mood disturbance, and anxiety; K21.9 Gastro-esophageal reflux disease without esophagitis; G47.33 Obstructive sleep apnea (adult) (pediatric); M81.0 Age-related osteoporosis without current pathological fracture; R91.8 Other nonspecific abnormal finding of lung field; D63.8 Anemia in other chronic diseases classified elsewhere; X58.XXXD Exposure to other specified factors, subsequent encounter; Z95.2 Presence of prosthetic heart valve; Z79.01 Long term (current) use of anticoagulants; Z89.611 Acquired absence of right leg above knee; Z95.0 Presence of cardiac pacemaker
CPT/HCPCS: 36415; 36569; 36600; 51701; 71045; 80053; 81001; 82375; 82805; 82948; 83050; 83605; 83880; 84484; 85025; 85610; 85730; 86140; 87040; 87077; 87086; 87088; 87186; 93005; 96361; 96365; 96375; 97162; 97166; 99285; A9270; C1751; C8929; C9803; G0378; J0131; J0743; J1815; J1940; J1956; J2997; J7030; J7040; Q9957; U0003; U0005

== ENCOUNTER 2021-10-26 12:50 | Inpatient (IN) | payer MEDICARE, OTHER, MEDICAID, SELFPAY ==
[2021-10-26] VITALS (62 sets, daily range): BP systolic 104–156; BP diastolic 42–74; PULSE 70–153; RESP 15–29; TEMP 37.7; O2SAT 95–100
--- NOTE | ~2021-10-26 | CT_ITS ---
EXAMINATION: CTA chest PE protocol DATE: 10/26/2021 17:39 RISK MGR INDICATION: Hypoxia TECHNIQUE: Computed tomographic angiography (CTA) of the chest was performed with 100 mL Omnipaque-35 0 intravenous contrast. The dose-length product was 505.64 mGy-cm. Maximum intensity projection 3D-re constructions of the aorta and other arteries were constructed by the technologist on a separate work station. Automated exposure control and iterative reconstruction technique were employed. COMPARISON: None. FINDINGS: Pulmonary arteries are enlarged with normal contrast opacification. There is attenuation of the pulmonary arteries peripherally suggesting pulmonary hypertension. Moderate cardiomegaly. There is atherosclerosis of the aorta. There are pacemaker leads. Small right pleural effusion. No central filling defects to suggest pulmonary embolism. No thoracic lymphadenopathy. There is patchy groundgla ss opacification throughout both lungs, consistent with pneumonia. No endobronchial lesions. There ar e hypodense lesions of both kidneys, most likely cysts. Status post cholecystectomy. There is extensi ve atherosclerosis of the abdomen. There are wedge compression fractures of T6 since T7, likely chron ic. There is moderate multilevel thoracic spondylosis. No pneumothorax identified. IMPRESSION: 1. No evidence for pulmonary embolism. Pulmonary arterial hypertension. 2: Patchy groundglass opacities of both lungs, compatible with pneumonia. 3: Small right pleural effusion. 4: Moderate cardiomegaly. Reviewed, dictated and finalized at location A. MGR
--- NOTE | ~2021-10-26 | XR_ITS ---
EXAMINATION: XR chest 2V DATE: 10/26/2021 14:12 INDICATION: Shortness of breath. TECHNIQUE: Frontal and lateral views of the chest were obtained. COMPARISON: Chest 2 views 10/13/2021, 04/30/2021, 10/09/2021 FINDINGS: The lung volumes are normal. There is a diffuse interstitial pattern in the lungs. No pleur al effusion or pneumothorax. Cardiomegaly is noted. There are changes of heart valve replacement. The re is a left chest wall pacer with leads in the right atrium and right ventricle. Surgical clips in t he right upper quadrant are likely from cholecystectomy. IMPRESSION: 1. Recurrent versus chronic diffuse interstitial pattern in the lungs, consistent with mild pulmonary edema and/or chronic interstitial lung disease. 2. Cardiomegaly. Reviewed, dictated and finalized at location A. ING TECHNICIAN IMPRESSION: 1. Recurrent versus chronic diffuse interstitial pattern in the lungs, consiste nt with mild pulmonary edema and/or chronic interstitial lung disease. 2. Cardiomegaly.
--- NOTE | ~2021-10-26 | CT_ITS ---
EXAMINATION: CT brain wo con DATE: 10/26/2021 14:08 INDICATION: Altered mental status. TECHNIQUE: Computed tomography (CT) of the head was performed without intravenous contrast. The mA wa s adjusted according to patient size. Iterative reconstruction technique was employed. The dose-lengt h product was 605.33 mGy-cm. COMPARISON: None FINDINGS: There is a small old infarct in left cerebellum. There are small old infarcts in right lent iform nucleus and posterior limb right internal capsule. There are scattered areas of low attenuation in the cerebral white matter. There is a 2.0 x 1.5 x 0.8 cm calcified extra-axial mass at planum sph enoidale, consistent with a meningioma. There is no acute ischemic infarct or intracranial hemorrhage . The ventricles are normal in size. There are likely changes of ocular lens replacement surgeries. T here is mild mucosal thickening in the paranasal sinuses. The mastoid air cells are normal. IMPRESSION: 1. 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 2. Moderate nonspecific cerebral white matter disease, which likely represents chronic small vessel i schemic disease. 3. 2.0 cm calcified extra-axial mass at the planum sphenoidale, consistent with a meningioma. Reviewed, dictated and finalized at location A. ACIC SURGEON IMPRESSION: 1. 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 2. Moderate nonspecific cerebral white matter disease, which likely represents chronic small vessel ischemic disease. 3. 2.0 cm calcified extra-axial mass at the planum sphenoidale, consistent with a meningioma.
--- NOTE | 2021-10-26 13:00 | PC.NURSE ---
Pt presented with redness to her bottom and vaginal area, pt complains of irritation, pt presents with redness to the folds from depends/diaper
--- NOTE | 2021-10-26 13:22 | ECG_ITS ---
Measurements Intervals Tower Rate: 70 P: UT: 0 QRS: 13 QRSD: 172 T: 83 QT: 439 QTc: 474 Interpretive Statements ELECTRONIC VENTRICULAR PACEMAKER WITH INHIBITION UNDERLYING ATRIAL FLUTTER/TACHYCARDIA ST-T WAVE ABNORMALITY IN ANTEROLATERAL LEADS- CONSIDER ISCHEMIA BASELINE ARTIFACT- I, II, III, AVR, AVL, AVF, V1-V6 NO FURTHER INTERPRETATION IS POSSIBLE ABNORMAL ECG Electronically Signed On 10-26-2021 13:50:25 DAYCARE TEACHER by David Reyes D.O.
--- NOTE | 2021-10-26 13:28 | ED.GENADULT ---
HPI - General Adult General Chief complaint: Shortness of Breath/Dyspnea <Pattie Guo MD - Last Filed: 10/31/21 12:27> Stated complaint: low o2 sats <Pattie Guo MD - Last Filed: 10/31/21 12:27> Time Seen by Provider: 10/26/21 18:18 <Pattie Guo MD - Last Filed: 10/31/21 12:27> Source: patient and RN notes reviewed <Pattie Guo MD - Last Filed: 10/31/21 12:27> History of Present Illness HPI narrative: Patient is a 81 y/o sent here for hypoxia. She reportedly had pulse ox of 90% on RA. There is no known alleviating or exacerbating factor. She states that she does not feel SOB. She has no cough or chest pain. She complains of phantom limb pain on left leg. <Pattie Guo MD - Last Filed: 10/31/21 12:27> Related Data Home medications: Home Medications Medication Instructions Recorded Confirmed Movantik 12.5 mg PO QAM 04/28/21 10/27/21 furosemide 20 mg PO BID 04/28/21 10/27/21 gabapentin 300 mg PO TID 04/28/21 10/27/21 insulin lispro See Rx Instructions .ROUTE .COMPLEX 04/28/21 10/27/21 metoprolol succinate 50 mg PO DAILY 04/28/21 10/27/21 mirtazapine 15 mg PO HS 04/28/21 10/27/21 pantoprazole 40 mg PO BID 04/28/21 10/27/21 sennosides 8.6 mg PO BID PRN 04/28/21 10/27/21 Benefiber Clear SF (dextrin) 1 packet PO DAILY 10/09/21 10/27/21 Multiple Vitamin-Minerals 1 tablet PO DAILY 10/09/21 10/27/21 acetaminophen 1,000 mg PO Q8H PRN 10/09/21 10/27/21 albuterol sulfate [ProAir HFA] 1 puff INHALATION Q6H PRN 10/09/21 10/27/21 artificial tears solution 1 drp OPHTHALMIC (EYE) BID 10/09/21 10/27/21 calcium citrate-vitamin D3 1 tablet PO BID 10/09/21 10/27/21 ferrous sulfate 325 mg PO BID 10/09/21 10/27/21 ipratropium-albuterol See Rx Instructions .ROUTE 10/09/21 10/27/21 .COMPLEX PRN melatonin 5 mg PO HS PRN 10/09/21 10/27/21 oxycodone 20 mg PO Q12H 10/09/21 10/27/21 polyethylene glycol 3350 17 g PO DAILY PRN 10/09/21 10/27/21 sodium chloride [Deep Sea Nasal] 1 spray INTRANASAL Q2H PRN 10/09/21 10/27/21 silver sulfadiazine See Rx Instructions .ROUTE .COMPLEX 10/27/21 10/27/21 tramadol 50 mg PO TID PRN 10/27/21 10/27/21 warfarin 2.5 mg PO DAILY 10/27/21 10/27/21 <Pattie Guo MD - Last Filed: 10/31/21 12:27> Allergies/adverse reactions: Allergies Allergy/AdvReac Type Severity Reaction Status Date / Time levorphanol AdvReac Itching Verified 10/27/21 09:50 Penicillins AdvReac Itching Verified 10/27/21 09:50 vancomycin AdvReac Itching Verified 10/27/21 09:50 <Pattie Guo MD - Last Filed: 10/31/21 12:27> Review of Systems Constitutional: Constitutional: Denies chills, Denies fever(s), Denies headache(s) and Denies weakness <Pattie Guo MD - Last Filed: 10/31/21 12:27> Eyes: Eyes: Denies blurry vision <Pattie Guo MD - Last Filed: 10/31/21 12:27> ENT: Denies headache(s) and Denies neck pain <Pattie Guo MD - Last Filed: 10/31/21 12:27> Cardiovascular: Cardiovascular: Denies chest pain and Denies dyspnea <Pattie Guo MD - Last Filed: 10/31/21 12:27> Respiratory: Respiratory: Denies cough and Denies dyspnea <Pattie Guo MD - Last Filed: 10/31/21 12:27> Gastrointestinal: Gastrointestinal: Denies abdominal pain, Denies diarrhea, Denies nausea and Denies vomiting <Pattie Guo MD - Last Filed: 10/31/21 12:27> Genitourinary: Genitourinary: Denies hematuria and Denies dysuria <Pattie Guo MD - Last Filed: 10/31/21 12:27> Musculoskeletal: Musculoskeletal: Reports as per HPI, Denies back pain, Denies neck pain and Reports other (left leg pain) <Pattie Guo MD - Last Filed: 10/31/21 12:27> Neurologic: Denies headache(s) and Denies weakness <Pattie Guo MD - Last Filed: 10/31/21 12:27> [facility] Past Medical History Medical History: Medical History Aortic valve stenosis Chronic anemia Chronic constipation Chronic diastolic heart failure Chronic kidney disease, stage 4 (severe) COPD
[2021-10-26 14:08] LABS: Basophils Absolute Auto 0.1 K/mm3 (0.0-0.1); Basophils Percent Auto 0.5 % (0.2-1.2); Eosinophils Percent Auto 0.2 % (0-4.4); Hemoglobin 10.9 g/dL (12.0-15.0); Immature Granulocyte Absolute 0.08 K/mm3 (0.00-0.031); Immature Granulocyte Percent A 0.6 % (0-0.5); Lymphocytes Absolute Auto 0.84 K/mm3 (0.9-3.2); Lymphocytes Percent Auto 6.5 % (18.3-44.2); Mean Corpuscular HGB Conc 31.1 g/dl (32-36); Mean Corpuscular Hemoglobin 27.7 pg (26-34); Mean Corpuscular Volume 89.1 fl (80-100); Mean Platelet Volume 9.6 fl (7.4-10.4); Monocytes Absolute Auto 0.7 K/mm3 (0.1-0.6); Monocytes Percent Auto 5.8 % (2.6-8.5); Neutrophils Absolute Auto 11.1 K/mm3 (1.3-6.7); Neutrophils Percent Auto 86.4 % (45.5-73.1); Platelet Count Result 300 k/mm3 (150-375); Red Blood Count 3.93 M/mm3 (4.2-5.4); Red Cell Distribution Width 19.4 % (11.5-14.5); White Blood Count 12.9 K/mm3 (4.5-10.0)
[2021-10-26 14:22] LABS: D Dimer 1.68 ug/mL (<0.48)
[2021-10-26 14:25] LABS: Alanine Aminotransferase 22 U/L (4-35); Albumin Level 3.9 g/dL (3.5-5.1); Alkaline Phosphatase 123 U/L (38-126); Anion Gap 2 mmol/L (8-16); Aspartate Amino Transferase 39 U/L (14-36); Bilirubin,Total 0.6 mg/dL (0.2-1.3); Blood Urea Nitrogen 27 mg/dL (7-17); Calcium 8.9 mg/dL (8.4-10.2); Carbon Dioxide 33 mmol/L (22-30); Chloride 93 mmol/L (98-107); Estimated CRCL calculation 29 ml/min; Estimated Glomerular Filt Rate 43; Glucose 145 mg/dL (65-110); Potassium 5.2 mmol/L (3.4-5.0); Sodium 128 mmol/L (137-145)
[2021-10-26 14:30] LABS: NT Pro B Type Natriuretic Pept 5460 pg/mL (5-100)
[2021-10-26 15:58] LABS: Add Urine Microscopic? YES; Appearance Urine Clear (Clear); Bilirubin Urine Negative (Negative); Blood Urine Negative (Negative); Color Urine Yellow (Yellow); Glucose Urine UA Negative (Negative); Ketones Urine Negative (Negative); Leukocyte Esterase Ur Negative LEU/UL (Negative); Nitrate Urine Negative (Negative); Protein Urine 2+ mg/dL (Negative); RBC Urine 0-2 /hpf (0-2); Specific Grav Ur 1.013 (1.001-1.035); Squamous Epithelial Cell Urine Rare /hpf (Few); Urobilinogen Urine Negative mg/dL (<2.0)
--- NOTE | 2021-10-26 17:25 | PC.NURSE ---
Ordered barrier cream from 2nd floor
[2021-10-26] MEDS: SODIUM CHLORIDE 0.9% IV 1,000 ML 999 ML IV CONT (17:46)
--- NOTE | 2021-10-26 19:38 | PC.NURSE ---
assumed care of patient covid swab sent to lab
[2021-10-26] MEDS: FLUCONAZOLE 100 MG/NACL 50 ML 100 MG/50 ML BTL 50 MG IVPB (22:30)
[2021-10-27] VITALS (26 sets, daily range): BP systolic 109–178; BP diastolic 55–74; PULSE 69–77; RESP 16–24; TEMP 36.5–36.7; O2SAT 93–100; BMI 23.3
--- NOTE | 2021-10-27 01:16 | PM.IMHP ---
H&P: HPI History of Present Illness Date/Time: 10/27/21 01:16 Chief Complaint: Weakness Narrative: Patient is a 81-year-old female who is sent here from [facility] due to hypoxia with reported pulse oximetry on room air at 80 %. She was working with physical therapy in the evening and when she came back from physical therapy she was noted to have an episode of altered mental status. The staff checked her oxygen level and was noted to be in 80s. They applied oxygen with improvement in her saturation. She checked her glucose was normal. Staff came back later later again and was found to have saturation reading in 70s and hence her oxygen was increased to 4 L. EMS noted patient to be in no distress and speaking [place] place sentences. Patient had initial saturation reading with finger probe which had red fingernail Moncho this. Saturation monitor was moved right earlobe with readings immediately improved in upper 90s. She was then brought to the ER for evaluation. She is a poor historian and does not answer questions as much. She states she is doing okay with no cough or shortness of breath or chest pain. She had chronic wound in her foot due to wearing some kind of boots in the past is following with wound care. She is also left knee and above knee amputation. She denies any fever or chills nausea vomiting chest pain shortness of breath abdominal pain diarrhea. She was recently discharged on 10/15/2021 after admission for similar concerns Review of Systems Review of Systems: - CONSTITUTIONAL: Denies weight loss, fever and chills. - HEENT: Denies changes in vision and hearing - RESPIRATORY: Denies SOB and cough. - CV: Denies palpitations and CP. - GI: Denies abdominal pain, nausea, vomiting and diarrhea. - : Denies dysuria and urinary frequency. - MSK: Denies myalgia and joint pain. - SKIN: Denies rash and pruritus. - NEUROLOGICAL: Denies headache and syncope. - PSYCHIATRIC: Denies recent changes in mood. Denies anxiety and depression. All systems reviewed & are unremarkable except as noted in HPI and below Constitutional: Constitutional: Reports fatigue and Reports weakness Neurologic: Reports weakness Endocrine: Endocrine: Reports fatigue PMFSH Past Medical History Medical History Aortic valve stenosis Chronic anemia Chronic constipation Chronic diastolic heart failure Chronic kidney disease, stage 4 (severe) COPD (chronic obstructive pulmonary disease) Dementia Depression Diabetes Diabetic neuropathy GERD (gastroesophageal reflux disease) History of atrial fibrillation Hypertension Obstructive sleep apnea Osteoporosis Vitamin D deficiency Surgical History Surgical History H/O prosthetic heart valve History of hip surgery History of left above knee amputation Pacemaker Due to sick sinus syndrome Family History Family History Other Unknown family medical history Social History Social History Social History: Resides at [facility] [place]. Code status: Full code Decision maker: Gay Kaplanmaryana (daughter) Smoking status: Unknown if ever smoked Alcohol intake: unknown Substance use: unknown Spiritual care concerns: No Meds Home Medications and Allergies Home Medications Medication Instructions Recorded Confirmed Type Movantik 12.5 mg PO QAM 04/28/21 10/09/21 History furosemide 20 mg PO BID 04/28/21 10/09/21 History gabapentin 300 mg PO TID 04/28/21 10/09/21 History insulin lispro See Rx Instructions .ROUTE .COMPLEX 04/28/21 10/09/21 History metoprolol succinate 50 mg PO DAILY 04/28/21 10/09/21 History mirtazapine 15 mg PO HS 04/28/21 10/09/21 History pantoprazole 40 mg PO BID 04/28/21 10/09/21 History sennosides 8.6 mg PO BID PRN 04/28/21 10/09/21
[2021-10-27 05:23] LABS: Glucose Point of Care 116 mg/dl (65-105)
--- NOTE | 2021-10-27 05:53 | PC.NURSE ---
dry diaper applied
[2021-10-27 06:32] LABS: Basophils Absolute Auto 0.1 K/mm3 (0.0-0.1); Basophils Percent Auto 0.6 % (0.2-1.2); Eosinophils Absolute Auto 0.1 K/mm3 (0-0.3); Eosinophils Percent Auto 0.7 % (0-4.4); Hematocrit 35.4 % (37.0-47.0); Hemoglobin 10.7 g/dL (12.0-15.0); Immature Granulocyte Absolute 0.05 K/mm3 (0.00-0.031); Immature Granulocyte Percent A 0.6 % (0-0.5); Lymphocytes Absolute Auto 0.75 K/mm3 (0.9-3.2); Lymphocytes Percent Auto 9.2 % (18.3-44.2); Mean Corpuscular HGB Conc 30.2 g/dl (32-36); Mean Corpuscular Hemoglobin 26.7 pg (26-34); Mean Corpuscular Volume 88.3 fl (80-100); Mean Platelet Volume 9.5 fl (7.4-10.4); Monocytes Absolute Auto 0.6 K/mm3 (0.1-0.6); Monocytes Percent Auto 7.1 % (2.6-8.5); Neutrophils Absolute Auto 6.7 K/mm3 (1.3-6.7); Neutrophils Percent Auto 81.8 % (45.5-73.1); Platelet Count Result 276 k/mm3 (150-375); Red Blood Count 4.01 M/mm3 (4.2-5.4); Red Cell Distribution Width 19.6 % (11.5-14.5); White Blood Count 8.2 K/mm3 (4.5-10.0)
[2021-10-27 06:42] LABS: Alanine Aminotransferase 21 U/L (4-35); Albumin Level 3.4 g/dL (3.5-5.1); Alkaline Phosphatase 114 U/L (38-126); Anion Gap 7 mmol/L (8-16); Aspartate Amino Transferase 36 U/L (14-36); Bilirubin,Total 0.5 mg/dL (0.2-1.3); Blood Urea Nitrogen 26 mg/dL (7-17); Calcium 8.8 mg/dL (8.4-10.2); Carbon Dioxide 29 mmol/L (22-30); Chloride 99 mmol/L (98-107); Estimated CRCL calculation 26 ml/min; Estimated Glomerular Filt Rate 39; Glucose 127 mg/dL (65-110); Lactic Acid Reflex 1.4 mmol/L (0.7-2.1); Potassium 4.5 mmol/L (3.4-5.0); Sodium 135 mmol/L (137-145)
[2021-10-27 07:01] LABS: INR 2.7; Prothrombin Time 28.3 Seconds (11.1-14.7)
[2021-10-27 07:08] LABS: CRP 14.7 mg/dL (<1.0)
[2021-10-27 09:03] LABS: EDCOVIDSCREEN Negative (Negative)
--- NOTE | 2021-10-27 10:55 | ADMGEN ---
This patient, Nadege Bryan, was admitted to 3 [facility] Surg Room 330-01. Patient oriented to hospital policies and general routines including ID bracelet, bed and alarms, visiting hours, pain management, procedures, bathroom and other care routines, personal items, smoking policy, room service/diet, and visiting hours. Report taken from Cat in ER. Information on how to activate the Rapid Response Team has been discussed. Patient are encouraged to report perceived risks to care and to ask questions if they do not understand what they are told or what they should do.
--- NOTE | 2021-10-27 11:04 | PC.NURSE ---
SPOKE WITH ERNIE DAUGHTER OF PT AND LET HER KNOW THAT HER MOTHER WAS ADMITTED TO [facility]
[2021-10-27 11:37] LABS: Glucose Point of Care 113 mg/dl (65-105)
[2021-10-27 14:30] LABS: SARS-CoV-2 RNA PCR Negative
[2021-10-27 16:51] LABS: Glucose Point of Care 178 mg/dl (65-105)
[2021-10-27] MEDS: SILVERGEL (ELTA) 45 ML 1 APPLIC TOPICAL (18:30)
[2021-10-27 21:37] LABS: Glucose Point of Care 106 mg/dl (65-105)
[2021-10-28 00:40] VITALS: O2SAT 95
[2021-10-28] MEDS: oxyCODONE HCL (*CRX) 20 MG TAB SR 12HR PO ×2 (04:35→20:53)
[2021-10-28 06:00] VITALS: BP 162/69; PULSE 79; RESP 20; TEMP 36.3; O2SAT 98
[2021-10-28 07:21] LABS: INR 3.6
[2021-10-28 08:42] LABS: Glucose Point of Care 148 mg/dl (65-105)
[2021-10-28] MEDS: SILVERGEL (ELTA) 45 ML 1 APPLIC TOPICAL (09:19)
[2021-10-28] MEDS: traMADol HCL (*CRX) 50 MG TABLET PO (09:26)
[2021-10-28 09:27] VITALS: PULSE 80
[2021-10-28] MEDS: SODIUM BICARBONATE TAB 650 MG TABLET PO ×2 (09:27→16:42)
[2021-10-28] MEDS: FUROSEMIDE 20 MG TABLET PO (09:27)
[2021-10-28] MEDS: FERROUS SULFATE 324 MG TABLET PO ×2 (09:27→16:42)
[2021-10-28] MEDS: THERAPEUTIC MULTIVITAMINS/MINERALS TAB (*BKC) 1 TABLET PO (09:27)
[2021-10-28] MEDS: ARTIFICIAL TEARS OPHTH SOLN 15 ML BOTTLE 1 DROP RIGHT EYE (09:27)
[2021-10-28] MEDS: PANTOPRAZOLE 40 MG TABLET PO ×2 (09:27→16:42)
[2021-10-28] MEDS: METOPROLOL SUCCINATE EXT REL 50 MG TABCR PO (09:27)
[2021-10-28] MEDS: GABAPENTIN 300 MG CAPSULE PO ×3 (09:27→16:42)
--- NOTE | 2021-10-28 09:55 | PM.IMPN ---
Progress Note: A&P Assessment and Plan (1) AMS (altered mental status): Qualifiers: Altered mental status type: disorientation Qualified Code(s): R41.0 - Disorientation, unspecified Code(s): R41.82 - Altered mental status, unspecified Status: Acute (2) Hypoxia: Code(s): R09.02 - Hypoxemia Status: Acute (3) Unilateral AKA: Code(s): S78.119A - Complete traumatic amputation at level between unspecified hip and knee, initial encounter Status: Acute (4) Lung infiltrate: Code(s): R91.8 - Other nonspecific abnormal finding of lung field Status: Acute (5) Chronic diastolic heart failure: Code(s): I50.32 - Chronic diastolic (congestive) heart failure Status: Acute (6) Aortic valve stenosis: Code(s): I35.0 - Nonrheumatic aortic (valve) stenosis Status: Acute (7) H/O prosthetic heart valve: Code(s): Z95.2 - Presence of prosthetic heart valve Status: Acute (8) Anemia: Code(s): D64.9 - Anemia, unspecified Status: Acute (9) Dementia: Code(s): F03.90 - Unspecified dementia without behavioral disturbance Status: Acute Additional Plan # altered mental status: Head CT with old infarcts and cerebral white matter disease and 2.0 cm extra-axial mass consistent with meningioma. Noted to be hypoxic which could relate to her and altered mental status. Continue to monitor. PT OT evaluate and treat # hypoxia is unclear whether it is real hypoxia versus technical issue with SpO2 monitor.. Currently on 2 L oxygen supplementation. Does not complain of shortness of breath per se. Chest x-ray with recurrent versus chronic diffuse interstitial pattern in the lungs consistent with mild pulmonary edema and or or chronic interstitial lung disease along with cardiomegaly noted. Comparatively this looks much better than recent chest x-ray. COVID swab in the ED await resolves. Treat for with antibiotics for healthcare associated pneumonia due to recent admission with cefepime, allergy to vancomycin. So will hold off on MRSA coverage no prior history of MRSA detection in the past as well. Was recently treated with doxycycline for atypicals not too long ago. # bilateral pneumonia possible COVID cover for bacterial pneumonia check procalcitonin and determine further antibiotic course # hyponatremia mild 128 continue to monitor BNP is elevated at 5460 continue gentle diuresis with monitoring of sodium level # D-dimer elevated CTA negative for PE # chronic diastolic heart failure not overtly decompensated continues gentle diuretic home doses # chronic kidney disease stage III creatinine stable continue to monitor # left AKA status # diabetic neuropathy home medication # chronic ulcers on right foot wound care to see # chronic anemia stable counts # GERD home medication # right femur fracture status post ORIF # obstructive sleep apnea # aortic valve stenosis # history of recurrent UTI UA is unremarkable except for few pus cells but much better than previous UA # history of prostatic heart valve on Coumadin monitor INR regularly # disposition PT OT to see # dementia # diabetes type 2 # atrial fibrillation # DVT prophylaxis on Coumadin monitor INR # full code status 10/28/2021 Lotrisone cream for fungal infection Continue home pain medication regimen Altered mental status has resolved patient is now a x3 Patient has history of COVID pneumonia and on each repeat imaging study has been told she has COVID per daughter this is chronic and unchanged Patient with PAD of the right lower extremity with chronic ulcers nonhealing is supposed to go for revascularization soon Pending return of procalcitonin Subjective Date/time seen: 10/28/21 09:55 Patient doing case that she is feeling lot better now comfortable on room air Long conversation with her daughter we review patient's fungal infection and plan of care as well as her chronic pain m
--- NOTE | 2021-10-28 11:07 | PCOTNOTE ---
Pt refused OT evaluation this date at 11:00 AM. Pt stated that she did not sleep well and had to wait until this morning for any pain medication. Stated that she would be willing to complete OT evaluation tomorrow (10/29). Nursing aware.
[2021-10-28 12:13] LABS: Glucose Point of Care 142 mg/dl (65-105)
[2021-10-28] MEDS: amLODIPine BESYLATE 5 MG TABLET PO (12:57)
[2021-10-28 14:00] VITALS: BP 148/69; PULSE 70; RESP 14; TEMP 36.2; O2SAT 97
[2021-10-28] MEDS: FUROSEMIDE 40 MG TABLET PO (16:42)
[2021-10-28 17:10] LABS: Glucose Point of Care 172 mg/dl (65-105)
[2021-10-28 20:24] LABS: Glucose Point of Care 164 mg/dl (65-105)
[2021-10-28] MEDS: MIRTAZAPINE 15 MG TABLET PO (20:53)
[2021-10-28] MEDS: BETAMETHASONE/CLOTRIMAZOLE CR 45 GM TUBE 1 APPLIC TOPICAL (20:54)
[2021-10-28 21:15] VITALS: BP 157/61; PULSE 81; RESP 17; TEMP 37.1; O2SAT 98
[2021-10-29 04:00] VITALS: BP 113/50; PULSE 70; RESP 18; TEMP 36.3; O2SAT 95
[2021-10-29 08:09] LABS: INR 2.2; Prothrombin Time 23.9 Seconds (11.1-14.7)
[2021-10-29 08:17] LABS: Glucose Point of Care 112 mg/dl (65-105)
[2021-10-29 09:32] VITALS: PULSE 70
[2021-10-29] MEDS: ZINC OXIDE 20% OINT 30 GM TUBE 1 APPLIC TOPICAL (09:32)
[2021-10-29] MEDS: SODIUM BICARBONATE TAB 650 MG TABLET PO ×2 (09:32→17:34)
[2021-10-29] MEDS: GABAPENTIN 300 MG CAPSULE PO ×3 (09:32→17:33)
[2021-10-29] MEDS: THERAPEUTIC MULTIVITAMINS/MINERALS TAB (*BKC) 1 TABLET PO (09:32)
[2021-10-29] MEDS: SILVERGEL (ELTA) 45 ML 1 APPLIC TOPICAL (09:32)
[2021-10-29] MEDS: METOPROLOL SUCCINATE EXT REL 50 MG TABCR PO (09:32)
[2021-10-29] MEDS: PANTOPRAZOLE 40 MG TABLET PO ×2 (09:33→17:35)
[2021-10-29] MEDS: oxyCODONE HCL (*CRX) 20 MG TAB SR 12HR PO ×2 (09:33→20:40)
[2021-10-29] MEDS: ARTIFICIAL TEARS OPHTH SOLN 15 ML BOTTLE 1 DROP RIGHT EYE ×2 (09:33→17:32)
[2021-10-29] MEDS: FERROUS SULFATE 324 MG TABLET PO ×2 (09:33→17:33)
[2021-10-29] MEDS: amLODIPine BESYLATE 5 MG TABLET PO (09:33)
[2021-10-29] MEDS: FUROSEMIDE 40 MG TABLET PO ×2 (09:33→17:33)
[2021-10-29] MEDS: BETAMETHASONE/CLOTRIMAZOLE CR 45 GM TUBE 1 APPLIC TOPICAL ×2 (09:34→22:26)
--- NOTE | 2021-10-29 09:36 | PCOTNOTE ---
Attempted to see pt. 2x this am, pt. refused to participate in evaluation
[2021-10-29 12:05] LABS: Glucose Point of Care 167 mg/dl (65-105)
--- NOTE | 2021-10-29 13:18 | PCNFU ---
Nutrition Follow-Up Complete: Inadequte oral intake related to COVID and wounds as evidenced by reported intake of 0% and right toe ulcer x2, right lateral foot pressure ulcer, and right heel pressure ulcer Goal: Meet nutritional needs Pt is moderately progressing towards goal. Pt current nutrition is regular diet and dietary supplement. Last recorded weight is 63.5 kg. Bowel Motility: LBM 10/26 Labs Reviewed: PT 23.9, Glu 112 Meds Noted: norvasc, calcitrate + vit D, ferrous sulfate, lasix, neurontin, toprol xl, protonix, sodium bicarbonate Skin: Right toe x2 pressure ulcer, right lateral foot and right heel pressure ulcer Additional Notes: Unable to visit with pt. Spoke to nursing who reports that pt appetite varies. Per EMR, pt is on a regular diet and dietary supplement of ensure compact BID to providing an additional 220kcal and 9g of protein. Per EMR, reported intake is 25%, 50%, 75%. RDN added orders to switch ensure compact BID to TID to add additional kcals and protein to aid in wound healing. Agree with current diet orders. Will continue to follow. Monitor labs, wt, medications, and intake every 3 days
[2021-10-29 15:14] VITALS: PULSE 84; RESP 18; O2SAT 95
[2021-10-29] MEDS: WARFARIN (*PBKC) 2.5 MG TABLET PO (17:34)
[2021-10-29] MEDS: LUBIPROSTONE 24 MCG CAPSULE PO (17:35)
[2021-10-29 17:39] LABS: Glucose Point of Care 132 mg/dl (65-105)
--- NOTE | 2021-10-29 20:15 | PM.IMPN ---
Progress Note: A&P Assessment and Plan (1) AMS (altered mental status): Qualifiers: Altered mental status type: disorientation Qualified Code(s): R41.0 - Disorientation, unspecified Code(s): R41.82 - Altered mental status, unspecified Status: Acute (2) Hypoxia: Code(s): R09.02 - Hypoxemia Status: Acute (3) Unilateral AKA: Code(s): S78.119A - Complete traumatic amputation at level between unspecified hip and knee, initial encounter Status: Acute (4) Lung infiltrate: Code(s): R91.8 - Other nonspecific abnormal finding of lung field Status: Acute (5) Chronic diastolic heart failure: Code(s): I50.32 - Chronic diastolic (congestive) heart failure Status: Acute (6) Aortic valve stenosis: Code(s): I35.0 - Nonrheumatic aortic (valve) stenosis Status: Acute (7) H/O prosthetic heart valve: Code(s): Z95.2 - Presence of prosthetic heart valve Status: Acute (8) Anemia: Code(s): D64.9 - Anemia, unspecified Status: Acute (9) Dementia: Code(s): F03.90 - Unspecified dementia without behavioral disturbance Status: Acute Additional Plan # altered mental status: Head CT with old infarcts and cerebral white matter disease and 2.0 cm extra-axial mass consistent with meningioma. Noted to be hypoxic which could relate to her and altered mental status. Continue to monitor. PT OT evaluate and treat # hypoxia is unclear whether it is real hypoxia versus technical issue with SpO2 monitor.. Currently on 2 L oxygen supplementation. Does not complain of shortness of breath per se. Chest x-ray with recurrent versus chronic diffuse interstitial pattern in the lungs consistent with mild pulmonary edema and or or chronic interstitial lung disease along with cardiomegaly noted. Comparatively this looks much better than recent chest x-ray. COVID swab in the ED await resolves. Treat for with antibiotics for healthcare associated pneumonia due to recent admission with cefepime, allergy to vancomycin. So will hold off on MRSA coverage no prior history of MRSA detection in the past as well. Was recently treated with doxycycline for atypicals not too long ago. # bilateral pneumonia possible COVID cover for bacterial pneumonia check procalcitonin and determine further antibiotic course # hyponatremia mild 128 continue to monitor BNP is elevated at 5460 continue gentle diuresis with monitoring of sodium level # D-dimer elevated CTA negative for PE # chronic diastolic heart failure not overtly decompensated continues gentle diuretic home doses # chronic kidney disease stage III creatinine stable continue to monitor # left AKA status # diabetic neuropathy home medication # chronic ulcers on right foot wound care to see # chronic anemia stable counts # GERD home medication # right femur fracture status post ORIF # obstructive sleep apnea # aortic valve stenosis # history of recurrent UTI UA is unremarkable except for few pus cells but much better than previous UA # history of prostatic heart valve on Coumadin monitor INR regularly # disposition PT OT to see # dementia # diabetes type 2 # atrial fibrillation # DVT prophylaxis on Coumadin monitor INR # full code status 10/28/2021 Lotrisone cream for fungal infection Continue home pain medication regimen Altered mental status has resolved patient is now a x3 Patient has history of COVID pneumonia and on each repeat imaging study has been told she has COVID per daughter this is chronic and unchanged Patient with PAD of the right lower extremity with chronic ulcers nonhealing is supposed to go for revascularization soon Pending return of procalcitonin 10/29/2021 Continue Lotrisone anti fungal cream Continue home medications Pending results of procalcitonin exam I have called the laboratory twice today trying to expedite this lab results because it is critically important to patient's ap
[2021-10-29] MEDS: MIRTAZAPINE 15 MG TABLET PO (20:40)
[2021-10-29 21:00] LABS: Anion Gap 9 mmol/L (8-16); Blood Urea Nitrogen 21 mg/dL (7-17); Calcium 8.9 mg/dL (8.4-10.2); Carbon Dioxide 24 mmol/L (22-30); Chloride 96 mmol/L (98-107); Estimated CRCL calculation 34 ml/min; Estimated Glomerular Filt Rate 53; Glucose 191 mg/dL (65-110); Potassium 4.1 mmol/L (3.4-5.0); Sodium 129 mmol/L (137-145)
[2021-10-29 21:58] VITALS: BP 137/62; PULSE 72; RESP 16; TEMP 37.9; O2SAT 95
[2021-10-29 22:03] VITALS: TEMP 37.9
[2021-10-29] MEDS: ACETAMINOPHEN 500 MG TABLET 1000 MG PO (22:03)
[2021-10-29 23:02] LABS: Glucose Point of Care 189 mg/dl (65-105)
[2021-10-30 05:29] VITALS: BP 151/71; PULSE 70; RESP 18; TEMP 36.8; O2SAT 99
[2021-10-30 06:58] LABS: Basophils Percent Auto 0.3 % (0.2-1.2); Eosinophils Absolute Auto 0.1 K/mm3 (0-0.3); Hematocrit 30.7 % (37.0-47.0); Hemoglobin 9.4 g/dL (12.0-15.0); Immature Granulocyte Absolute 0.08 K/mm3 (0.00-0.031); Immature Granulocyte Percent A 0.6 % (0-0.5); Lymphocytes Absolute Auto 1.52 K/mm3 (0.9-3.2); Mean Corpuscular HGB Conc 30.6 g/dl (32-36); Mean Corpuscular Volume 88.2 fl (80-100); Mean Platelet Volume 10.1 fl (7.4-10.4); Monocytes Absolute Auto 0.8 K/mm3 (0.1-0.6); Monocytes Percent Auto 6.7 % (2.6-8.5); Neutrophils Percent Auto 79.4 % (45.5-73.1); Platelet Count Result 253 k/mm3 (150-375); Red Blood Count 3.48 M/mm3 (4.2-5.4); Red Cell Distribution Width 19.2 % (11.5-14.5); White Blood Count 12.6 K/mm3 (4.5-10.0)
[2021-10-30 07:13] LABS: Alanine Aminotransferase 18 U/L (4-35); Albumin Level 3.2 g/dL (3.5-5.1); Alkaline Phosphatase 93 U/L (38-126); Anion Gap 7 mmol/L (8-16); Aspartate Amino Transferase 29 U/L (14-36); Bilirubin,Total 0.4 mg/dL (0.2-1.3); Blood Urea Nitrogen 22 mg/dL (7-17); CRP 4.5 mg/dL (<1.0); Calcium 8.9 mg/dL (8.4-10.2); Carbon Dioxide 30 mmol/L (22-30); Chloride 97 mmol/L (98-107); Estimated CRCL calculation 26 ml/min; Estimated Glomerular Filt Rate 39; Glucose 139 mg/dL (65-110); Magnesium 1.8 mg/dL (1.6-2.3); Potassium 3.9 mmol/L (3.4-5.0); Sodium 134 mmol/L (137-145)
[2021-10-30 07:18] LABS: INR 1.9; Prothrombin Time 21.1 Seconds (11.1-14.7)
[2021-10-30 07:48] LABS: Erythrocyte Sedimentation Rate > 140 mm/hr (0-20)
[2021-10-30 07:59] LABS: Glucose Point of Care 121 mg/dl (65-105)
[2021-10-30 08:00] VITALS: PULSE 76; RESP 18; O2SAT 97
[2021-10-30] MEDS: ARTIFICIAL TEARS OPHTH SOLN 15 ML BOTTLE 1 DROP RIGHT EYE ×2 (09:15→16:11)
[2021-10-30] MEDS: amLODIPine BESYLATE 5 MG TABLET PO (09:15)
[2021-10-30] MEDS: THERAPEUTIC MULTIVITAMINS/MINERALS TAB (*BKC) 1 TABLET PO (09:15)
[2021-10-30] MEDS: PANTOPRAZOLE 40 MG TABLET PO ×2 (09:15→16:10)
[2021-10-30] MEDS: GABAPENTIN 300 MG CAPSULE PO ×3 (09:15→16:10)
[2021-10-30] MEDS: oxyCODONE HCL (*CRX) 20 MG TAB SR 12HR PO (09:15)
[2021-10-30] MEDS: FERROUS SULFATE 324 MG TABLET PO ×2 (09:15→16:11)
[2021-10-30] MEDS: SODIUM BICARBONATE TAB 650 MG TABLET PO ×2 (09:15→16:11)
[2021-10-30 09:16] VITALS: PULSE 72
[2021-10-30] MEDS: BETAMETHASONE/CLOTRIMAZOLE CR 45 GM TUBE 1 APPLIC TOPICAL ×2 (09:16→22:50)
[2021-10-30] MEDS: METOPROLOL SUCCINATE EXT REL 50 MG TABCR PO (09:16)
[2021-10-30] MEDS: FUROSEMIDE 40 MG TABLET PO ×2 (09:16→16:11)
[2021-10-30] MEDS: LUBIPROSTONE 24 MCG CAPSULE PO ×2 (09:16→16:10)
[2021-10-30] MEDS: PSYLLIUM POWDER PACKET 1 PACKET PO (09:17)
[2021-10-30] MEDS: SILVERGEL (ELTA) 45 ML 1 APPLIC TOPICAL (09:17)
[2021-10-30] MEDS: ZINC OXIDE 20% OINT 30 GM TUBE 1 APPLIC TOPICAL (09:17)
[2021-10-30] MEDS: ACETAMINOPHEN 500 MG TABLET 1000 MG PO (10:47)
[2021-10-30 12:15] LABS: Glucose Point of Care 249 mg/dl (65-105)
[2021-10-30] MEDS: INSULIN ASPART (*BKC) 100 UNITS/ML SUB-Q (12:30)
[2021-10-30 14:00] VITALS: BP 106/63; PULSE 76; RESP 18; TEMP 36.4; O2SAT 97
[2021-10-30] MEDS: WARFARIN (*PBKC) 2.5 MG TABLET PO (16:11)
[2021-10-30 17:28] LABS: Glucose Point of Care 100 mg/dl (65-105)
--- NOTE | 2021-10-30 19:07 | PM.IMPN ---
Progress Note: A&P Assessment and Plan (1) AMS (altered mental status): Qualifiers: Altered mental status type: disorientation Qualified Code(s): R41.0 - Disorientation, unspecified Code(s): R41.82 - Altered mental status, unspecified Status: Acute Assessment and Plan: TIA versus (2) Hypoxia: Code(s): R09.02 - Hypoxemia Status: Acute Assessment and Plan: Unlikely per EMS report and patient has had no necessity for use of oxygen since admission (3) Unilateral AKA: Code(s): S78.119A - Complete traumatic amputation at level between unspecified hip and knee, initial encounter Status: Acute (4) Lung infiltrate: Code(s): R91.8 - Other nonspecific abnormal finding of lung field Status: Acute (5) Chronic diastolic heart failure: Code(s): I50.32 - Chronic diastolic (congestive) heart failure Status: Acute (6) Aortic valve stenosis: Code(s): I35.0 - Nonrheumatic aortic (valve) stenosis Status: Acute (7) H/O prosthetic heart valve: Code(s): Z95.2 - Presence of prosthetic heart valve Status: Acute (8) Anemia: Code(s): D64.9 - Anemia, unspecified Status: Acute (9) Dementia: Code(s): F03.90 - Unspecified dementia without behavioral disturbance Status: Acute Assessment and Plan: Additional Plan # altered mental status: Head CT with old infarcts and cerebral white matter disease and 2.0 cm extra-axial mass consistent with meningioma. Noted to be hypoxic which could relate to her and altered mental status. Continue to monitor. PT OT evaluate and treat # hypoxia is unclear whether it is real hypoxia versus technical issue with SpO2 monitor.. Currently on 2 L oxygen supplementation. Does not complain of shortness of breath per se. Chest x-ray with recurrent versus chronic diffuse interstitial pattern in the lungs consistent with mild pulmonary edema and or or chronic interstitial lung disease along with cardiomegaly noted. Comparatively this looks much better than recent chest x-ray. COVID swab in the ED await resolves. Treat for with antibiotics for healthcare associated pneumonia due to recent admission with cefepime, allergy to vancomycin. So will hold off on MRSA coverage no prior history of MRSA detection in the past as well. Was recently treated with doxycycline for atypicals not too long ago. # bilateral pneumonia possible COVID cover for bacterial pneumonia check procalcitonin and determine further antibiotic course # hyponatremia mild 128 continue to monitor BNP is elevated at 5460 continue gentle diuresis with monitoring of sodium level # D-dimer elevated CTA negative for PE # chronic diastolic heart failure not overtly decompensated continues gentle diuretic home doses # chronic kidney disease stage III creatinine stable continue to monitor # left AKA status # diabetic neuropathy home medication # chronic ulcers on right foot wound care to see # chronic anemia stable counts # GERD home medication # right femur fracture status post ORIF # obstructive sleep apnea # aortic valve stenosis # history of recurrent UTI UA is unremarkable except for few pus cells but much better than previous UA # history of prostatic heart valve on Coumadin monitor INR regularly # disposition PT OT to see # dementia # diabetes type 2 # atrial fibrillation # DVT prophylaxis on Coumadin monitor INR # full code status 10/28/2021 Lotrisone cream for fungal infection Continue home pain medication regimen Altered mental status has resolved patient is now a x3 Patient has history of COVID pneumonia and on each repeat imaging study has been told she has COVID per daughter this is chronic and unchanged Patient with PAD of the right lower extremity with chronic ulcers nonhealing is supposed to go for revascularization soon Pending return of procalcitonin 10/29/2021 Continue Lotrisone anti fungal cream Continue home me
[2021-10-30] MEDS: DOXYCYCLINE IV 100 MG in SODIUM CHLORIDE 0.9% IV 100 ML IVPB (21:46)
[2021-10-30] MEDS: WARFARIN (*PBKC) 2 MG TABLET PO (21:54)
[2021-10-30 21:57] VITALS: BP 100/46; PULSE 70; RESP 16; TEMP 37; O2SAT 97
[2021-10-30] MEDS: MIRTAZAPINE 15 MG TABLET PO (21:57)
[2021-10-31] MEDS: oxyCODONE HCL (*CRX) 20 MG TAB SR 12HR PO ×3 (00:17→21:13)
[2021-10-31 05:50] VITALS: BP 138/60; PULSE 70; RESP 18; TEMP 36.2; O2SAT 100
[2021-10-31] MEDS: DOXYCYCLINE IV 100 MG in SODIUM CHLORIDE 0.9% IV 100 ML IVPB ×2 (06:34→17:55)
--- NOTE | 2021-10-31 08:08 | P.PNIM_ITS ---
Progress Note: A&P Assessment and Plan (1) AMS (altered mental status): Qualifiers: Altered mental status type: disorientation Qualified Code(s): R41.0 - Disorientation, unspecified Code(s): R41.82 - Altered mental status, unspecified Status: Acute Assessment and Plan: TIA versus (2) Hypoxia: Code(s): R09.02 - Hypoxemia Status: Acute Assessment and Plan: Unlikely per EMS report and patient has had no necessity for use of oxygen since admission (3) Unilateral AKA: Code(s): S78.119A - Complete traumatic amputation at level between unspecified hip and knee, initial encounter Status: Acute (4) Lung infiltrate: Code(s): R91.8 - Other nonspecific abnormal finding of lung field Status: Acute (5) Chronic diastolic heart failure: Code(s): I50.32 - Chronic diastolic (congestive) heart failure Status: Acute (6) Aortic valve stenosis: Code(s): I35.0 - Nonrheumatic aortic (valve) stenosis Status: Acute (7) H/O prosthetic heart valve: Code(s): Z95.2 - Presence of prosthetic heart valve Status: Acute (8) Anemia: Code(s): D64.9 - Anemia, unspecified Status: Acute (9) Dementia: Code(s): F03.90 - Unspecified dementia without behavioral disturbance Status: Acute Assessment and Plan: Additional Plan # altered mental status: Head CT with old infarcts and cerebral white matter disease and 2.0 cm extra-axial mass consistent with meningioma. Noted to be hypoxic which could relate to her and altered mental status. Continue to monitor. PT OT evaluate and treat # hypoxia is unclear whether it is real hypoxia versus technical issue with SpO2 monitor.. Currently on 2 L oxygen supplementation. Does not complain of shortness of breath per se. Chest x-ray with recurrent versus chronic diffuse interstitial pattern in the lungs consistent with mild pulmonary edema and or or chronic interstitial lung disease along with cardiomegaly noted. Comparatively this looks much better than recent chest x-ray. COVID swab in the ED await resolves. Treat for with antibiotics for healthcare associated pneumonia due to recent admission with cefepime, allergy to vancomycin. So will hold off on MRSA coverage no prior history of MRSA detection in the past as well. Was recently treated with doxycycline for atypicals not too long ago. # bilateral pneumonia possible COVID cover for bacterial pneumonia check procalcitonin and determine further antibiotic course # hyponatremia mild 128 continue to monitor BNP is elevated at 5460 continue gentle diuresis with monitoring of sodium level # D-dimer elevated CTA negative for PE # chronic diastolic heart failure not overtly decompensated continues gentle diuretic home doses # chronic kidney disease stage III creatinine stable continue to monitor # left AKA status # diabetic neuropathy home medication # chronic ulcers on right foot wound care to see # chronic anemia stable counts # GERD home medication # right femur fracture status post ORIF # obstructive sleep apnea # aortic valve stenosis # history of recurrent UTI UA is unremarkable except for few pus cells but much better than previous UA # history of prostatic heart valve on Coumadin monitor INR regularly # disposition PT OT to see # dementia # diabetes type 2 # atrial fibrillation # DVT prophylaxis on Coumadin monitor INR # full code status 10/28/2021 Lotrisone cream for fungal infection Continue home pain medication regimen Altered mental status has resolved patient is now a x3 Patient h
[2021-10-31 08:12] LABS: Glucose Point of Care 120 mg/dl (65-105)
[2021-10-31 08:22] LABS: Basophils Percent Auto 0.4 % (0.2-1.2); Eosinophils Absolute Auto 0.2 K/mm3 (0-0.3); Eosinophils Percent Auto 1.9 % (0-4.4); Hematocrit 33.1 % (37.0-47.0); Hemoglobin 10.2 g/dL (12.0-15.0); Immature Granulocyte Absolute 0.09 K/mm3 (0.00-0.031); Immature Granulocyte Percent A 0.9 % (0-0.5); Lymphocytes Absolute Auto 1.77 K/mm3 (0.9-3.2); Lymphocytes Percent Auto 17.5 % (18.3-44.2); Mean Corpuscular HGB Conc 30.8 g/dl (32-36); Mean Corpuscular Hemoglobin 27.2 pg (26-34); Mean Corpuscular Volume 88.3 fl (80-100); Mean Platelet Volume 9.9 fl (7.4-10.4); Monocytes Absolute Auto 0.7 K/mm3 (0.1-0.6); Monocytes Percent Auto 6.9 % (2.6-8.5); Neutrophils Absolute Auto 7.3 K/mm3 (1.3-6.7); Neutrophils Percent Auto 72.4 % (45.5-73.1); Platelet Count Result 243 k/mm3 (150-375); Red Blood Count 3.75 M/mm3 (4.2-5.4); Red Cell Distribution Width 19.4 % (11.5-14.5); White Blood Count 10.1 K/mm3 (4.5-10.0)
[2021-10-31 08:31] LABS: Lactic Acid Reflex 1.7 mmol/L (0.7-2.1)
[2021-10-31 08:32] LABS: INR 2.4; Prothrombin Time 25.3 Seconds (11.1-14.7)
[2021-10-31 08:35] LABS: Alanine Aminotransferase 16 U/L (4-35); Albumin Level 3.2 g/dL (3.5-5.1); Alkaline Phosphatase 97 U/L (38-126); Anion Gap 9 mmol/L (8-16); Aspartate Amino Transferase 28 U/L (14-36); Bilirubin,Total 0.4 mg/dL (0.2-1.3); Blood Urea Nitrogen 29 mg/dL (7-17); Calcium 8.7 mg/dL (8.4-10.2); Carbon Dioxide 29 mmol/L (22-30); Chloride 98 mmol/L (98-107); D Dimer 1.24 ug/mL (<0.48); Estimated CRCL calculation 25 ml/min; Estimated Glomerular Filt Rate 36; Glucose 120 mg/dL (65-110); Potassium 4.2 mmol/L (3.4-5.0); Sodium 136 mmol/L (137-145)
[2021-10-31] MEDS: ARTIFICIAL TEARS OPHTH SOLN 15 ML BOTTLE 1 DROP RIGHT EYE ×2 (10:12→17:29)
[2021-10-31] MEDS: SODIUM BICARBONATE TAB 650 MG TABLET PO ×2 (10:13→17:30)
[2021-10-31] MEDS: amLODIPine BESYLATE 5 MG TABLET PO (10:13)
[2021-10-31] MEDS: GABAPENTIN 300 MG CAPSULE PO ×3 (10:13→17:30)
[2021-10-31] MEDS: THERAPEUTIC MULTIVITAMINS/MINERALS TAB (*BKC) 1 TABLET PO (10:13)
[2021-10-31] MEDS: PANTOPRAZOLE 40 MG TABLET PO ×2 (10:13→17:30)
[2021-10-31] MEDS: FERROUS SULFATE 324 MG TABLET PO ×2 (10:13→17:29)
[2021-10-31] MEDS: PSYLLIUM POWDER PACKET 1 PACKET PO (10:13)
[2021-10-31] MEDS: FUROSEMIDE 40 MG TABLET PO ×2 (10:13→17:29)
[2021-10-31 10:14] VITALS: PULSE 70
[2021-10-31] MEDS: METOPROLOL SUCCINATE EXT REL 50 MG TABCR PO (10:14)
[2021-10-31] MEDS: LUBIPROSTONE 24 MCG CAPSULE PO ×2 (10:14→17:30)
[2021-10-31] MEDS: ZINC OXIDE 20% OINT 30 GM TUBE 1 APPLIC TOPICAL (10:15)
[2021-10-31] MEDS: BETAMETHASONE/CLOTRIMAZOLE CR 45 GM TUBE 1 APPLIC TOPICAL ×2 (10:15→21:15)
[2021-10-31 12:31] LABS: Glucose Point of Care 151 mg/dl (65-105)
[2021-10-31] MEDS: polyethylene glycoL 3350 17 GM POWD.PACK PO (13:39)
[2021-10-31 14:00] VITALS: BP 129/71; PULSE 78; RESP 18; TEMP 36.7; O2SAT 96
[2021-10-31 17:11] LABS: Glucose Point of Care 235 mg/dl (65-105)
[2021-10-31] MEDS: INSULIN ASPART (*BKC) 100 UNITS/ML SUB-Q (17:27)
[2021-10-31] MEDS: SILVERGEL (ELTA) 45 ML 1 APPLIC TOPICAL (17:29)
[2021-10-31] MEDS: WARFARIN (*PBKC) 3 MG TABLET PO (17:30)
[2021-10-31] MEDS: MIRTAZAPINE 15 MG TABLET PO (21:14)
[2021-10-31 21:55] LABS: Glucose Point of Care 102 mg/dl (65-105)
[2021-10-31 22:00] VITALS: BP 153/73; PULSE 73; RESP 18; TEMP 36.6; O2SAT 98
[2021-11-01] MEDS: DOXYCYCLINE IV 100 MG in SODIUM CHLORIDE 0.9% IV 100 ML IVPB (05:08)
[2021-11-01 05:40] VITALS: BP 159/93; PULSE 70; RESP 17; TEMP 37; O2SAT 96
[2021-11-01 06:03] LABS: INR 2.7; Prothrombin Time 27.8 Seconds (11.1-14.7)
[2021-11-01 08:45] LABS: Glucose Point of Care 114 mg/dl (65-105)
[2021-11-01 09:30] VITALS: PULSE 78
[2021-11-01] MEDS: LUBIPROSTONE 24 MCG CAPSULE PO (09:30)
[2021-11-01] MEDS: GABAPENTIN 300 MG CAPSULE PO ×2 (09:30→12:49)
[2021-11-01] MEDS: amLODIPine BESYLATE 5 MG TABLET PO (09:30)
[2021-11-01] MEDS: PANTOPRAZOLE 40 MG TABLET PO (09:30)
[2021-11-01] MEDS: FERROUS SULFATE 324 MG TABLET PO (09:30)
[2021-11-01] MEDS: SILVERGEL (ELTA) 45 ML 1 APPLIC TOPICAL (09:30)
[2021-11-01] MEDS: SODIUM BICARBONATE TAB 650 MG TABLET PO (09:30)
[2021-11-01] MEDS: FUROSEMIDE 40 MG TABLET PO (09:30)
[2021-11-01] MEDS: THERAPEUTIC MULTIVITAMINS/MINERALS TAB (*BKC) 1 TABLET PO (09:30)
[2021-11-01] MEDS: METOPROLOL SUCCINATE EXT REL 50 MG TABCR PO (09:30)
[2021-11-01] MEDS: ARTIFICIAL TEARS OPHTH SOLN 15 ML BOTTLE 1 DROP RIGHT EYE (09:31)
[2021-11-01] MEDS: oxyCODONE HCL (*CRX) 20 MG TAB SR 12HR PO (09:37)
[2021-11-01 11:53] LABS: Glucose Point of Care 155 mg/dl (65-105)
--- NOTE | 2021-11-01 13:35 | PM.DS ---
DS: Admitting Diagnosis Discharge Date 11/01/2021 Admitting Diagnosis Weakness DS: Discharge Diagnosis Discharge Diagnosis (1) AMS (altered mental status): Qualifiers: Altered mental status type: disorientation Qualified Code(s): R41.0 - Disorientation, unspecified Code(s): R41.82 - Altered mental status, unspecified Status: Acute Assessment and Plan: TIA versus (2) Hypoxia: Code(s): R09.02 - Hypoxemia Status: Acute Assessment and Plan: Unlikely per EMS report and patient has had no necessity for use of oxygen since admission (3) Unilateral AKA: Code(s): S78.119A - Complete traumatic amputation at level between unspecified hip and knee, initial encounter Status: Acute (4) Lung infiltrate: Code(s): R91.8 - Other nonspecific abnormal finding of lung field Status: Acute (5) Chronic diastolic heart failure: Code(s): I50.32 - Chronic diastolic (congestive) heart failure Status: Acute (6) Aortic valve stenosis: Code(s): I35.0 - Nonrheumatic aortic (valve) stenosis Status: Acute (7) H/O prosthetic heart valve: Code(s): Z95.2 - Presence of prosthetic heart valve Status: Acute (8) Anemia: Code(s): D64.9 - Anemia, unspecified Status: Acute (9) Dementia: Code(s): F03.90 - Unspecified dementia without behavioral disturbance Status: Acute Assessment and Plan: Additional Plan # altered mental status: Head CT with old infarcts and cerebral white matter disease and 2.0 cm extra-axial mass consistent with meningioma. Noted to be hypoxic which could relate to her and altered mental status. Continue to monitor. PT OT evaluate and treat # hypoxia is unclear whether it is real hypoxia versus technical issue with SpO2 monitor.. Currently on 2 L oxygen supplementation. Does not complain of shortness of breath per se. Chest x-ray with recurrent versus chronic diffuse interstitial pattern in the lungs consistent with mild pulmonary edema and or or chronic interstitial lung disease along with cardiomegaly noted. Comparatively this looks much better than recent chest x-ray. COVID swab in the ED await resolves. Treat for with antibiotics for healthcare associated pneumonia due to recent admission with cefepime, allergy to vancomycin. So will hold off on MRSA coverage no prior history of MRSA detection in the past as well. Was recently treated with doxycycline for atypicals not too long ago. # bilateral pneumonia possible COVID cover for bacterial pneumonia check procalcitonin and determine further antibiotic course # hyponatremia mild 128 continue to monitor BNP is elevated at 5460 continue gentle diuresis with monitoring of sodium level # D-dimer elevated CTA negative for PE # chronic diastolic heart failure not overtly decompensated continues gentle diuretic home doses # chronic kidney disease stage III creatinine stable continue to monitor # left AKA status # diabetic neuropathy home medication # chronic ulcers on right foot wound care to see # chronic anemia stable counts # GERD home medication # right femur fracture status post ORIF # obstructive sleep apnea # aortic valve stenosis # history of recurrent UTI UA is unremarkable except for few pus cells but much better than previous UA # history of prostatic heart valve on Coumadin monitor INR regularly # disposition PT OT to see # dementia # diabetes type 2 # atrial fibrillation # DVT prophylaxis on Coumadin monitor INR # full code status DS: Summary Hospital Course Hospital Course: 10/28/2021 Lotrisone cream for fungal infection Continue home pain medication regimen Altered mental status has resolved patient is now a x3 Patient has history of COVID pneumonia and on each repeat imaging study has been told she has COVID per daughter this is chronic and unchanged Patient with PAD of the right lower extremity with chronic ulcers nonhealing is miles
[2021-11-01 14:00] VITALS: BP 167/59; PULSE 70; RESP 20; TEMP 36.6; O2SAT 99
[2021-11-01 14:26] LABS: EDCOVIDSCREEN Negative (Negative)
--- NOTE | 2021-11-26 11:12 | WPDNEURCNPN ---
Consult date: 11/26/21 HPI: Nadege Bryan is a 81 year old female /did not see the patient. [facility] Past Medical History Medical History Aortic valve stenosis Chronic anemia Chronic constipation Chronic diastolic heart failure Chronic kidney disease, stage 4 (severe) COPD (chronic obstructive pulmonary disease) Dementia Depression Diabetes Diabetic neuropathy GERD (gastroesophageal reflux disease) History of atrial fibrillation Hypertension Obstructive sleep apnea Osteoporosis Vitamin D deficiency Surgical History Surgical History H/O prosthetic heart valve History of hip surgery History of left above knee amputation Pacemaker Due to sick sinus syndrome Family History Family History Other Unknown family medical history Social History Social History Social History: Resides at [facility]. Code status: Full code Decision maker: Gay Bryan (daughter) Smoking status: Never smoker Alcohol intake: never Substance use: never Spiritual care concerns: No Meds Home Medications and Allergies Home Medications Medication Instructions Recorded Confirmed Type Movantik 12.5 mg PO QAM 04/28/21 10/27/21 History furosemide 20 mg PO BID 04/28/21 10/27/21 History gabapentin 300 mg PO TID 04/28/21 10/27/21 History insulin lispro See Rx Instructions .ROUTE .COMPLEX 04/28/21 10/27/21 History metoprolol succinate 50 mg PO DAILY 04/28/21 10/27/21 History mirtazapine 15 mg PO HS 04/28/21 10/27/21 History pantoprazole 40 mg PO BID 04/28/21 10/27/21 History sennosides 8.6 mg PO BID PRN 04/28/21 10/27/21 History sodium bicarbonate 650 mg PO BID #60 tablet 05/04/21 10/27/21 Rx Benefiber Clear SF (dextrin) 1 packet PO DAILY 10/09/21 10/27/21 History Multiple Vitamin-Minerals 1 tablet PO DAILY 10/09/21 10/27/21 History acetaminophen 1,000 mg PO Q8H PRN 10/09/21 10/27/21 History albuterol sulfate [ProAir HFA] 1 puff INHALATION Q6H PRN 10/09/21 10/27/21 History artificial tears solution 1 drp OPHTHALMIC (EYE) BID 10/09/21 10/27/21 History calcium citrate-vitamin D3 1 tablet PO BID 10/09/21 10/27/21 History ferrous sulfate 325 mg PO BID 10/09/21 10/27/21 History ipratropium-albuterol See Rx Instructions .ROUTE 10/09/21 10/27/21 History .COMPLEX PRN melatonin 5 mg PO HS PRN 10/09/21 10/27/21 History oxycodone 20 mg PO Q12H 10/09/21 10/27/21 History polyethylene glycol 3350 17 g PO DAILY PRN 10/09/21 10/27/21 History sodium chloride [Deep Sea Nasal] 1 spray INTRANASAL Q2H PRN 10/09/21 10/27/21 History silver sulfadiazine See Rx Instructions .ROUTE .COMPLEX 10/27/21 10/27/21 History tramadol 50 mg PO TID PRN 10/27/21 10/27/21 History warfarin 2.5 mg PO DAILY 10/27/21 10/27/21 History amlodipine [Norvasc] 5 mg PO QAM #30 tablet 11/01/21 Rx levofloxacin 500 mg PO DAILY #7 tablet 11/01/21 Rx zinc oxide 1 applic TOPICAL QAM #1 g 11/01/21 Rx Allergies Allergy/AdvReac Type Severity Reaction Status Date / Time levorphanol AdvReac Itching Verified 10/27/21 09:50 Penicillins AdvReac Itching Verified 10/27/21 09:50 vancomycin AdvReac Itching Verified 10/27/21 09:50 Results Labs CBC & Chem 7: 10/31/21 07:54 10/31/21 07:54
--- NOTE | 2021-11-26 11:12 | WPDNEURCNPN ---
Consult date: 11/26/21 HPI: Nadege Bryan is a 81 year old female did not see the patient . [facility] Past Medical History Medical History Aortic valve stenosis Chronic anemia Chronic constipation Chronic diastolic heart failure Chronic kidney disease, stage 4 (severe) COPD (chronic obstructive pulmonary disease) Dementia Depression Diabetes Diabetic neuropathy GERD (gastroesophageal reflux disease) History of atrial fibrillation Hypertension Obstructive sleep apnea Osteoporosis Vitamin D deficiency Surgical History Surgical History H/O prosthetic heart valve History of hip surgery History of left above knee amputation Pacemaker Due to sick sinus syndrome Family History Family History Other Unknown family medical history Social History Social History Social History: Resides at [facility]. Code status: Full code Decision maker: Gay Bryan (daughter) Smoking status: Never smoker Alcohol intake: never Substance use: never Spiritual care concerns: No Meds Home Medications and Allergies Home Medications Medication Instructions Recorded Confirmed Type Movantik 12.5 mg PO QAM 04/28/21 10/27/21 History furosemide 20 mg PO BID 04/28/21 10/27/21 History gabapentin 300 mg PO TID 04/28/21 10/27/21 History insulin lispro See Rx Instructions .ROUTE .COMPLEX 04/28/21 10/27/21 History metoprolol succinate 50 mg PO DAILY 04/28/21 10/27/21 History mirtazapine 15 mg PO HS 04/28/21 10/27/21 History pantoprazole 40 mg PO BID 04/28/21 10/27/21 History sennosides 8.6 mg PO BID PRN 04/28/21 10/27/21 History sodium bicarbonate 650 mg PO BID #60 tablet 05/04/21 10/27/21 Rx Benefiber Clear SF (dextrin) 1 packet PO DAILY 10/09/21 10/27/21 History Multiple Vitamin-Minerals 1 tablet PO DAILY 10/09/21 10/27/21 History acetaminophen 1,000 mg PO Q8H PRN 10/09/21 10/27/21 History albuterol sulfate [ProAir HFA] 1 puff INHALATION Q6H PRN 10/09/21 10/27/21 History artificial tears solution 1 drp OPHTHALMIC (EYE) BID 10/09/21 10/27/21 History calcium citrate-vitamin D3 1 tablet PO BID 10/09/21 10/27/21 History ferrous sulfate 325 mg PO BID 10/09/21 10/27/21 History ipratropium-albuterol See Rx Instructions .ROUTE 10/09/21 10/27/21 History .COMPLEX PRN melatonin 5 mg PO HS PRN 10/09/21 10/27/21 History oxycodone 20 mg PO Q12H 10/09/21 10/27/21 History polyethylene glycol 3350 17 g PO DAILY PRN 10/09/21 10/27/21 History sodium chloride [Deep Sea Nasal] 1 spray INTRANASAL Q2H PRN 10/09/21 10/27/21 History silver sulfadiazine See Rx Instructions .ROUTE .COMPLEX 10/27/21 10/27/21 History tramadol 50 mg PO TID PRN 10/27/21 10/27/21 History warfarin 2.5 mg PO DAILY 10/27/21 10/27/21 History amlodipine [Norvasc] 5 mg PO QAM #30 tablet 11/01/21 Rx levofloxacin 500 mg PO DAILY #7 tablet 11/01/21 Rx zinc oxide 1 applic TOPICAL QAM #1 g 11/01/21 Rx Allergies Allergy/AdvReac Type Severity Reaction Status Date / Time levorphanol AdvReac Itching Verified 10/27/21 09:50 Penicillins AdvReac Itching Verified 10/27/21 09:50 vancomycin AdvReac Itching Verified 10/27/21 09:50 Results Labs CBC & Chem 7: 10/31/21 07:54 10/31/21 07:54
== END 2021-11-01 15:55 | DRG 948 ==
LOC: ANHED 18:18 → ANH2MED 10-27 09:36 → ANH3MEDSUR 10-27 19:04
PROVIDERS: Emergency Medicine; Family Medicine; Hospitalist; Internal Medicine; Admitting Provider Internal Medicine; Emergency Provider Emergency Medicine; PCP Family Medicine; Visit Provider Internal Medicine
DX: R41.0 Disorientation, unspecified (principal); I13.0 Hypertensive heart and chronic kidney disease with heart failure and stage 1 through stage 4 chronic kidney disease, or unspecified chronic kidney disease; N18.4 Chronic kidney disease, stage 4 (severe); I50.32 Chronic diastolic (congestive) heart failure; B49 Unspecified mycosis; G54.6 Phantom limb syndrome with pain; E11.22 Type 2 diabetes mellitus with diabetic chronic kidney disease; E11.40 Type 2 diabetes mellitus with diabetic neuropathy, unspecified; J44.9 Chronic obstructive pulmonary disease, unspecified; F03.90 Unspecified dementia, unspecified severity, without behavioral disturbance, psychotic disturbance, mood disturbance, and anxiety; F32.A Depression, unspecified; K21.9 Gastro-esophageal reflux disease without esophagitis; I48.91 Unspecified atrial fibrillation; G47.33 Obstructive sleep apnea (adult) (pediatric); M81.0 Age-related osteoporosis without current pathological fracture; E55.9 Vitamin D deficiency, unspecified; Z95.2 Presence of prosthetic heart valve; Z89.612 Acquired absence of left leg above knee; Z95.0 Presence of cardiac pacemaker; I49.5 Sick sinus syndrome; Z20.822 Contact with and (suspected) exposure to COVID-19; Z79.4 Long term (current) use of insulin; Z79.01 Long term (current) use of anticoagulants; Z86.16 Personal history of COVID-19; L97.519 Non-pressure chronic ulcer of other part of right foot with unspecified severity; E11.51 Type 2 diabetes mellitus with diabetic peripheral angiopathy without gangrene; R32 Unspecified urinary incontinence; I70.235 Atherosclerosis of native arteries of right leg with ulceration of other part of foot; D64.9 Anemia, unspecified
CPT/HCPCS: 36415; 70450; 71046; 71275; 80048; 80053; 81001; 82948; 83605; 83735; 83880; 84145; 85025; 85380; 85610; 85652; 86140; 87040; 87077; 87086; 87088; 87186; 87426; 93005; 97110; 97163; 97165; 97530; 97535; 99199; 99285; A9270; C9803; J0692; J1450; J1815; J7030; Q9967; U0003; U0005

== ENCOUNTER 2022-03-30 19:44 | Inpatient (IN) | payer MEDICARE, OTHER, MEDICAID, SELFPAY ==
[2022-03-30] VITALS (19 sets, daily range): BP systolic 125–168; BP diastolic 53–107; PULSE 87–101; RESP 16–33; TEMP 37.7; O2SAT 93–97
--- NOTE | ~2022-03-30 | XR_ITS ---
EXAMINATION: XR chest 1V portable DATE: 04/05/2022 06:14 INDICATION: Congestive heart failure. TECHNIQUE: A single frontal view of the chest was obtained. COMPARISON: Chest single view 04/04/2022, chest CT 10/26/2021 FINDINGS: The patient is rotated to her right. The lung volumes are normal. There are coarse intersti tial opacities throughout the lungs with a lower lung predominance. There are airspace opacities in t he lower lung zones and right perihilar region. There is a small right pleural effusion. No pneumotho rax. Cardiomegaly is noted. There are changes of aortic and mitral valve replacements. There is a lef t chest wall pacer with leads in the right atrium and right ventricle. Surgical clips in the right u pper quadrant are likely from cholecystectomy. There is a catheter tip in left axilla. IMPRESSION: 1. Diffuse lung disease with worsening in the lower lung zones, consistent with pulmonary edema versu s pneumonia. 2. Stable small right pleural effusion. 3. Cardiomegaly. Reviewed, dictated and finalized at location A. IMPRESSION: 1. Diffuse lung disease with worsening in the lower lung zones, consistent with pulmonary edema versus pneumonia. 2. Stable small right pleural effusion. 3. Cardiomegaly.
--- NOTE | ~2022-03-30 | XR_ITS ---
MODIFIED ESOPHAGRAM HISTORY: Dysphagia. TECHNIQUE: Modified barium esophagram was performed on 04/03/2022. I administered fluoroscopy and perf ormed the exam with speech pathologist. Patient was seated for lateral fluoroscopic imaging for marco stion of thin liquids, pudding, solids and quantified amounts, followed by thin liquids in uncontroll ed amounts. This was recorded on tape. A single fluoroscopic spot image was also recorded. The DAP fo r this procedure was 3.22 Gycm2. The amount of fluoroscopy time used during this procedure was 4.7 mi nutes. FINDINGS: Oral stage: Adequate function. Pharyngeal stage: Pharyngeal dysphagia with reduced tongue base retraction and pharyngeal squeeze. La ryngeal penetration was seen with all consistencies to the level of the vocal folds but without evide nt aspiration. This improved with swallows with chin tuck. Trace vallecular, piriform sinus and phary ngeal wall residue which remained uncleared following repeated dry swallows. Cervical/esophageal stage: Adequate function. IMPRESSION: Pharyngeal dysphagia with recurrent laryngeal penetration to vocal cords but no aspiratio n. Please correlate with speech pathologist findings and specific feeding recommendations. Reviewed, dictated and finalized at location A. IMPRESSION: Pharyngeal dysphagia with recurrent laryngeal penetration to vocal cords but no aspiration. Please correlate with speech pathologist findings and specific feeding recommendations.
--- NOTE | ~2022-03-30 | XR_ITS ---
EXAMINATION: XR abdomen obstructive series DATE: 04/04/2022 09:09 INDICATION: Assess for impaction. TECHNIQUE: Frontal supine and upright views of the abdomen were obtained. COMPARISON: 04/28/2021 FINDINGS: Moderate to large amount of stool scattered throughout the colon. This includes oral contrast materia l throughout the proximal colon extending to just beyond the splenic flexure related to barium swallo w study performed 1 day prior. A few contrast opacified diverticula are noted at the proximal descend ing colon. No dilated gas-filled small bowel to suggest obstruction. Elongated ovoid calcification in the right lower quadrant near the tip the cecum suspicious for an appendicolith. No free intraperito angely gas. Cholecystectomy clips in right upper quadrant. Postoperative change of median sternotomy and cardiac valve repairs. Airspace disease in the lower antony ngs which could represent pulmonary edema or pneumonia. Dual-lead cardiac pacemaker with lead tips at the right atrium and right ventricle. Additional surgical clips slightly to the left of the midline of the abdomen. And basilar calcifications in the pelvis and at the tortuous splenic artery. Partiall y visualized internal fixation with femoral neck screws and antegrade intramedullary rods at the bila teral proximal femurs. Moderate thoracolumbar spondylosis with suggestion of a few chronic mild compr ession fractures. IMPRESSION: 1. No free intraperitoneal gas or dilated gas-filled loops of bowel to suggest obstruction. 2. Moderate to large amount of stool throughout the colon with contrast from prior modified swallow s tudy extending to just beyond the splenic flexure where there are few diverticula. 3. Likely appendicolith in the right lower quadrant. Reviewed, dictated and finalized at location B. IMPRESSION: 1. No free intraperitoneal gas or dilated gas-filled loops of bowel to suggest obstruction. 2. Moderate to large amount of stool throughout the colon with contrast from pr ior modified swallow study extending to just beyond the splenic flexure where t here are few diverticula. 3. Likely appendicolith in the right lower quadrant.
--- NOTE | ~2022-03-30 | XR_ITS ---
EXAMINATION: XR chest 1V portable DATE: 04/03/2022 06:39 INDICATION: Pneumonia TECHNIQUE: frontal view of the chest was obtained. COMPARISON: Chest radiograph dated 03/30/2022 FINDINGS: Increased opacities in the bilateral mid and lower lung zones and with perihilar predominance. Likely small right pleural effusion. No pneumothorax. Cardiomegaly. Median sternotomy wires and cardiac marlin ve repairs, likely aortic and mitral. Dual lead pacemaker seen with leads projecting over the expecte d locations of the right atrium and right ventricle. IMPRESSION: 1. Increased perihilar predominant opacities in the bilateral middle and lower lobes most likely joellen estive heart failure related pulmonary edema although differential includes pneumonia. 2. Cardiomegaly with likely aortic and mitral valve repairs. Reviewed, dictated and finalized at location A. IMPRESSION: 1. Increased perihilar predominant opacities in the bilateral middle and lower lobes most likely congestive heart failure related pulmonary edema although dif ferential includes pneumonia. 2. Cardiomegaly with likely aortic and mitral valve repairs.
--- NOTE | ~2022-03-30 | XR_ITS ---
EXAM: XR shoulder RT min 2V DATE: 03/30/2022 20:45 HISTORY: fall, pain with palpation . COMPARISON: None available. FINDINGS: Diffuse osteopenia. No fracture or dislocation. Degenerative changes at the acromioclavicu lar and glenohumeral joints. Chondrocalcinosis. IMPRESSION: No acute osseous finding in the right shoulder. Reviewed, dictated and finalized at location K.
--- NOTE | ~2022-03-30 | CT_ITS ---
2 EXAMINATION: CT cervical spine wo con DATE: 03/30/2022 20:28 INDICATION: fall, head trauma TECHNIQUE: Computed tomography (CT) of the cervical spine was performed without intravenous contrast. Automated exposure control and iterative reconstruction technique were employed. The dose-length pro duct was 215.40 mGy-cm. COMPARISON: [facility]PA 10/26/2021. FINDINGS: Counting reference: Craniocervical junction. There are seven cervical type vertebral bodies. Anatomic Variants: None.. Vertebral Body Alignment: Intact. Craniocervical junction: Moderate degenerative change. Alignment intact. Osseous structures/fracture: No evidence of a lytic or blastic process in the visualized spine. N o evidence of acute fracture. Cervical soft tissues: The paraspinal soft tissues planes are maintained. Senescent and interstiti al changes in the lungs, with scattered centrilobular and tree-in-bud opacities in the inferior most images of the scan. Degenerative changes: Multilevel degenerative disc disease. Multilevel severe bilateral neural forami nal narrowing. Moderate to severe central canal stenosis at C5-6. IMPRESSION: No acute fracture or traumatic malalignment in the cervical spine. Pulmonary findings may reflect inf ection, overlying chronic senescent and interstitial changes. Please also refer to the forthcoming est radiograph report for additional details. Reviewed, dictated and finalized at location K. IMPRESSION: No acute fracture or traumatic malalignment in the cervical spine. Pulmonary fi ndings may reflect infection, overlying chronic senescent and interstitial cuba ges. Please also refer to the forthcoming chest radiograph report for additiona l details.
--- NOTE | ~2022-03-30 | XR_ITS ---
EXAMINATION: XR chest 1V portable DATE: 04/04/2022 09:09 INDICATION: Congestive heart failure TECHNIQUE: frontal view of the chest was obtained. COMPARISON: Chest radiograph dated 04/03/2022 FINDINGS: Patient is rotated towards the right. Persistent opacities in the right mid to lower lung zone. The r egion of opacities in the left lower lung zone is now obscured by a dual-lead cardiac pacemaker due t o the rightward rotation of the patient. Small right pleural effusion. No pneumothorax or left-sided pleural effusion. Cardiomegaly. The cardiac pacemaker lead tips unchanged projecting over the right a trium and right ventricle. Cardiac valve repairs and likely at the aortic and mitral valves. Cholecys tectomy clips in right upper quadrant. IMPRESSION: 1. Persistent opacities in the right mid to lower lung zones, likely also in the left lower lung zone which is partially obscured by a cardiac pacemaker. Differential includes congestive heart failure r elated pulmonary edema or pneumonia. 2. Small right pleural effusion. 3. Cardiomegaly. Reviewed, dictated and finalized at location B. IMPRESSION: 1. Persistent opacities in the right mid to lower lung zones, likely also in th e left lower lung zone which is partially obscured by a cardiac pacemaker. Diff erential includes congestive heart failure related pulmonary edema or pneumonia . 2. Small right pleural effusion. 3. Cardiomegaly.
--- NOTE | ~2022-03-30 | XR_ITS ---
EXAMINATION: XR chest 1V Exam Date/Time: 03/30/2022 20:30 CDT HISTORY: febrile, unwitnessed fall Comparison: 10/26/2021. RESULT: Lines, tubes, and devices: Left chest pacer, with intact leads. Intact sternotomy wires. Cardiac marlin ve replacement. Lungs and pleura: Diffuse reticular and scattered coarse interstitial and nodular opacities, increas ed since the prior study. Cardiomediastinal silhouette: Stable enlarged cardiomediastinal silhouette. Other: No acute osseous or upper abdominal finding. IMPRESSION: Pulmonary findings concerning for atypical infection and/or interstitial edema, overlying chronic int erstitial changes. Reviewed, dictated and finalized at location K. IMPRESSION: Pulmonary findings concerning for atypical infection and/or interstitial edema, overlying chronic interstitial changes.
--- NOTE | ~2022-03-30 | XR_ITS ---
EXAM: XR knee RT 2V DATE: 03/30/2022 20:45 HISTORY: fall, hx trauma . COMPARISON: 03/07/2021. FINDINGS: Severely decreased mineralization. Partially visualized femoral fixation kajal, intact. Arthur drocalcinosis. Severe arthritis of the right knee. No fracture or dislocation. Small right knee joint effusion. Quadriceps enthesopathy. Diffuse vascular calcification. Muscle atrophy. IMPRESSION: No acute osseous finding in the right knee. Reviewed, dictated and finalized at location K.
--- NOTE | ~2022-03-30 | CT_ITS ---
EXAMINATION: CT brain wo con DATE: 03/30/2022 20:28 INDICATION: fall, head trauma . TECHNIQUE: Computed tomography (CT) of the head was performed without intravenous contrast. The mA wa s adjusted according to patient size. Iterative reconstruction technique was employed. The dose-lengt h product was 315.48 mGy-cm. COMPARISON: None FINDINGS: Exam is limited by field of view selection and mild motion which required repeat imaging. No acute intracranial hemorrhage or extra-axial fluid collection. No hydrocephalus, mass, or herniation. No acute ischemic infarct. Unremarkable dural venous sinus attenuation. No acute osseous abnormality. Mild mucosal thickening in the inferior left medullary sinus, otherwise the aerated spaces are clear. Moderate atrophy and chronic white matter change. Atherosclerotic intracranial calcifications. Bilate ral lens replacements. Old calcified meningioma. 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 IMPRESSION: No acute intracranial process. Reviewed, dictated and finalized at location K.
--- NOTE | 2022-03-30 20:01 | ED.FALL ---
HPI - Fall General Chief Complaint: Fall <Yeimy Lopez PA-C - Last Filed: 03/31/22 02:28> Stated Complaint: glf head lac <Yeimy Lopez PA-C - Last Filed: 03/31/22 02:28> Time Seen by Provider: 03/30/22 19:49 <Yeimy Lopez PA-C - Last Filed: 03/31/22 02:28> History of Present Illness HPI Narrative: Patient is an 81-year-old female with a history of left AKA, atrial fibrillation, CKD 3, hypertension, diabetes, sick sinus s/p pacemaker, mechanical valve on coumadin, presents from her [facility] center after an unwitnessed fall today. Reportedly patiently fell out of her wheelchair, and landed on her right side, striking her head. Patient is on warfarin. She is currently complaining of several skin tears to her right forehead, right shoulder, right knee, and is also complaining of right knee pain, right shoulder pain, and a headache with some upper neck pain. Patient is unsure why she fell today, and is unsure if she lost consciousness after the fall. Denies chest pain, shortness of breath, but just states she feels unwell. She has baseline A&O x3, per patient's daughters she is altered. Per daughters, she has been feeling more short of breath than usual. <Yeimy Lopez PA-C - Last Filed: 03/31/22 02:28> Related Data Home Medications: Home Medications Medication Instructions Recorded Confirmed furosemide 20 mg PO DAILY 04/28/21 03/31/22 gabapentin 300 mg PO TID 04/28/21 03/31/22 insulin lispro See Rx Instructions .ROUTE .COMPLEX 04/28/21 03/31/22 metoprolol succinate 50 mg PO DAILY 04/28/21 03/31/22 mirtazapine 15 mg PO HS 04/28/21 03/31/22 pantoprazole 40 mg PO BID 04/28/21 03/31/22 sennosides 8.6 mg PO BID PRN 04/28/21 03/31/22 Benefiber Clear SF (dextrin) 1 packet PO DAILY 10/09/21 03/31/22 Deep Sea Nasal 1 spray INTRANASAL Q2H PRN 10/09/21 03/31/22 Multiple Vitamin-Minerals 1 tablet PO DAILY 10/09/21 03/31/22 acetaminophen 1,000 mg PO Q8H PRN 10/09/21 03/31/22 albuterol sulfate [ProAir HFA] 1 puff INHALATION Q6H PRN 10/09/21 03/31/22 calcium citrate-vitamin D3 1 tablet PO BID 10/09/21 03/31/22 ferrous sulfate 325 mg PO BID 10/09/21 03/31/22 ipratropium-albuterol 3 ml INHALATION Q4H PRN 10/09/21 03/31/22 melatonin 5 mg PO HS PRN 10/09/21 03/31/22 oxycodone 20 mg PO Q12H 10/09/21 03/31/22 polyethylene glycol 3350 17 g PO DAILY PRN 10/09/21 03/31/22 tramadol 50 mg PO TID PRN 10/27/21 03/31/22 ascorbic acid (vitamin C) 1,500 mg PO HS 03/31/22 03/31/22 collagenase clostridium histo. 1 applic TOPICAL DAILY 03/31/22 03/31/22 [Santyl] ergocalciferol (vitamin D2) 1,250 mcg PO WEEKLY 03/31/22 03/31/22 folic acid 1 mg PO DAILY 03/31/22 03/31/22 nystatin 1 applic TOPICAL BID 03/31/22 03/31/22 warfarin 0.5 mg PO QMWF 03/31/22 03/31/22 warfarin 4 mg PO QMWF 03/31/22 03/31/22 warfarin [Jantoven] 5 mg PO QTUTHSASU 03/31/22 03/31/22 <Yeimy Lopez PA-C - Last Filed: 03/31/22 02:28> Allergies/Adverse Reactions: Allergies Allergy/AdvReac Type Severity Reaction Status Date / Time levorphanol AdvReac Itching Verified 03/24/22 09:46 Penicillins AdvReac Itching Verified 03/24/22 09:46 vancomycin AdvReac Itching Verified 03/24/22 09:46 <Yeimy Lopez PA-C - Last Filed: 03/31/22 02:28> Review of Systems Review of Systems: Gen: Denies fevers or chills Eyes: Denies eye pain or visual change ENT: Denies congestion Respiratory: Denies shortness of breath or cough CV: Denies chest pain or palpitations GI: Denies abdominal pain nausea, emesis or diarrhea : denies burning, urgency, frequency or hematuria Musculoskeletal: Reports right knee pain, right shoulder pain, headache. Neuro: Reports headache. Denies numbness, tingling, weakness or focal weakness Skin: Reports skin flap lacerations. Except as documented, all other systems reviewed and negative <Yeimy Lopez PA-C - Last Filed: 03/31/22 02:28> All systems reviewed & are unremarkable ex
--- NOTE | 2022-03-30 20:02 | ECG_ITS ---
Measurements Intervals [place] Rate: 98 P: WI: 0 QRS: 49 QRSD: 93 T: -84 QT: 339 QTc: 433 Interpretive Statements ATRIAL FLUTTER/TACHYCARDIA WITH RAPID VENTRICULAR RESPONSE ST-T WAVE ABNORMALITY IN ANTEROLAT/INF LEADS- CONSIDER ISCHEMIA PEAKED T WAVES- CONSIDER HYPERKALEMIA OR ISCHEMIA BASELINE ARTIFACT- I, AVR, V6 ABNORMAL ECG Electronically Signed On 03-31-2022 6:45:34 CDT by David Reyes D.O.
--- NOTE | 2022-03-30 21:01 | ECG_ITS ---
Measurements Intervals [place] Rate: 93 P: DE: 0 QRS: 59 QRSD: 97 T: -80 QT: 343 QTc: 428 Interpretive Statements ATRIAL LUTTER/TACHYCARDIA ST-T WAVE ABNORMALITY IN ANTEROLAT/INF LEADS- CONSIDER ISCHEMIA PEAKED T WAVES- CONSIDER HYPERKALEMIA OR ISCHEMIA BASELINE ARTIFACT- I, II, III, AVR, AVL,A VF, V3 ABNORMAL ECG Electronically Signed On 04-02-2022 7:51:55 CDT by David Reyes D.O.
[2022-03-30 21:26] LABS: Basophils Absolute Auto 0.1 K/mm3 (0.0-0.1); Basophils Percent Auto 0.2 % (0.2-1.2); Eosinophils Absolute Auto 0.1 K/mm3 (0-0.3); Eosinophils Percent Auto 0.2 % (0-4.4); Hematocrit 35.9 % (37.0-47.0); Hemoglobin 11.1 g/dL (12.0-15.0); Immature Granulocyte Absolute 0.55 K/mm3 (0.00-0.031); Immature Granulocyte Percent A 2.2 % (0-0.5); Lymphocytes Percent Auto 1.6 % (18.3-44.2); Mean Corpuscular HGB Conc 30.9 g/dl (32-36); Mean Corpuscular Hemoglobin 30.9 pg (26-34); Monocytes Absolute Auto 0.9 K/mm3 (0.1-0.6); Monocytes Percent Auto 3.4 % (2.6-8.5); Neutrophils Absolute Auto 23.4 K/mm3 (1.3-6.7); Neutrophils Percent Auto 92.4 % (45.5-73.1); Nucleated Red Blood Cells Perc 0.1 % (0.0-0.2); Platelet Count Result 250 k/mm3 (150-375); Red Blood Count 3.59 M/mm3 (4.2-5.4); White Blood Count 25.3 K/mm3 (4.5-10.0)
[2022-03-30 21:38] LABS: INR 2.6; Prothrombin Time 27.3 Seconds (11.1-14.7)
[2022-03-30 21:40] LABS: Appearance Urine Clear (Clear); Bilirubin Urine Negative (Negative); Blood Urine Negative (Negative); Color Urine Yellow (Yellow); Glucose Urine UA Negative (Negative); Ketones Urine Negative (Negative); Leukocyte Esterase Ur Trace LEU/UL (Negative); Nitrate Urine Negative (Negative); Protein Urine 1+ mg/dL (Negative); Specific Grav Ur 1.015 (1.001-1.035); Urobilinogen Urine 0.2 mg/dL (<2.0)
[2022-03-30 21:45] LABS: Alanine Aminotransferase 26 U/L (6-35); Albumin Level 3.4 g/dL (3.5-5.1); Alkaline Phosphatase 114 U/L (38-126); Anion Gap 8 mmol/L (8-16); Aspartate Amino Transferase 38 U/L (14-36); Bilirubin,Total 0.4 mg/dL (0.2-1.3); Blood Urea Nitrogen 38 mg/dL (7-17); Calcium 8.4 mg/dL (8.4-10.2); Carbon Dioxide 27 mmol/L (22-30); Chloride 100 mmol/L (98-107); Estimated CRCL calculation 27 ml/min; Estimated Glomerular Filt Rate 43; Glucose 111 mg/dL (65-110); Potassium 6.1 mmol/L (3.4-5.0); Sodium 135 mmol/L (137-145)
[2022-03-30 21:46] LABS: Ovalocytes 1+ (NORMAL); Platelet Estimate Adequate (Adequate)
[2022-03-30 21:53] LABS: Troponin I 0.072 ng/mL (0.000-0.034)
[2022-03-30 21:53] LABS: Add Urine Microscopic? YES; Bacteria Urine Trace /hpf; Mucus Urine Rare /lpf; Squamous Epithelial Cell Urine Rare /hpf (Few); WBC Urine 31-50 /hpf
[2022-03-30 22:03] LABS: SARS-CoV-2 RNA PCR Negative
[2022-03-30] MEDS: DEXTROSE 50% 25 GM/50 ML SYRINGE IV PUSH (22:32)
[2022-03-30] MEDS: INSULIN HUMAN REGULAR (*BKC) 100 UNITS/ML 10 UNITS IV PUSH (22:33)
[2022-03-30] MEDS: CALCIUM GLUCONATE 1,000 MG/10 ML VIAL 1000 MG IV PUSH (22:33)
[2022-03-30] MEDS: SODIUM CHLORIDE 0.9% IV 100 ML 999 ML (22:40)
[2022-03-30] MEDS: MORPHINE SULFATE (*CRX) 4 MG/ML INJ IV PUSH (23:55)
[2022-03-30] MEDS: levoFLOXacin 500 MG/D5W 100 ML 500 MG/100 ML BAG 100 MG IVPB (23:55)
[2022-03-30] MEDS: AZTREONAM 2 GM in SODIUM CHLORIDE 0.9% IV 100 ML 200 ML IVPB (23:56)
[2022-03-31] VITALS (36 sets, daily range): BP systolic 92–127; BP diastolic 41–60; PULSE 70–105; RESP 16–81; TEMP 35.2–37.3; O2SAT 90–99; BMI 21.7
[2022-03-31 00:06] LABS: Glucose Point of Care 95 mg/dl (65-105)
--- NOTE | 2022-03-31 00:54 | PC.NURSE ---
Pt has multiple wounds noted. PT is from rehab center that performs regular wound care. Pt has redness that is nonblanchable to coccyx as well as known wounds to the pts toes and heel. Pt came in wearing pressure relief boot. Pt has new skin tears to forhead, right upper arm, and right knee. All wounds cleansed with cleanser and dressed with abx ointment and telfa.
[2022-03-31] MEDS: SODIUM CHLORIDE 0.9% IV 1,000 ML 999 ML IV CONT (01:19)
[2022-03-31] MEDS: SODIUM BICARBONATE 8.4% 50 MEQ/50 ML SYRINGE IV PUSH (01:19)
[2022-03-31 01:46] LABS: Influenza A QL RT-PCR Negative (Negative); Influenza B QL RT-PCR Negative (Negative)
[2022-03-31] MEDS: SODIUM CHLORIDE 0.9% IV 1,000 ML 75 ML IV CONT ×2 (03:54→18:14)
--- NOTE | 2022-03-31 04:02 | ADMIMU ---
This patient, Nadege Bryan, was admitted to IMU status, and placed in Intensive Care Unit-5. Patient/family oriented to hospital policies and general routines including ID bracelet, bed and alarms, visiting hours, pain management, procedures, bathroom and other care routines, personal items, smoking policy, room service/diet, and visiting hours. Valuables list has been completed. Information on how to activate the Rapid Response Team has been discussed. Patient/Family are encouraged to report perceived risks to care and to ask questions if they do not understand what they are told or what they should do.
[2022-03-31 05:16] LABS: Troponin I 0.227 ng/mL (0.000-0.034)
--- NOTE | 2022-03-31 07:01 | PM.IMHP ---
H&P: HPI History of Present Illness Date/Time: 03/31/22 07:01 Chief Complaint: Fall from wheelchair Narrative: 81-year-old female with past medical history of dementia, H rule fibrillation on chronic anticoagulation, chronic kidney disease stage 4, COPD, diabetes and chronic wound who presented to the ER from Memory Care after falling from a chair. The patient does not remember the details of her fall. She is alert oriented to person and the fact that she is in the hospital. She does not know which hospital she is in and thinks that the month is June. She was unable to tell me the year. She reports pain in her head abdomen and legs. She has chronic pain symptoms. She has a large skin tear noted to her left anterior scalp/forehead and a skin tear to her knee. She denies any constipation but she is not a reliable historian. She has multiple medications for constipation listed on her home med rec. She denies any shortness of breath. She has not had any cough or congestion. She was noted to have a temperature of 99.9 in the ER. She has multiple chronic wounds to her right leg and foot. Some of which are moist and have some drainage but no surrounding erythema. Her COVID PCR and influenza PCR were negative in the ER. The patient initially seemed to providing a limited but fair history. But then the patient told me that she recently got hurt by trying to lift her son after he had fallen off of a bar stool. Patient is been in memory care for several years. Review of Systems Review of Systems: Review of systems was limited due to the patient's dementia. She is only alert oriented to person and the fact she is in the hospital. [facility] Past Medical History Medical History (Updated 03/31/22 @ 07:47 by Margi Jorge DO) Aortic valve stenosis Chronic anemia Chronic constipation Chronic diastolic heart failure Chronic kidney disease, stage 4 (severe) COPD (chronic obstructive pulmonary disease) Dementia Depression Diabetes Diabetic neuropathy GERD (gastroesophageal reflux disease) History of atrial fibrillation Hypertension Obstructive sleep apnea Osteoporosis Ulcer of foot, chronic Right foot Vitamin D deficiency Surgical History Surgical History H/O prosthetic heart valve History of hip surgery History of left above knee amputation Pacemaker Due to sick sinus syndrome Family History Family History Other Unknown family medical history Social History Social History (Updated 03/31/22 @ 07:25 by Margi Jorge DO) Social History: Resides at [facility]. Code status: DNI Decision maker: Gay Bryan (daughter) Smoking status: Never smoker Alcohol intake: never Substance use: never Spiritual care concerns: No Meds Home Medications and Allergies Home Medications Medication Instructions Recorded Confirmed Type furosemide 20 mg PO DAILY 04/28/21 03/31/22 History gabapentin 300 mg PO TID 04/28/21 03/31/22 History insulin lispro See Rx Instructions .ROUTE .COMPLEX 04/28/21 03/31/22 History metoprolol succinate 50 mg PO DAILY 04/28/21 03/31/22 History mirtazapine 15 mg PO HS 04/28/21 03/31/22 History pantoprazole 40 mg PO BID 04/28/21 03/31/22 History sennosides 8.6 mg PO BID PRN 04/28/21 03/31/22 History Benefiber Clear SF (dextrin) 1 packet PO DAILY 10/09/21 03/31/22 History Deep Sea Nasal 1 spray INTRANASAL Q2H PRN 10/09/21 03/31/22 History Multiple Vitamin-Minerals 1 tablet PO DAILY 10/09/21 03/31/22 History acetaminophen 1,000 mg PO Q8H PRN 10/09/21 03/31/22 History albuterol sulfate [ProAir HFA] 1 puff INHALATION Q6H PRN 10/09/21 03/31/22 History calcium citrate-vitamin D3 1 tablet PO BID 10/09/21 03/31/22 History ferrous sulfate 325 mg PO BID 10/09/21 03/31/22 History ipratropium-albuterol 3 ml INHALATION Q4H PRN 10/09/21 03/31/22 History melatonin 5 mg P
[2022-03-31 07:48] LABS: Hematocrit 28.3 % (37.0-47.0); Mean Corpuscular HGB Conc 30.7 g/dl (32-36); Mean Corpuscular Hemoglobin 30.7 pg (26-34); Mean Platelet Volume 9.6 fl (7.4-10.4); Platelet Count Result 167 k/mm3 (150-375); Red Blood Count 2.83 M/mm3 (4.2-5.4); White Blood Count 17.7 K/mm3 (4.5-10.0)
[2022-03-31 07:51] LABS: Hemoglobin 8.7 g/dL (12.0-15.0)
[2022-03-31 07:57] LABS: Anion Gap 4 mmol/L (8-16); Blood Urea Nitrogen 34 mg/dL (7-17); Calcium 7.6 mg/dL (8.4-10.2); Carbon Dioxide 26 mmol/L (22-30); Chloride 106 mmol/L (98-107); Estimated CRCL calculation 27 ml/min; Estimated Glomerular Filt Rate 43; Glucose 135 mg/dL (65-110); Potassium 4.7 mmol/L (3.4-5.0); Sodium 136 mmol/L (137-145)
[2022-03-31 08:21] LABS: Troponin I 0.197 ng/mL (0.000-0.034)
[2022-03-31] MEDS: TOLNAFTATE 1% POWDER 45 GM BTL 1 APPLIC TOPICAL ×2 (08:50→21:17)
[2022-03-31] MEDS: GABAPENTIN 300 MG CAPSULE PO ×3 (08:50→18:10)
[2022-03-31] MEDS: oxyCODONE HCL (*CRX) 10 MG TAB SR 12HR 20 MG PO ×2 (08:50→21:16)
[2022-03-31] MEDS: METOPROLOL SUCCINATE EXT REL 50 MG TABCR PO (08:51)
[2022-03-31] MEDS: FOLIC ACID 1 MG TABLET PO (08:51)
[2022-03-31] MEDS: PANTOPRAZOLE 40 MG TABLET PO ×2 (08:51→18:11)
[2022-03-31] MEDS: FERROUS SULFATE 324 MG TABLET PO ×2 (08:51→18:11)
[2022-03-31] MEDS: COLLAGENASE OINT 30 GM TUBE 1 APPLIC TOPICAL (08:53)
[2022-03-31] MEDS: AZTREONAM 2 GM in SODIUM CHLORIDE 0.9% IV 100 ML 200 ML IVPB ×2 (08:54→18:14)
--- NOTE | 2022-03-31 09:11 | PM.CNCAR ---
Assessment and Plan Additional Plan -syncope -mechanical aortic, mitral valves -atrial fibrillation on warfarin, INR 2.6 -pacemaker -COPD This is a 81-year-old female who presents with syncopal episode. Chest x-ray suggestive possible infection, she had leukocytosis and admission with white cell count 25 K, L potassium admission also was 6 with creatinine 1 .2 and GFR estimated at 27. She sustained severe carts in her scalp, left arm, leg. -will order device interrogation of the pacemaker to rule out arrhythmias. -agree with antibiotics to treat possible pneumonia. -meanwhile will continue warfarin. -check echocardiogram -check orthostatics. -continue warfarin with INR 2.5-3.5 -try to obtain records from [place]. History of Present Illness History of Present Illness Consult date/time: 03/31/22 09:11 Requesting physician: Yeimy Lopez PA-C Consult reason: Other (Elevated troponins) Reason For Visit: pneumonia, UTI Narrative: This is a 81-year-old female with past history of diabetes, dementia, atrial fibrillation on warfarin, CKD stage 4, COPD,, mechanical mitral and aortic valves, pacemaker, follows up at [facility] with Cardiology who presents from memory care after falling down from a chair. Apparently when she arrived here she is alert to person, to the fact that she is in the hospital but does not know the name of the hospital. She thought that it was June. Apparently she has a large skin tear to the left anterior scalp and forehead and skin tear to the knee. Currently she is lying in bed. She appears to be very fragile, she has very bad skin cut on her scalp and she is relatively somnolent. Oriented x3 at this time. Not recall what happened. Denies chest pain, shortness of breath, fever, chills, cough Chest x-ray is concerning for possible infection in the lungs. INR today 2.61 White cell count 25 K, Hemoglobin admission 11 and today 8.7 Creatinine is 1.2 however creatinine clearance is only 27, Potassium on admission 6 Troponin 0.079,, 0.22 0.197 COVID negative Review of Systems Constitutional: Constitutional: Denies chills, Denies fever(s), Denies poor appetite and Reports weakness Eyes: Eyes: Denies eye discharge, Denies loss of vision, Denies eye pain and Denies photophobia ENT: Denies dizziness, Denies epistaxis, Denies nasal congestion and Denies sore throat Cardiovascular: Cardiovascular: Denies chest pain, Reports syncope, Denies pedal edema, Denies leg edema, Denies palpitations, Denies dyspnea, Denies dyspnea on exertion and Denies orthopnea Respiratory: Respiratory: Denies cough, Denies dyspnea, Denies dyspnea on exertion and Denies wheezing Gastrointestinal: Gastrointestinal: Denies abdominal pain, Denies diarrhea, Denies nausea and Denies vomiting Genitourinary: Genitourinary: Denies hematuria, Denies genital lesions and Denies dysuria Musculoskeletal: Musculoskeletal: Denies arthralgias, Denies joint swelling and Denies numbness Integumentary/Breasts: Skin/Breast: Denies pruritus and Denies rash Comments: Skin cuts on his scalp, left arm Neurologic: Denies dizziness, Denies syncope, Denies loss of vision and Denies numbness Psychiatric: Psychiatric: Denies anxiety and Denies depression Endocrine: Endocrine: Denies cold intolerance, Denies heat intolerance and Denies palpitations Hematologic/Lymphatic: Hematologic/Lymphatic: Denies easy bleeding and Denies easy bruising Allergic/Immunologic: Allergic/Immunologic: Denies urticaria and Denies wheezing PMFSH Past Medical History Medical History Aortic valve stenosis Chronic anemia Chronic constipation Chronic diastolic heart failure Chronic kidney disease, stage 4 (severe) COPD (chronic obstructive pulmonary disease) Dementia Depression Diabetes Diabetic neuropathy GERD (gastroesophageal reflux disease) History of atrial fibrillation Hypertension Obstructive sleep
--- NOTE | 2022-03-31 10:55 | PM.IMPN ---
Progress Note: A&P Assessment and Plan (1) Hyperkalemia: Code(s): E87.5 - Hyperkalemia Status: Acute Assessment and Plan: Potassium was 6.1 on admission. EKG did show peaked T-waves. Potassium was treated appropriately. Repeat potassium is improved. Etiology unclear since patient is not on Fab, ARB or potassium. Continue to follow. Check cortisol level morning. Check TSH in the morning (2) Sepsis: Code(s): A41.9 - Sepsis, unspecified organism Status: Acute Assessment and Plan: Patient presents with confusion and found to have leukocytosis and mild tachycardia. CT brain showing no acute process. [place] related to UTI and/or PNA. Mental status has improved. White count has trended downward will follow-up on culture results. Continue current IV antibiotics. (3) Pneumonia: Qualifiers: Laterality: bilateral Lung location: unspecified part of lung Pneumonia type: due to unspecified organism Qualified Code(s): J18.9 - Pneumonia, unspecified organism Code(s): J18.9 - Pneumonia, unspecified organism Status: Acute Assessment and Plan: Patient's chest x-ray is concerning for pneumonia. COVID and influenza PCR negative. Nebulizer treatments have been started. Continue IV antibiotics. Follow-up on culture results. (4) Elevated troponin: Code(s): R77.8 - Other specified abnormalities of plasma proteins Status: Acute Assessment and Plan: Troponin elevated to 0.23. EKG showing anterior lateral ST T wave changes with deep T wave inversion. This could be from the hyperkalemia. Chest x-ray showing atypical infection. Patient denies any chest pain. Suspect mildly elevated troponins related to the sepsis picture and not coronary disease. Will continue to follow. Cards consulted ordered. Repeat EKG in the morning. (5) Acute UTI: Code(s): N39.0 - Urinary tract infection, site not specified Status: Acute Assessment and Plan: UA noted. Patient may have UTI. Old urine cultures noted. Will continue IV antibiotics for now and narrow coverage once culture results are known. (6) Skin tear: Status: Acute Assessment and Plan: Patient with multiple skin tears in various locations. She also has the chronic right foot ulcer. Wound Care consulted. Continue current wound care dressings. Continue current topical medications. (7) Dementia: Code(s): F03.90 - Unspecified dementia without behavioral disturbance Status: Acute Assessment and Plan: Patient with known dementia. She may have behavioral disorder component associated with dementia. She is on Remeron at night which has been continued. She is more oriented this morning since starting treatment for the above findings. Continue to follow. (8) H/O prosthetic heart valve: Code(s): Z95.2 - Presence of prosthetic heart valve Status: Acute Assessment and Plan: Patient has known mechanical mitral valve and possibly a mechanical aortic valve as well. INR is therapeutic at 2.6. Check daily INR. Continue Coumadin. (9) Anemia: Code(s): D64.9 - Anemia, unspecified Status: Acute Assessment and Plan: Patient has a chronic anemia mostly in the 9-10 range when she is well. Hemoglobin is 11.1 on admission and dropped to 8.7 this morning. Besides oozing from her skin traumas, there has been no evidence of acute blood loss. Will follow with serial HH today but consider CT scan abdomen if continues to drop. (10) Ulcer of foot, chronic: Qualifiers: Laterality: right Non-pressure ulcer stage: unspecified non-pressure ulcer stage Qualified Code(s): L97.519 - Non-pressure chronic ulcer of other part of right foot with unspecified severity Code(s): L97.509 - Non-pressure chronic ulcer of other part of unspecified foot with unspecified severity Status: Acute Assessment
[2022-03-31 11:41] LABS: Hematocrit 30.9 % (37.0-47.0)
[2022-03-31] MEDS: SILVERGEL (ELTA) 45 ML 1 APPLIC TOPICAL (12:11)
[2022-03-31 12:59] LABS: Glucose Point of Care 111 mg/dl (65-105)
[2022-03-31 16:13] LABS: Hematocrit 27.9 % (37.0-47.0); Hemoglobin 8.6 g/dL (12.0-15.0)
[2022-03-31 17:53] LABS: Glucose Point of Care 113 mg/dl (65-105)
[2022-03-31] MEDS: WARFARIN (*PBKC) 5 MG TABLET PO (18:11)
[2022-03-31 19:50] LABS: Hematocrit 28.9 % (37.0-47.0); Hemoglobin 8.8 g/dL (12.0-15.0)
[2022-03-31] MEDS: ALBUTEROL SULFATE NEB 2.5 MG/0.5 ML INH INHALATION (20:22)
[2022-03-31] MEDS: IPRATROPIUM BR 0.02% INH SOLN 0.5 MG/2.5 ML VIAL INHALATION (20:22)
[2022-03-31] MEDS: MIRTAZAPINE 15 MG TABLET PO (21:16)
[2022-03-31] MEDS: levoFLOXacin 250 MG/D5W 50 ML 250 MG/50 ML BAG 50 MG IVPB (21:16)
[2022-03-31 21:23] LABS: Glucose Point of Care 141 mg/dl (65-105)
[2022-04-01] VITALS (17 sets, daily range): BP systolic 106–161; BP diastolic 56–72; PULSE 69–77; RESP 14–22; TEMP 36–36.9; O2SAT 95–99
--- NOTE | 2022-04-01 | ECHO_ITS ---
Patient Info Name: Nadege Bryan Age: 81 years : 1940 Gender: Female Ht: 64 in Wt: 126 lbs BSA: 1.61 m2 HR: 70 bpm BP: 113 / 58 mmHg Heart Rhythm: Sinus Rhythm Technical Quality: Fair Exam Date: 04/01/2022 7:27 AM Exam Location: [facility] Patient Status: Inpatient Admit Date: 03/31/2022 Staff Ordering Physician: María Monet MD Casualty Underwriter: Adri Smith RDCS Attending Provider: Margi Jorge DO Referring Physician: Tierney CUETO; Exam Type: CA echo doppler color flow Study Info Indications - syncope, mechanical mv and av Complete two-dimensional, color flow and Doppler transthoracic echocardiogram is performed. Summary 1. Complete two-dimensional, color flow and Doppler transthoracic echocardiogram is performed. 2. There is moderate concentric increased left ventricular wall thickness. 3. Left ventricular systolic function is normal, estimated at 60-65%. 4. Mechanical mitral valve which appears normal and is functioning normally. 5. Mechanical aortic valve which appears to be functioning normally but is poorly visual. 6. Moderate pulmonary hypertension. 7. Pacemaker/ICD leads visualized. 8. Compared to echocardiogram done in September of 2021 nothing has changed. Left Ventricle Left ventricular chamber dimension is normal. Left ventricular systolic function is normal, estimated at 60-65%. There is moderate concentric increased left ventricular wall thickness. The left ventricular diastolic function is grade I diastolic dysfunction. Right Ventricle Right ventricular chamber dimension is normal. Linear artifact in right ventricle suggestive of catheter(s), pacemaker lead(s), or ICD lead(s). Left Atria Left atrial chamber dimension is moderately enlarged. Right Atria Right atrial chamber dimension is moderately enlarged. Linear artifact in the right atrium suggestive of catheter(s), pacemaker lead(s), or ICD lead(s). Aortic Valve The mechanical aortic valve is not well visualized. Pulmonic Valve The pulmonic valve is normal. There is mild pulmonic regurgitation. Mitral Valve There is no regurgitation of the mechanical mitral valve. Tricuspid Valve The tricuspid valve leaflets are normal. There is mild tricuspid valve regurgitation. Moderate pulmonary hypertension, estimated pulmonary arterial systolic pressure is 60 mmHg. Pericardium/Pleural The pericardium appears normal. Aorta The aortic root size at the sinus of Valsalva is normal. Left Ventricular Outflow Tract Name Value Normal LVOT 2D LVOT Diameter 1.9 cm LVOT Doppler LVOT Peak Gradient 2 mmHg LVOT Mean Gradient 1 mmHg LVOT VTI 14 cm LVOT VTI/AV VTI Ratio 0.4 LVOT Stroke Volume 37 ml LVOT CO 2.5 l/min LVOT CI 1.5 l/min/m2 Pulmonic Valve Name Value Normal -----
[2022-04-01] MEDS: AZTREONAM 2 GM in SODIUM CHLORIDE 0.9% IV 100 ML 200 ML IVPB ×2 (00:30→08:30)
[2022-04-01] MEDS: ALBUTEROL SULFATE NEB 2.5 MG/0.5 ML INH INHALATION ×4 (02:13→20:17)
[2022-04-01] MEDS: IPRATROPIUM BR 0.02% INH SOLN 0.5 MG/2.5 ML VIAL INHALATION ×4 (02:13→20:17)
[2022-04-01 05:14] LABS: Basophils Percent Auto 0.1 % (0.2-1.2); Eosinophils Absolute Auto 0.1 K/mm3 (0-0.3); Eosinophils Percent Auto 1.3 % (0-4.4); Hematocrit 28.5 % (37.0-47.0); Hemoglobin 8.5 g/dL (12.0-15.0); Immature Granulocyte Absolute 0.05 K/mm3 (0.00-0.031); Immature Granulocyte Percent A 0.7 % (0-0.5); Lymphocytes Absolute Auto 0.42 K/mm3 (0.9-3.2); Lymphocytes Percent Auto 6.1 % (18.3-44.2); Mean Corpuscular HGB Conc 29.8 g/dl (32-36); Mean Corpuscular Hemoglobin 30.7 pg (26-34); Mean Corpuscular Volume 102.9 fl (80-100); Monocytes Absolute Auto 0.3 K/mm3 (0.1-0.6); Monocytes Percent Auto 4.3 % (2.6-8.5); Neutrophils Absolute Auto 6.1 K/mm3 (1.3-6.7); Neutrophils Percent Auto 87.5 % (45.5-73.1); Platelet Count Result 160 k/mm3 (150-375); Red Blood Count 2.77 M/mm3 (4.2-5.4); White Blood Count 6.9 K/mm3 (4.5-10.0)
[2022-04-01 05:28] LABS: Alanine Aminotransferase 27 U/L (6-35); Albumin Level 2.4 g/dL (3.5-5.1); Alkaline Phosphatase 88 U/L (38-126); Anion Gap 5 mmol/L (8-16); Aspartate Amino Transferase 38 U/L (14-36); Bilirubin,Total 0.2 mg/dL (0.2-1.3); Blood Urea Nitrogen 35 mg/dL (7-17); Calcium 7.5 mg/dL (8.4-10.2); Carbon Dioxide 22 mmol/L (22-30); Chloride 108 mmol/L (98-107); Estimated CRCL calculation 30 ml/min; Estimated Glomerular Filt Rate 47; Glucose 121 mg/dL (65-110); Magnesium 1.9 mg/dL (1.6-2.3); Phosphorus 4.6 mg/dL (2.5-4.5); Potassium 4.7 mmol/L (3.4-5.0); Sodium 135 mmol/L (137-145)
[2022-04-01 05:46] LABS: Hypochromasia 1+ (NORMAL); Platelet Estimate Adequate (Adequate)
[2022-04-01 06:08] LABS: Cortisol Random 5.18 ug/dL
[2022-04-01 06:19] LABS: Thyroid Stimulating Hormone Reflex 0.675 uIU/mL (0.465-4.68)
[2022-04-01 06:41] LABS: Folic Acid > 20.0 ng/mL (2.76->20)
--- NOTE | 2022-04-01 08:00 | ECG_ITS ---
Measurements Intervals [place] Rate: 69 P: GA: 0 QRS: -76 QRSD: 166 T: 77 QT: 476 QTc: 513 Interpretive Statements ELECTRONIC VENTRIUCLAR PACEMAKER UNDERLYING PROBABLY ATRIAL FLUTTER/TACHYCARDIA NO FURTHER INTERPRETATION IS POSSIBLE ABNORMAL ECG Electronically Signed On 04-01-2022 10:01:56 CDT by David Reyes D.O.
[2022-04-01] MEDS: oxyCODONE HCL (*CRX) 10 MG TAB SR 12HR 20 MG PO ×2 (08:29→21:50)
[2022-04-01] MEDS: PANTOPRAZOLE 40 MG TABLET PO ×2 (08:31→17:24)
[2022-04-01] MEDS: METOPROLOL SUCCINATE EXT REL 50 MG TABCR PO (08:31)
[2022-04-01] MEDS: TOLNAFTATE 1% POWDER 45 GM BTL 1 APPLIC TOPICAL ×2 (08:31→21:50)
[2022-04-01] MEDS: FOLIC ACID 1 MG TABLET PO (08:31)
[2022-04-01] MEDS: SILVERGEL (ELTA) 45 ML 1 APPLIC TOPICAL (08:31)
[2022-04-01] MEDS: FERROUS SULFATE 324 MG TABLET PO ×2 (08:32→17:24)
[2022-04-01] MEDS: GABAPENTIN 300 MG CAPSULE PO ×3 (08:32→17:00)
[2022-04-01] MEDS: COLLAGENASE OINT 30 GM TUBE 1 APPLIC TOPICAL (08:33)
[2022-04-01 08:43] LABS: Glucose Point of Care 113 mg/dl (65-105)
[2022-04-01] MEDS: SODIUM CHLORIDE 0.9% IV 1,000 ML 75 ML IV CONT (08:43)
--- NOTE | 2022-04-01 08:52 | PCSTNOTE ---
Please refer to the Bedside Swallow Evaluation in the EMR. Please note, silent aspiration cannot be ruled out at bedside.
--- NOTE | 2022-04-01 11:34 | P.PNIM_ITS ---
Progress Note: A&P Assessment and Plan (1) Hyperkalemia: Code(s): E87.5 - Hyperkalemia Status: Acute Assessment and Plan: Potassium was 6.1 on admission. EKG did show peaked T-waves. Potassium was treated appropriately. Repeat potassium normal now Etiology unclear since patient is not on Fab, ARB or potassium. Repeat EKG showing improvement. TSH and Cortisol level okay. Continue to follow. (2) Sepsis: Code(s): A41.9 - Sepsis, unspecified organism Status: Acute Assessment and Plan: Patient presents with confusion and found to have leukocytosis and mild tachycardia. CT brain showing no acute process. [place] related to UTI and/or PNA. Mental status has improved. White count has normalized. Urine culture positive. Blood cultures no growth to date. Continue current IV antibiotics. (3) Pneumonia: Qualifiers: Laterality: bilateral Lung location: unspecified part of lung Pneumonia type: due to unspecified organism Qualified Code(s): J18.9 - Pneumonia, unspecified organism Code(s): J18.9 - Pneumonia, unspecified organism Status: Acute Assessment and Plan: Patient's chest x-ray is concerning for pneumonia. COVID and influenza PCR negative. Clinically improved. No further wheezing. Continue IV antibiotics. Follow-up on culture results. Narrow antibiotics when able. (4) Elevated troponin: Code(s): R77.8 - Other specified abnormalities of plasma proteins Status: Acute Assessment and Plan: Troponin elevated to 0.23. EKG showing anterior lateral ST T wave changes with deep T wave inversion. This could be from the hyperkalemia. Chest x-ray showing atypical infection. Patient denies any chest pain or shortness of breath. Suspect mildly elevated troponins related to the sepsis picture and not coronary disease. Will continue to follow. Appreciate Cardiology input. (5) Acute UTI: Code(s): N39.0 - Urinary tract infection, site not specified Status: Acute Assessment and Plan: UA noted. Urine culture positive. Will continue IV antibiotics for now and narrow coverage once culture results are known. (6) Skin tear: Status: Acute Assessment and Plan: Patient with multiple skin tears in various locations. She also has the chronic right foot ulcer. Wound Care consulted and appreciate their input. Continue current wound care dressings. Continue current topical medications. (7) Dementia: Code(s): F03.90 - Unspecified dementia without behavioral disturbance Status: Acute Assessment and Plan: Patient with known dementia. She may have behavioral disorder component associated with dementia. She is on Remeron at night which has been continued. Stable. Continue to follow. (8) H/O prosthetic heart valve: Code(s): Z95.2 - Presence of prosthetic heart valve Status: Acute Assessment and Plan: Patient has known mechanical mitral valve and possibly a mechanical aortic valve as well. INR is therapeutic at 3.0. Check daily INR. Continue Coumadin. (9) Anemia: Code(s): D64.9 - Anemia, unspecified Status: Acute Assessment and Plan: Patient has a chronic anemia mostly in the 9-10 range when she is well. Hemoglobin is 11.1 on admission and dropped to 8-9 range. Macrocytosis noted but B12/Folate normal. Besides oozing from her skin traumas, there has been no evidence of acute blood loss.Could be related to re-hydration. Check iron studies but last year, these were more consistent with anemia of chronic dis
[2022-04-01 12:20] LABS: Glucose Point of Care 156 mg/dl (65-105)
--- NOTE | 2022-04-01 15:15 | PM.PNCARD ---
Progress Note: A&P Additional Plan -syncope -mechanical aortic, mitral valves -atrial fibrillation on warfarin, INR 2.6 -pacemaker -COPD This is a 81-year-old female who presents with syncopal episode. Chest x-ray suggestive possible infection, she had leukocytosis and admission with white cell count 25 K, L potassium admission also was 6 with creatinine 1 .2 and GFR estimated at 27. She sustained severe carts in her scalp, left arm, leg. -device function normally, no arrhythmias. -agree with antibiotics to treat possible pneumonia. -meanwhile will continue warfarin with INR goal 2.5 - 3.5 -Records requested from [place] -Awaiting echo read Workup thus far has not revealed any cardiac cause for syncope. Cardiology will sign off for now. 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 Puente and her EP, Dr. Hu at [place]. Please do not hesitate to contact us with any questions regarding the care of this patient. Subjective Date/time seen: 04/01/22 15:15 cardiology follow-up for elevated troponin, syncope, AFib, mechanical mitral and aortic valves Feeling better today had mild headache this morning but it has resolved at this point. She does not have any chest pain or shortness of breath. Review of Systems Constitutional: Constitutional: Denies chills, Denies fever(s), Denies poor appetite and Reports weakness Eyes: Eyes: Denies eye discharge, Denies loss of vision, Denies eye pain and Denies photophobia ENT: Denies dizziness, Denies epistaxis, Denies nasal congestion and Denies sore throat Cardiovascular: Cardiovascular: Denies chest pain, Reports syncope, Denies pedal edema, Denies leg edema, Denies palpitations, Denies dyspnea, Denies dyspnea on exertion and Denies orthopnea Respiratory: Respiratory: Denies cough, Denies dyspnea, Denies dyspnea on exertion and Denies wheezing Gastrointestinal: Gastrointestinal: Denies abdominal pain, Denies diarrhea, Denies nausea and Denies vomiting Genitourinary: Genitourinary: Denies hematuria, Denies genital lesions and Denies dysuria Musculoskeletal: Musculoskeletal: Denies arthralgias, Denies joint swelling and Denies numbness Integumentary/Breasts: Skin/Breast: Denies pruritus and Denies rash Neurologic: Denies dizziness, Reports syncope, Denies loss of vision, Denies numbness and Reports weakness Psychiatric: Psychiatric: Denies anxiety and Denies depression Endocrine: Endocrine: Denies cold intolerance, Denies heat intolerance and Denies palpitations Hematologic/Lymphatic: Hematologic/Lymphatic: Denies easy bleeding and Denies easy bruising Allergic/Immunologic: Allergic/Immunologic: Denies urticaria and Denies wheezing Exam Const: General: cooperative, comfortable and no acute distress Nutritional Appearance: cachectic and malnourished Orientation/consciousness: patient oriented x3 HENMT: Head: normal to inspection, normocephalic and atraumatic Ears: hearing grossly normal bilaterally General nose exam: Normal external nose present, Normal nares present and no nasal discharge noted Face and sinus: normal facial exam and no erythema Mouth: No drooling and No restricted motion Throat: uvula midline Eyes: General: appearance normal, both eyes and all related structures Alignment and Position: position normal Conjunctivae: conjunctivae normal Sclera: sclerae normal Direct Ophthalmoscopy: No photophobia Neck: Neck: normal visual inspection and no JVD Thyroid: thyroid normal Carotids: no bruits Lymphatic: lymphedema not noted Chest: Chest palpation & inspection: normal inspection of the chest and no tenderness Resp: Effort & Inspection: normal respiratory effort and no nasal flaring Auscultation: clear to auscultation bilaterally, no crackles, no rales and no wheezes Cardio: Jugular venous distension: no JVD Rate: regular rate Rhythm: regular rhythm Heart sounds: S1 normal heart sound present, S2 normal heart sound present, no gallops, no murmurs and no rubs
[2022-04-01] MEDS: WARFARIN (*PBKC) 4 MG TABLET PO (17:23)
[2022-04-01] MEDS: WARFARIN (*PBKC) 0.5 MG TABLET PO (17:24)
[2022-04-01 18:00] LABS: Glucose Point of Care 260 mg/dl (65-105)
--- NOTE | 2022-04-01 18:45 | PC.NURSE ---
This patient, Nadege Bryan, was transferred to [[id number]] on 04/01/22 at 1846. Personal belongings sent with patient. Pt. stable upon transfer. Appropriate documentation sent with patient.
[2022-04-01] MEDS: MIRTAZAPINE 15 MG TABLET PO (21:50)
[2022-04-01] MEDS: levoFLOXacin 250 MG/D5W 50 ML 250 MG/50 ML BAG 50 MG IVPB (21:57)
[2022-04-02] VITALS (16 sets, daily range): BP systolic 115–149; BP diastolic 49–69; PULSE 68–82; RESP 16–18; TEMP 35.9–36.9; O2SAT 96–100
[2022-04-02] MEDS: AZTREONAM 2 GM in SODIUM CHLORIDE 0.9% IV 100 ML 200 ML IVPB (00:26)
[2022-04-02] MEDS: ALBUTEROL SULFATE NEB 2.5 MG/0.5 ML INH INHALATION ×4 (01:35→20:27)
[2022-04-02] MEDS: IPRATROPIUM BR 0.02% INH SOLN 0.5 MG/2.5 ML VIAL INHALATION ×4 (01:35→20:27)
[2022-04-02 05:30] LABS: Hematocrit 29.5 % (37.0-47.0); Hemoglobin 8.9 g/dL (12.0-15.0); Mean Corpuscular HGB Conc 30.2 g/dl (32-36); Mean Corpuscular Hemoglobin 30.8 pg (26-34); Mean Corpuscular Volume 102.1 fl (80-100); Mean Platelet Volume 10.4 fl (7.4-10.4); Platelet Count Result 187 k/mm3 (150-375); Red Blood Count 2.89 M/mm3 (4.2-5.4); White Blood Count 8.8 K/mm3 (4.5-10.0)
[2022-04-02 05:36] LABS: INR 3.8; Prothrombin Time 36.6 Seconds (11.1-14.7)
[2022-04-02 05:37] LABS: Anion Gap 8 mmol/L (8-16); Blood Urea Nitrogen 39 mg/dL (7-17); Calcium 7.5 mg/dL (8.4-10.2); Carbon Dioxide 20 mmol/L (22-30); Chloride 109 mmol/L (98-107); Estimated CRCL calculation 30 ml/min; Estimated Glomerular Filt Rate 47; Glucose 190 mg/dL (65-110); Potassium 4.4 mmol/L (3.4-5.0); Sodium 137 mmol/L (137-145)
[2022-04-02 05:53] LABS: Iron 41 ug/dL (37-170)
[2022-04-02 06:03] LABS: Percent Iron Saturation 21 % (20-50)
[2022-04-02 07:30] LABS: Glucose Point of Care 159 mg/dl (65-105)
[2022-04-02] MEDS: AZTREONAM 2 GM in SODIUM CHLORIDE 0.9% IV 100 ML IVPB ×3 (10:16→23:33)
[2022-04-02] MEDS: TOLNAFTATE 1% POWDER 45 GM BTL 1 APPLIC TOPICAL ×2 (10:17→20:20)
[2022-04-02] MEDS: oxyCODONE HCL (*CRX) 10 MG TAB SR 12HR 20 MG PO ×2 (10:27→20:20)
[2022-04-02] MEDS: METOPROLOL SUCCINATE EXT REL 50 MG TABCR PO (10:29)
[2022-04-02] MEDS: GABAPENTIN 300 MG CAPSULE PO ×3 (10:29→16:36)
[2022-04-02] MEDS: FERROUS SULFATE 324 MG TABLET PO ×2 (13:11→16:36)
[2022-04-02] MEDS: FOLIC ACID 1 MG TABLET PO (13:11)
[2022-04-02] MEDS: SILVERGEL (ELTA) 45 ML 1 APPLIC TOPICAL (13:12)
[2022-04-02] MEDS: COLLAGENASE OINT 30 GM TUBE 1 APPLIC TOPICAL (13:12)
[2022-04-02] MEDS: PANTOPRAZOLE 40 MG TABLET PO ×2 (13:12→16:36)
--- NOTE | 2022-04-02 14:17 | PM.IMPN ---
Progress Note: A&P Assessment and Plan (1) Hyperkalemia: Code(s): E87.5 - Hyperkalemia Status: Acute Assessment and Plan: Potassium was 6.1 on admission. EKG did show peaked T-waves. Potassium was treated appropriately. Repeat potassium normal now Etiology unclear since patient is not on Fab, ARB or potassium. Repeat EKG showing improvement. TSH and Cortisol level okay. Continue to follow. (2) Sepsis: Code(s): A41.9 - Sepsis, unspecified organism Status: Acute Assessment and Plan: Patient presents with confusion and found to have leukocytosis and mild tachycardia. CT brain showing no acute process. [place] related to UTI and/or PNA. Mental status has improved. White count has normalized. Urine culture positive. Blood cultures no growth to date. Continue current IV antibiotics. (3) Pneumonia: Qualifiers: Laterality: bilateral Lung location: unspecified part of lung Pneumonia type: due to unspecified organism Qualified Code(s): J18.9 - Pneumonia, unspecified organism Code(s): J18.9 - Pneumonia, unspecified organism Status: Acute Assessment and Plan: Patient's chest x-ray is concerning for pneumonia. COVID and influenza PCR negative. Clinically improved. No further wheezing. Continue IV antibiotics. Follow-up on culture results. Narrow antibiotics when able. (4) Elevated troponin: Code(s): R77.8 - Other specified abnormalities of plasma proteins Status: Acute Assessment and Plan: Troponin elevated to 0.23. EKG showing anterior lateral ST T wave changes with deep T wave inversion. This could be from the hyperkalemia. Chest x-ray showing atypical infection. Patient denies any chest pain or shortness of breath. Suspect mildly elevated troponins related to the sepsis picture and not coronary disease. Will continue to follow. Appreciate Cardiology input. (5) Acute UTI: Code(s): N39.0 - Urinary tract infection, site not specified Status: Acute Assessment and Plan: UA noted. Urine culture positive. Will continue IV antibiotics for now and narrow coverage once culture results are known. (6) Skin tear: Status: Acute Assessment and Plan: Patient with multiple skin tears in various locations. She also has the chronic right foot ulcer. Wound Care consulted and appreciate their input. Continue current wound care dressings. Continue current topical medications. (7) Dementia: Code(s): F03.90 - Unspecified dementia without behavioral disturbance Status: Acute Assessment and Plan: Patient with known dementia. She may have behavioral disorder component associated with dementia. She is on Remeron at night which has been continued. Stable. Continue to follow. (8) H/O prosthetic heart valve: Code(s): Z95.2 - Presence of prosthetic heart valve Status: Acute Assessment and Plan: Patient has known mechanical mitral valve and possibly a mechanical aortic valve as well. INR is therapeutic at 3.0. Check daily INR. Continue Coumadin. (9) Anemia: Code(s): D64.9 - Anemia, unspecified Status: Acute Assessment and Plan: Patient has a chronic anemia mostly in the 9-10 range when she is well. Hemoglobin is 11.1 on admission and dropped to 8-9 range. Macrocytosis noted but B12/Folate normal. Besides oozing from her skin traumas, there has been no evidence of acute blood loss.Could be related to re-hydration. Check iron studies but last year, these were more consistent with anemia of chronic disease. Will follow for now. IV. (10) Ulcer of foot, chronic: Qualifiers: Laterality: right Non-pressure ulcer stage: unspecified non-pressure ulcer stage Qualified Code(s): L97.519 - Non-pressure chronic ulcer of other part of right foot with unspecified severity Code(s): L97.509 - Non-pressure chronic ulcer of other part of unspe
[2022-04-02] MEDS: WARFARIN (*PBKC) 3 MG TABLET PO (16:36)
[2022-04-02 20:03] LABS: Glucose Point of Care 125 mg/dl (65-105)
[2022-04-02] MEDS: MIRTAZAPINE 15 MG TABLET PO (20:20)
[2022-04-02] MEDS: MELATONIN 5 MG TABLET PO (20:21)
[2022-04-03] VITALS (14 sets, daily range): BP systolic 120–142; BP diastolic 45–58; PULSE 60–74; RESP 14–20; TEMP 36.4–36.6; O2SAT 96–100
[2022-04-03] MEDS: IPRATROPIUM BR 0.02% INH SOLN 0.5 MG/2.5 ML VIAL INHALATION ×3 (02:23→19:29)
[2022-04-03] MEDS: ALBUTEROL SULFATE NEB 2.5 MG/0.5 ML INH INHALATION ×3 (02:23→19:29)
[2022-04-03 05:39] LABS: Hemoglobin 8.6 g/dL (12.0-15.0); Mean Corpuscular HGB Conc 29.7 g/dl (32-36); Mean Corpuscular Hemoglobin 30.6 pg (26-34); Mean Corpuscular Volume 103.2 fl (80-100); Mean Platelet Volume 10.4 fl (7.4-10.4); Platelet Count Result 174 k/mm3 (150-375); Red Blood Count 2.81 M/mm3 (4.2-5.4); Red Cell Distribution Width 16.7 % (11.5-14.5); White Blood Count 10.6 K/mm3 (4.5-10.0)
[2022-04-03 05:49] LABS: Anion Gap 5 mmol/L (8-16); Blood Urea Nitrogen 38 mg/dL (7-17); Calcium 7.8 mg/dL (8.4-10.2); Carbon Dioxide 21 mmol/L (22-30); Chloride 113 mmol/L (98-107); Estimated CRCL calculation 36 ml/min; Estimated Glomerular Filt Rate 60; Glucose 138 mg/dL (65-110); Sodium 139 mmol/L (137-145)
[2022-04-03 07:19] LABS: Prothrombin Time 48.4 Seconds (11.1-14.7)
[2022-04-03 07:37] LABS: INR 5.5
[2022-04-03 07:50] LABS: Glucose Point of Care 140 mg/dl (65-105)
[2022-04-03] MEDS: GABAPENTIN 300 MG CAPSULE PO ×3 (08:01→16:24)
[2022-04-03] MEDS: FERROUS SULFATE 324 MG TABLET PO ×2 (08:01→16:24)
[2022-04-03] MEDS: PANTOPRAZOLE 40 MG TABLET PO ×2 (08:02→16:24)
[2022-04-03] MEDS: oxyCODONE HCL (*CRX) 10 MG TAB SR 12HR 20 MG PO ×2 (08:02→21:53)
[2022-04-03] MEDS: FOLIC ACID 1 MG TABLET PO (08:02)
[2022-04-03] MEDS: METOPROLOL SUCCINATE EXT REL 50 MG TABCR PO (08:03)
[2022-04-03] MEDS: AZTREONAM 2 GM in SODIUM CHLORIDE 0.9% IV 100 ML IVPB ×2 (08:06→16:24)
[2022-04-03] MEDS: SILVERGEL (ELTA) 45 ML 1 APPLIC TOPICAL (08:07)
[2022-04-03] MEDS: TOLNAFTATE 1% POWDER 45 GM BTL 1 APPLIC TOPICAL ×2 (08:07→21:55)
[2022-04-03] MEDS: COLLAGENASE OINT 30 GM TUBE 1 APPLIC TOPICAL (08:07)
[2022-04-03 11:52] LABS: Glucose Point of Care 119 mg/dl (65-105)
[2022-04-03] MEDS: levoFLOXacin 250 MG/D5W 50 ML 250 MG/50 ML BAG 50 MG IVPB (12:17)
[2022-04-03] MEDS: FUROSEMIDE INJ 40 MG/4 ML VIAL 20 MG IV PUSH (12:18)
--- NOTE | 2022-04-03 12:24 | PCSTNOTE ---
Please refer to the Modified Barium Swallow Evaluation in the EMR.
[2022-04-03 16:20] LABS: Glucose Point of Care 197 mg/dl (65-105)
[2022-04-03] MEDS: MELATONIN 5 MG TABLET PO (21:53)
[2022-04-03] MEDS: MIRTAZAPINE 15 MG TABLET PO (21:55)
[2022-04-03] MEDS: SALINE LOCK FLUSH 10 ML IV PUSH (21:56)
[2022-04-04] VITALS (14 sets, daily range): BP systolic 117–144; BP diastolic 45–70; PULSE 68–95; RESP 18–22; TEMP 36.2–37.2; O2SAT 70–98
[2022-04-04] MEDS: AZTREONAM 2 GM in SODIUM CHLORIDE 0.9% IV 100 ML 200 ML IVPB (00:50)
[2022-04-04] MEDS: IPRATROPIUM BR 0.02% INH SOLN 0.5 MG/2.5 ML VIAL INHALATION ×4 (02:01→19:45)
[2022-04-04] MEDS: ALBUTEROL SULFATE NEB 2.5 MG/0.5 ML INH INHALATION ×4 (02:01→19:45)
[2022-04-04] MEDS: SALINE LOCK FLUSH 10 ML IV PUSH ×3 (05:27→20:49)
[2022-04-04 05:38] LABS: Hematocrit 27.5 % (37.0-47.0); Hemoglobin 8.3 g/dL (12.0-15.0); Mean Corpuscular HGB Conc 30.2 g/dl (32-36); Mean Corpuscular Hemoglobin 30.5 pg (26-34); Mean Corpuscular Volume 101.1 fl (80-100); Mean Platelet Volume 9.9 fl (7.4-10.4); Platelet Count Result 202 k/mm3 (150-375); Red Blood Count 2.72 M/mm3 (4.2-5.4); Red Cell Distribution Width 16.6 % (11.5-14.5); White Blood Count 11.5 K/mm3 (4.5-10.0)
[2022-04-04 05:52] LABS: INR 4.3; Prothrombin Time 40.2 Seconds (11.1-14.7)
[2022-04-04 05:53] LABS: Anion Gap 3 mmol/L (8-16); Blood Urea Nitrogen 38 mg/dL (7-17); Calcium 7.8 mg/dL (8.4-10.2); Carbon Dioxide 21 mmol/L (22-30); Chloride 110 mmol/L (98-107); Estimated CRCL calculation 36 ml/min; Estimated Glomerular Filt Rate 60; Glucose 145 mg/dL (65-110); Potassium 5.3 mmol/L (3.4-5.0); Sodium 134 mmol/L (137-145)
[2022-04-04 08:00] LABS: Glucose Point of Care 133 mg/dl (65-105)
[2022-04-04] MEDS: oxyCODONE HCL (*CRX) 10 MG TAB SR 12HR 20 MG PO ×2 (08:45→20:48)
[2022-04-04] MEDS: GABAPENTIN 300 MG CAPSULE PO ×3 (08:46→16:50)
[2022-04-04] MEDS: METOPROLOL SUCCINATE EXT REL 50 MG TABCR PO (08:46)
[2022-04-04] MEDS: PANTOPRAZOLE 40 MG TABLET PO ×2 (08:46→16:50)
[2022-04-04] MEDS: FERROUS SULFATE 324 MG TABLET PO (08:46)
[2022-04-04] MEDS: FOLIC ACID 1 MG TABLET PO (08:47)
[2022-04-04] MEDS: SILVERGEL (ELTA) 45 ML 1 APPLIC TOPICAL (08:48)
[2022-04-04] MEDS: TOLNAFTATE 1% POWDER 45 GM BTL 1 APPLIC TOPICAL ×2 (08:48→20:49)
[2022-04-04] MEDS: COLLAGENASE OINT 30 GM TUBE 1 APPLIC TOPICAL (08:48)
--- NOTE | 2022-04-04 09:30 | PCPTNOTE ---
Attempted Physical therapy evaluation, patient refused stating she is too tired to participate. Will Follow.
[2022-04-04 12:04] LABS: Glucose Point of Care 120 mg/dl (65-105)
[2022-04-04] MEDS: polyethylene glycoL 3350 17 GM POWD.PACK PO ×2 (12:11→16:50)
[2022-04-04 12:44] LABS: Potassium 5.3 mmol/L (3.4-5.0)
[2022-04-04 12:52] LABS: NT Pro B Type Natriuretic Pept 4840 pg/mL (5-100)
--- NOTE | 2022-04-04 13:33 | PM.IMPN ---
Progress Note: A&P Assessment and Plan (1) Hyperkalemia: Code(s): E87.5 - Hyperkalemia Status: Acute Assessment and Plan: Potassium was 6.1 on admission. EKG did show peaked T-waves. Potassium was treated appropriately. Repeat potassium normalized but now elevated again now to 5.3. Etiology unclear since patient is not on JOSE RAMON, ARB or potassium. TSH and Cortisol level okay. Continue to follow. Lokelma once. Lasix once (2) Sepsis: Code(s): A41.9 - Sepsis, unspecified organism Status: Acute Assessment and Plan: Patient presents with confusion and found to have leukocytosis and mild tachycardia. CT brain showing no acute process. [place] related to UTI and/or PNA. Mental status has improved. White count did normalize but now higher again. Urine culture positive for Proteus. Blood cultures no growth to date. Will adjust abx (3) Pneumonia: Qualifiers: Laterality: bilateral Lung location: unspecified part of lung Pneumonia type: due to unspecified organism Qualified Code(s): J18.9 - Pneumonia, unspecified organism Code(s): J18.9 - Pneumonia, unspecified organism Status: Acute Assessment and Plan: Patient's chest x-ray was concerning for pneumonia. COVID and influenza PCR negative. On neb treatments. She remians on room air. Clinically improved but CXR worsening. No further wheezing. Was on Aztreonam and Levaquin added. Proteus is resistant to Levaquin. Aztreonam covers for Pseudomonas but felt less likely pseudomonas since CXR worsening since admission on treatment. Consider MRSA. Consider also CHF as etiology of worsening CXR. BNP 4840 but has been elevated before. Continue IV antibiotics but change to Rocephin and Doxycycline. Check MRSA nasal swab. Check Sputum. Lasix IV once (4) Elevated troponin: Code(s): R77.8 - Other specified abnormalities of plasma proteins Status: Acute Assessment and Plan: Troponin elevated to 0.23. EKG showing anterior lateral ST T wave changes with deep T wave inversion. This could be from the hyperkalemia. Chest x-ray showing atypical infection. Patient denies any chest pain or shortness of breath. Suspect mildly elevated troponins related to the sepsis picture and not coronary disease. Will continue to follow. Appreciate Cardiology input. (5) H/O prosthetic heart valve: Code(s): Z95.2 - Presence of prosthetic heart valve Status: Acute Assessment and Plan: Patient has known mechanical mitral valve and mechanical aortic valve as well. INR was supratherapeutic at 5.5 yesterday. Coumadin held and INR better at 4.3. Levaquin stopped. Half dose Coumadin today and continue to check daily INR. (6) Acute UTI: Code(s): N39.0 - Urinary tract infection, site not specified Status: Acute Assessment and Plan: UA noted. Urine culture positive with Proteus senstive to Rocephin. SHe has had Cefepime in the past. Will change to Rocephin. (7) Anemia: Code(s): D64.9 - Anemia, unspecified Status: Acute Assessment and Plan: Patient has a chronic anemia mostly in the 9-10 range when she is well. Hemoglobin was 11.1 on admission and dropped to 8-9 range. Macrocytosis noted but B12/Folate normal. Besides oozing from her skin traumas, there has been no evidence of acute blood loss. Drop in Hgb could be related to re-hydration. Iron studies more consistent with anemia of chronic disease. BUN elevated to 38 but noted since admission. Will follow for now. (8) Skin tear: Status: Acute Assessment and Plan: Patient with multiple skin tears in various locations. She also has the chronic right foot ulcer. Wound Care consulted and appreciate their input. Continue current wound care dressings. Continue current topical medications. (9) Dementia: Code(s): F03.90 - Unspecified dementia without behavioral disturbance Status: Acute As
[2022-04-04] MEDS: FUROSEMIDE INJ 40 MG/4 ML VIAL IV PUSH (14:42)
[2022-04-04] MEDS: SODIUM ZIRCONIUM CYCLOSILICATE 10 GM POWD.PACK PO (14:42)
[2022-04-04 16:24] LABS: Glucose Point of Care 123 mg/dl (65-105)
[2022-04-04] MEDS: WARFARIN (*PBKC) 2 MG TABLET PO (16:50)
[2022-04-04 20:09] LABS: Potassium 4.4 mmol/L (3.4-5.0)
[2022-04-04] MEDS: MELATONIN 5 MG TABLET PO (20:48)
[2022-04-04] MEDS: DOXYCYCLINE HYCLATE 100 MG TABLET PO (20:48)
[2022-04-04] MEDS: MIRTAZAPINE 15 MG TABLET PO (20:48)
[2022-04-04 21:31] LABS: Glucose Point of Care 212 mg/dl (65-105)
[2022-04-05] VITALS (9 sets, daily range): BP systolic 103–110; BP diastolic 49–62; PULSE 67–74; RESP 18–20; TEMP 36.1; O2SAT 95–97
[2022-04-05] MEDS: IPRATROPIUM BR 0.02% INH SOLN 0.5 MG/2.5 ML VIAL INHALATION ×3 (02:04→14:48)
[2022-04-05] MEDS: ALBUTEROL SULFATE NEB 2.5 MG/0.5 ML INH INHALATION ×3 (02:04→14:48)
[2022-04-05 06:10] LABS: Alanine Aminotransferase 18 U/L (6-35); Albumin Level 2.4 g/dL (3.5-5.1); Alkaline Phosphatase 85 U/L (38-126); Anion Gap 4 mmol/L (8-16); Aspartate Amino Transferase 19 U/L (14-36); Bilirubin,Total < 0.1 mg/dL (0.2-1.3); Blood Urea Nitrogen 33 mg/dL (7-17); Calcium 7.6 mg/dL (8.4-10.2); Carbon Dioxide 22 mmol/L (22-30); Chloride 109 mmol/L (98-107); Estimated CRCL calculation 36 ml/min; Estimated Glomerular Filt Rate 60; Glucose 283 mg/dL (65-110); Magnesium 1.9 mg/dL (1.6-2.3); Phosphorus 3.6 mg/dL (2.5-4.5); Potassium 4.1 mmol/L (3.4-5.0); Sodium 135 mmol/L (137-145)
[2022-04-05 06:11] LABS: Hematocrit 27.9 % (37.0-47.0); Hemoglobin 8.4 g/dL (12.0-15.0); Mean Corpuscular HGB Conc 30.1 g/dl (32-36); Mean Corpuscular Hemoglobin 30.7 pg (26-34); Mean Corpuscular Volume 101.8 fl (80-100); Mean Platelet Volume 10.6 fl (7.4-10.4); Platelet Count Result 232 k/mm3 (150-375); Red Blood Count 2.74 M/mm3 (4.2-5.4); Red Cell Distribution Width 16.8 % (11.5-14.5); White Blood Count 13.2 K/mm3 (4.5-10.0)
[2022-04-05] MEDS: SALINE LOCK FLUSH 10 ML IV PUSH (06:18)
[2022-04-05 07:18] LABS: Hemoglobin A1C 6.4 % (<5.7)
[2022-04-05 07:19] LABS: INR 3.5; Prothrombin Time 33.9 Seconds (11.1-14.7)
[2022-04-05 07:34] LABS: Glucose Point of Care 190 mg/dl (65-105)
[2022-04-05] MEDS: METOPROLOL SUCCINATE EXT REL 50 MG TABCR PO (08:42)
[2022-04-05] MEDS: oxyCODONE HCL (*CRX) 10 MG TAB SR 12HR 20 MG PO (08:42)
[2022-04-05] MEDS: DOXYCYCLINE HYCLATE 100 MG TABLET PO (08:43)
[2022-04-05] MEDS: PANTOPRAZOLE 40 MG TABLET PO (08:43)
[2022-04-05] MEDS: polyethylene glycoL 3350 17 GM POWD.PACK PO (08:43)
[2022-04-05] MEDS: GABAPENTIN 300 MG CAPSULE PO ×2 (08:43→12:06)
[2022-04-05] MEDS: FOLIC ACID 1 MG TABLET PO (08:43)
[2022-04-05] MEDS: TOLNAFTATE 1% POWDER 45 GM BTL 1 APPLIC TOPICAL (08:45)
[2022-04-05] MEDS: SILVERGEL (ELTA) 45 ML 1 APPLIC TOPICAL (08:45)
[2022-04-05] MEDS: COLLAGENASE OINT 30 GM TUBE 1 APPLIC TOPICAL (08:45)
--- NOTE | 2022-04-05 10:30 | PCNFU ---
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 We will continue current goal. Pt current nutrition is Minced and Moist, Level 5. Last recorded weight is 59.8 kg, up from 57.5 kg on admit. Bowel Motility:+BM reported 04/05 Labs Reviewed:Glu 283, BUN 33, Na 135, HCt 27.9,Hgb 8.4 Meds Noted:Miralax, Protonix, Remeron, Folic Acid, Atrovent, Rocephin, Albuterol, Neurontin Skin: Stage IV-heel/foot Additional Notes: Diet order has advanced to Minced and Moist, Level 5. Oral Intake reported: 50-75% of most meals. Diet supplements continue of Compact BID providing additional 220 kcals and 9 gms protein. Protein Modular for wound healing Prashanth BID providing an additional 90 kcals and 2.5 gms protein. Agree with diet orders. Monitor intake, wt, labs, skin. Follow up in 5 days.
[2022-04-05 11:33] LABS: Glucose Point of Care 143 mg/dl (65-105)
--- NOTE | 2022-04-05 12:46 | PM.DS ---
DS: Admitting Diagnosis Discharge Date 04/05/22 Admitting Diagnosis Fall DS: Discharge Diagnosis Discharge Diagnosis (1) Hyperkalemia: Code(s): E87.5 - Hyperkalemia Status: Acute Assessment and Plan: Potassium was 6.1 on admission. EKG did show peaked T-waves. Potassium was treated appropriately. Repeat potassium normalized but became elevated again to 5.3 that was treated appropriately. Etiology unclear since patient is not on JOSE RAMON, ARB or potassium. TSH and Cortisol level okay. Monitor after discharge. (2) Sepsis: Code(s): A41.9 - Sepsis, unspecified organism Status: Acute Assessment and Plan: Patient presents with confusion and found to have leukocytosis and mild tachycardia. CT brain showing no acute process. [place] related to UTI and/or PNA. Mental status has improved. White count did normalize but did trend up again but no fevers and she remained on room air. Urine culture positive for Proteus and she completed 7 days of treatment. Blood cultures no growth to date. (3) Pneumonia: Qualifiers: Laterality: bilateral Lung location: unspecified part of lung Pneumonia type: due to unspecified organism Qualified Code(s): J18.9 - Pneumonia, unspecified organism Code(s): J18.9 - Pneumonia, unspecified organism Status: Acute Assessment and Plan: Patient's chest x-ray was concerning for pneumonia. COVID and influenza PCR negative. We continued her neb treatments. She remained on room air. Clinically improved but CXR worsened; consider pulmonary edema vs PNA. Was on Aztreonam and Levaquin. Proteus was resistant to Levaquin. Worsening CXR may be lung inaging findings catching up to the clinical situation. MRSA being considered so Doxycycline added. Consider also CHF as etiology and BNP 4840. She was treated with intermittent doses of Lasix. She remained on room air. She still has a cough but this is chronic x1-2 months. (4) Elevated troponin: Code(s): R77.8 - Other specified abnormalities of plasma proteins Status: Acute Assessment and Plan: Troponin elevated to 0.23. EKG showed anterior lateral ST T wave changes with deep T wave inversion. This could be from the hyperkalemia. Chest x-ray on admission showed atypical infection. Echo with EF 60-65%, Grade I diastolic dysfunction and moderate pulmonary HTN. Patient denied any chest pain or shortness of breath. Suspect mildly elevated troponins related to the sepsis picture and not coronary disease. Cardiology involved in her care. (5) H/O prosthetic heart valve: Code(s): Z95.2 - Presence of prosthetic heart valve Status: Acute Assessment and Plan: Patient has known mechanical mitral valve and mechanical aortic valve. INR was supratherapeutic at 5.5 at one point. Coumadin held and INR better at 3.5 so Coumadin resumed. Levaquin stopped. Echo showing mechanical mitral valve appearing normal and is functionally normally; mechanical aortic valve appears be function normally but is poorly visualized. Will need frequent INR. (6) Acute UTI: Code(s): N39.0 - Urinary tract infection, site not specified Status: Acute Assessment and Plan: UA noted. Urine culture positive with Proteus sensitive to Rocephin. She has had Cefepime in the past without issue. She completed a course of abx. (7) Anemia: Code(s): D64.9 - Anemia, unspecified Status: Acute Assessment and Plan: Patient has a chronic anemia mostly in the 9-10 range when she is well. Hemoglobin was 11.1 on admission and dropped to 8-9 range. Macrocytosis noted but B12/Folate normal. Besides oozing from her skin traumas, there has been no evidence of acute blood loss. Drop in Hgb could be related to re-hydration. Iron studies more consistent with anemia of chronic disease. (8) Skin tear: Status: Acute Assessment and Plan: Patient with multiple skin
[2022-04-05 14:20] LABS: EDCOVIDSCREEN Negative (Negative)
--- NOTE | 2022-04-06 11:39 | PC.NURSE ---
Blood cx are negative. MRSA nasal swab is positive. Dr. Royer helm.
[2022-04-07 18:22] LABS: Pneumococcal Antigen Urine Not Detected (Not Detected)
[2022-04-07 22:56] LABS: Legionella pneumophila Ag Ur Not Detected (Not Detected)
--- NOTE | 2022-04-08 10:04 | PC.NURSE ---
Urine legionella and pneumococcal Ag are both negative. BLood cx are negative. Sputum cx shows MRSA as well as nasal swab. Dr. Royer helm.
--- NOTE | 2022-04-08 10:29 | PC.NURSE ---
Dr. Linton ordered Bactroban to bilateral nares BID for 5 days. Called [facility] with new orders. [facility] nurse is to contact patient's PCP or CT doc to start patient on new antibiotic since MRSA resistant to Doxy. Left this info for nurse. Also faxed order/info/lab results to [facility], directly to nursing station.
--- NOTE | 2022-04-08 10:38 | PC.NURSE ---
[facility] requesting orders/labs be faxed to [phone]. Faxed to this number.
== END 2022-04-05 15:45 | DRG 871 ==
LOC: ANHED 20:51 → ANHICU 03-31 02:29 → ANH2MED 04-04 07:59 → ANHICU 04-06 15:34
PROVIDERS: Family Medicine; Physician Assistant; Admitting Provider Internal Medicine; Emergency Provider Emergency Medicine; PCP Family Medicine; Visit Provider Internal Medicine
DX: A41.9 Sepsis, unspecified organism (principal); J15.212 Pneumonia due to Methicillin resistant Staphylococcus aureus; N39.0 Urinary tract infection, site not specified; Z16.39 Resistance to other specified antimicrobial drug; F03.91 Unspecified dementia, unspecified severity, with behavioral disturbance; I13.0 Hypertensive heart and chronic kidney disease with heart failure and stage 1 through stage 4 chronic kidney disease, or unspecified chronic kidney disease; I50.32 Chronic diastolic (congestive) heart failure; N18.4 Chronic kidney disease, stage 4 (severe); J44.0 Chronic obstructive pulmonary disease with (acute) lower respiratory infection; R64 Cachexia; E46 Unspecified protein-calorie malnutrition; Z20.822 Contact with and (suspected) exposure to COVID-19; E11.22 Type 2 diabetes mellitus with diabetic chronic kidney disease; B96.4 Proteus (mirabilis) (morganii) as the cause of diseases classified elsewhere; S01.01XA Laceration without foreign body of scalp, initial encounter; S41.111A Laceration without foreign body of right upper arm, initial encounter; S81.811A Laceration without foreign body, right lower leg, initial encounter; W05.0XXA Fall from non-moving wheelchair, initial encounter; E87.5 Hyperkalemia; D63.8 Anemia in other chronic diseases classified elsewhere; R77.8 Other specified abnormalities of plasma proteins; I48.0 Paroxysmal atrial fibrillation; L97.519 Non-pressure chronic ulcer of other part of right foot with unspecified severity; K21.9 Gastro-esophageal reflux disease without esophagitis; E11.42 Type 2 diabetes mellitus with diabetic polyneuropathy; G47.33 Obstructive sleep apnea (adult) (pediatric); M81.0 Age-related osteoporosis without current pathological fracture; E55.9 Vitamin D deficiency, unspecified; Z95.0 Presence of cardiac pacemaker; Z95.2 Presence of prosthetic heart valve; Z79.01 Long term (current) use of anticoagulants; Z89.612 Acquired absence of left leg above knee; Z68.22 Body mass index [BMI] 22.0-22.9, adult
CPT/HCPCS: 36415; 36569; 70450; 71045; 72125; 73030; 73560; 74019; 80048; 80053; 80076; 81001; 82533; 82607; 82728; 82746; 82948; 83036; 83540; 83550; 83735; 83880; 84100; 84132; 84443; 84484; 85014; 85018; 85025; 85027; 85610; 86140; 87040; 87070; 87077; 87081; 87086; 87088; 87186; 87205; 87426; 87449; 87502; 87899; 92610; 92611; 93005; 93306; 94640; 96361; 96365; 96375; 97161; 97165; 99285; A9270; C1751; C9803; J0610; J0696; J1815; J1940; J1956; J2270; J7030; U0003; U0005